=== PATIENT | female | born 1995 | race Caucasian/White ===

== ENCOUNTER 2016-07-31 23:42 | Emergency (ER) | payer OTHER ==
[2016-08-01 00:40] LABS: AUTOMATED NEUTROPHIL # 3.8 TH/MM3 (1.8-7.7); BASOPHIL % 0.4 % (0.0-2.0); EOSINOPHIL # 0.1 TH/MM3 (0-0.4); EOSINOPHIL % 1.7 % (0.0-4.0); HEMATOCRIT 39.3 % (35.0-46.0); HEMO FLAGS DIFF FINAL; LYMPH % 37.9 % (9.0-44.0); LYMPHOCYTE # 2.9 TH/MM3 (1.0-4.8); MEAN CELL VOLUME 93.8 FL (80.0-100.0); MEAN CORPUSCULAR HEMOGLOBIN 33.6 PG (27.0-34.0); MEAN CORPUSCULAR HGB CONC 35.8 % (32.0-36.0); MONO % 10.3 % (0.0-8.0); NEUT % 49.7 % (16.0-70.0); PLATELET COUNT 219 TH/MM3 (150-450); RED BLOOD COUNT 4.19 MIL/MM3 (4.00-5.30); RED CELL DISTRIBUTION WIDTH 13.4 % (11.6-17.2); WHITE BLOOD COUNT 7.7 TH/MM3 (4.0-11.0)
[2016-08-01 01:15] LABS: ALKALINE PHOSPHATASE 69 U/L (45-117); ALT (GPT) 20 U/L (10-53); ANION GAP 8 MEQ/L (5-15); AST (GOT) 25 U/L (15-37); BICARBONATE 25.8 MEQ/L (21.0-32.0); BLOOD UREA NITROGEN 22 MG/DL (7-18); CHLORIDE 106 MEQ/L (98-107); GLOMERULAR FILTRATION RATE 93 ML/MIN (>89); SODIUM (NA) 140 MEQ/L (136-145); TOTAL BILIRUBIN ADULT 0.2 MG/DL (0.2-1.0)
[2016-08-01 01:18] LABS: ACETAMINOPHEN LESS THAN 2.0 MCG/ML (10.0-30.0); POTASSIUM 4.1 MEQ/L (3.5-5.1)
--- NOTE | 2016-08-01 02:07 | PD ---
HPI Chief Complaint: Snyder act Time Seen by Provider: 02:05 Travel History International Travel<30 days: No Contact w/Intl Traveler<30days: No Traveled to known affect area: No History of Present Illness HPI 20-year-old white female presents to emergency department under Snyder act by PD for psychological evaluation. The patient has a history of bipolar mental illness. She lives in a halfway. The patient states that she had called the police because she wanted to talk to a psychiatrist. The police captain senior stated that she had to make statements that she wanted to hurt herself so he could Snyder act her so she would be brought to the hospital. If he did not write that down and she would not be a ligamentous in the psychiatrist. The patient denies any true suicidal homicidal ideation. She states that she merely wanted to speak to a psychiatrist. She denies any plan on self-harm. No toxic ingestions. No recent illness. PFSH Past Medical History Narrative Medical Bipolar, learning disability ADHD: Yes Migraines: No Ulcer: No Tetanus Vaccination: < 5 Years Past Surgical History Surgical History: No Previous Surgery Appendectomy: No Cholecystectomy: No Social History Alcohol Use: Yes Tobacco Use: Yes Substance Use: Yes Allergies-Medications (Allergen,Severity, Reaction): Coded Allergies: No Known Allergies (Verified Allergy, Unknown, 02/18/06) Reported Meds & Prescriptions Reported Meds & Active Scripts Active Review of Systems Except as stated in HPI: all other systems reviewed are Neg Psychiatric: Positive: Depression, Mood Disorder, Substance Abuse, No: Anxiety , Suicidal Ideations, Disorder of Thought, Homicidal Ideation Physical Exam Narrative GENERAL: Well-nourished, well-developed patient. SKIN: Warm and dry. HEAD: Normocephalic and atraumatic. EYES: No scleral icterus. No injection or drainage. ENT: No nasal drainage noted. Mucous membranes pink. Airway patent. NECK: Supple, trachea midline. Moves head freely without obvious discomfort. CARDIOVASCULAR: Regular rate and rhythm without murmurs, gallops, or rubs. RESPIRATORY: Breath sounds equal bilaterally. No accessory muscle use. GASTROINTESTINAL: Abdomen soft, non-tender, nondistended. EXTREMITIES: No cyanosis or edema. BACK: Nontender without obvious deformity. No CVA tenderness. NEURO: Patient is alert and oriented. no sensorimotor deficits. Nonfocal. Normal speech. PSYCH: No delusions. No auditory or visual hallucinations. Data Data Orders Complete Blood Count With Diff (08/01/16 00:02) Comprehensive Metabolic Panel (08/01/16 00:02) Ed Urine Pregnancytest Poc (08/01/16 00:02) Psych Screen (08/01/16 00:02) Drug Screen, Random Urine (08/01/16 00:02) Alcohol (Ethanol) (08/01/16 00:02) Salicylates (Aspirin) (08/01/16 00:02) Tylenol (Acetaminophen) (08/01/16 00:02) Diet Regular Basic (08/01/16 Breakfast) Labs Laboratory Tests Test 08/01/16 00:20 White Blood Count 7.7 TH/MM3 Red Blood Count 4.19 MIL/MM3 Hemoglobin 14.1 GM/DL Hematocrit 39.3 % Mean Corpuscular Volume 93.8 FL Mean Corpuscular Hemoglobin 33.6 PG Mean Corpuscular Hemoglobin 35.8 % Concent Red Cell Distribution Width 13.4 % Platelet Count 219 TH/MM3 Mean Platelet Volume 9.4 FL Neutrophils (%) (Auto) 49.7 % Lymphocytes (%) (Auto) 37.9 % Monocytes (%) (Auto) 10.3 % Eosinophils (%) (Auto) 1.7 % Basophils (%) (Auto) 0.4 % Neutrophils # (Auto) 3.8 TH/MM3 Lymphocytes # (Auto) 2.9 TH/MM3 Monocytes # (Auto) 0.8 TH/MM3 Eosinophils # (Auto) 0.1 TH/MM3 Basophils # (Auto) 0.0 TH/MM3 CBC Comment DIFF FINAL Differential Comment Sodium Level 140 MEQ/L Potassium Level 4.1 MEQ/L Chloride Level 106 MEQ/L Carbon Dioxide Level 25.8 MEQ/L Anion Gap 8 MEQ/L Blood Urea Nitrogen 22 MG/DL Creatinine 0.78 MG/DL Estimat Glomerular Filtration 93 ML/MIN Rate Random Glucose 101 MG/DL Calcium Level 8.6 MG/DL Total Bilirubin 0.2 MG/DL Aspartate Amino Transf 25 U/L (AST/SGOT) Alanine Aminotransferase 20 U/L (ALT/SGPT) Alkaline Phosphatase 69 U/L Total Protein 7.6 GM/DL Albumin 3.5 GM/DL Salicylates Level LESS THAN 1.7 MG/DL Acetaminophen Level LESS THAN 2.0 MCG/ML Ethyl Alcohol Level LESS THAN 3 MG/DL MDM Medical Decision Making Medical Screen Exam Complete: Yes Emergency Medical Condition: Yes Medical Record Reviewed: Yes Interpretation(s) CBC & BMP Diagram 08/01/16 00:20 Differential Diagnosis MDM: High Differential diagnoses: Schizophrenia, schizoaffective disorder, bipolar, anxiety, depression, adjustment reaction, mood disorder NOS, ODD, depressive disorder NOS, dementia, dementia with agitation, psychosis NOS, substance induced mood disorder, intermittent explosive disorder, Asperger syndrome, infection,electrolyte abnormality, malingering. Narrative Course Mental health screening discussed with the patient. Psychiatric screen ordered. The patient been medically cleared. Diagnosis Primary Impression: Bipolar 1 disorder Condition: Stable Rob George Aug 01, 2016 02:07
[2016-08-01 02:51] LABS: AMPHETAMINE, URINE NEG (NEG); BARBITURATES, URINE NEG (NEG); COCAINE, URINE NEG (NEG)
[2016-08-01 06:39] VITALS: BP 121/53; PULSE 89; RESP 17; O2SAT 98
[2016-08-01] MEDS ORDERED: GUAN2ER PO ×2 (08:09→10:49)
[2016-08-01] MEDS ORDERED: DIVA250ER PO (08:09)
[2016-08-01] MEDS ORDERED: ZIPRASIDONE MESYLATE 20 MG VIAL IM ONE (09:30)
[2016-08-01] MEDS ORDERED: LORazepam 2 MG/ML VIAL ONE (09:52)
[2016-08-01] MEDS ORDERED: LORazepam 2 MG/ML VIAL IM ONE (10:15)
[2016-08-01] MEDS ORDERED: QUET300XR PO (10:49)
[2016-08-01] MEDS ORDERED: LEVO50TA4 PO (10:49)
[2016-08-01] MEDS ORDERED: DEPA500T3 PO (10:49)
[2016-08-01] MEDS ORDERED: MEDR150I11 IM (10:49)
[2016-08-01] MEDS ORDERED: SERT-132 PO (10:49)
[2016-08-01 15:37] VITALS: BP 97/51; PULSE 93; RESP 18; TEMP 98.6; O2SAT 97
== END 2016-08-01 19:12 | disposition home or self-care (01) ==
LOC: NEPJ 23:42
DX: F31.9 Bipolar disorder, unspecified (principal); Z72.0 Tobacco use
CPT/HCPCS: 80053; 80164; 80307; 84703; 85025; 96372; 99284; J2060; J3486

== ENCOUNTER 2016-08-08 07:38 | Emergency (ER) | payer OTHER ==
[~2016-08-08] VITALS: Ht 167.6 cm; Wt 110.0 kg
[~2016-08-08 07:38] MED LIST: DEPA500T3 PO; DIVA250ER PO; GUAN2ER PO; LEVO50TA4 PO; MEDR150I11 IM; QUET300XR PO; SERT-132 PO
[2016-08-08] MEDS ORDERED: SODIUM CHLORIDE 0.9% FLUSH 10 ML FLUSH IV FLUSH PRN (07:45)
[2016-08-08] MEDS ORDERED: SODIUM CHLOR 0.9% 1000 ML INJ 1,000 ML IV SCH (07:45)
[2016-08-08 07:50] VITALS: BP 119/70; PULSE 107; RESP 20; RESP 21; TEMP 98.1; O2SAT 98
--- NOTE | 2016-08-08 08:00 | PD ---
HPI Chief Complaint: abdominal pain Time Seen by Provider: 07:45 Travel History International Travel<30 days: No Contact w/Intl Traveler<30days: No Traveled to known affect area: No History of Present Illness HPI This is a 20-year-old female who appears to have a developmental delay, seizure disorder, hypothyroidism, just today via EMS with complaints of right lower abdominal pain. Patient states it started throughout the night. She denies any fevers, chills. She does state that she has nausea with no vomiting. The patient states she has chronic bowel issues. The patient has had no abdominal surgeries. She denies any vaginal discharge or vaginal bleeding. She becomes vague when asked about possibility of . She states that she is just recently had a test but has not had the results back with states she is not . There are no other complaints the time of my examination. PFSH Past Medical History ADHD: Yes Psychiatric: Yes (EXPLOSIVE D/O, CONDUCT D/O) Migraines: No Thyroid Disease: Yes (HYPO) Ulcer: No Past Surgical History Appendectomy: No Cholecystectomy: No Social History Alcohol Use: No Tobacco Use: No Substance Use: No Allergies-Medications (Allergen,Severity, Reaction): Coded Allergies: No Known Allergies (Verified Allergy, Unknown, 02/18/06) Reported Meds & Prescriptions Reported Meds & Active Scripts Active Reported Intuniv (Guanfacine HCl) 2 Mg Bebe 2 Mg PO HS Do not crush, chew or divide tablet. Take with a meal. Medroxyprogesterone Inj 150 Mg/Ml Inj 150 Mg IM Q90D Levothyroxine (Levothyroxine Sodium) 50 Mcg Tab 50 Mcg PO DAILY Sertraline (Sertraline HCl) 50 Mg Tab 50 Mg PO DAILY Seroquel XR (Quetiapine Fumarate) 300 Mg Tab 600 Mg PO HS Depakote ER (Divalproex Sodium) 500 Mg Bebe 1,000 Mg PO HS Depakote ER (Divalproex Sodium) 250 Mg Bebe 500 Mg PO DAILY Review of Systems Except as stated in HPI: all other systems reviewed are Neg General / Constitutional: No: Fever, Chills HENT: No: Headaches, Lightheadedness Cardiovascular: No: Chest Pain or Discomfort, Palpitations Respiratory: No: Cough, Shortness of Breath Gastrointestinal: Positive: Nausea, Abdominal Pain (right lower), Changes in Bowel Habits (chronic), No: Vomiting, Diarrhea Genitourinary: No: Frequency, Dysuria, Pelvic Pain (denies), Discharge, Vaginal Bleeding Musculoskeletal: No: Weakness Neurologic: No: Weakness, Dizziness, Headache Physical Exam Narrative GENERAL: Well-nourished, well-developed patient. SKIN: Focused skin assessment warm/dry. HEAD: Normocephalic/atraumatic. EYES: No scleral icterus. No injection or drainage. NECK: Supple, trachea midline. CARDIOVASCULAR: Regular rate and rhythm without murmurs, gallops, or rubs. RESPIRATORY: Breath sounds equal bilaterally. No accessory muscle use. GASTROINTESTINAL: Abdomen soft, nondistended. The patient has tenderness to palpation in her right lateral abdomen at the umbilical level. There is questionable rebound but no guarding. GENITOURINARY: Declined MUSCULOSKELETAL: No cyanosis, or edema. NEUROLOGICAL: Awake and alert. Cranial nerves II through XII intact. Motor grossly within normal limits. Five out of 5 muscle strength in all muscle groups. Normal speech. Data Data Last Documented VS Vital Signs Date Time Temp Pulse Resp B/P Pulse Ox O2 Delivery O2 Flow Rate FiO2 08/08/16 07:50 98.1 107 20 119/70 98 Room Air Orders Complete Blood Count With Diff (08/08/16 07:45) Comprehensive Metabolic Panel (08/08/16 07:45) Lipase (08/08/16 07:45) Urinalysis - C+S If Indicated (08/08/16 07:45) Iv Access Insert/Monitor (08/08/16 07:45) Ecg Monitoring (08/08/16 07:45) Oximetry (08/08/16 07:45) Sodium Chlor 0.9% 1000 Ml Inj (Ns 1000 M (08/08/16 07:45) Sodium Chloride 0.9% Flush (Ns Flush) (08/08/16 07:45) Ed Urine Pregnancytest Poc (08/08/16 07:45) MDM Medical Decision Making Medical Screen Exam Complete: Yes Emergency Medical Condition: Yes Differential Diagnosis Ectopic versus appendicitis versus ruptured ovarian cyst Narrative Course I was called to the bedside by the nurse. The patient states she does not wish to stay and have her workup completed. I've informed her that she could have an acute surgical emergency. She states that she feels better and does not wish to stay. She is warned that if she did have an acute emergency, it could result in . She states she understands and still wishes to sign out AGAINST MEDICAL ADVICE. AMA: The risks of leaving against medical advice without further evaluation treatment were discussed with the patient. These risks include cardiac dysfunction, cardiac dysrhythmia, possible heart attack, possible stroke or . The patient indicated understanding of these risks and appeared to have the capacity to make this decision. Diagnosis Primary Impression: Abdominal pain Additional Impression: Left against medical advice Disposition: 07 AGAINST MEDICAL ADVICE Condition: Good Jose Brown MD Aug 08, 2016 08:00
== END 2016-08-08 08:24 | disposition left against medical advice (07) ==
LOC: NEPC 07:38
DX: R10.31 Right lower quadrant pain (principal); R11.0 Nausea
CPT/HCPCS: 99284

== ENCOUNTER 2017-03-17 15:08 | Inpatient (IN) | payer OTHER ==
[~2017-03-17] VITALS: Ht 162.6 cm; Wt 102.9 kg
[2017-03-17 15:35] VITALS: BP 146/79; PULSE 108; RESP 18; TEMP 98.3; O2SAT 97
[2017-03-17] MEDS ORDERED: VENTAER INH (15:52)
[2017-03-17] MEDS ORDERED: QUET300XR PO (15:52)
[2017-03-17] MEDS ORDERED: GUAN1ER PO (15:52)
--- NOTE | 2017-03-17 16:05 | PD ---
HPI Chief Complaint: Psychiatric Symptoms Time Seen by Provider: 15:36 Travel History International Travel<30 days: No Contact w/Intl Traveler<30days: No Traveled to known affect area: No History of Present Illness HPI 21-year-old female presents to the emergency department under Snyder act for ingestion of an unknown substance. The patient denies that this was a suicidal attempt. She denies suicidal ideation. She says she was trying to calm herself down and took 6 different pills. She thinks they were her thyroid pills and antidepressant medication. She reports drinking alcohol last night. Reports smoking marijuana, crack cocaine, K2, and cigarettes. Denies visual or auditory hallucinations. Reports history of suicidal attempt by tying a rope around her neck. Denies homicidal ideations. History of bipolar disorder and asthma. No known allergies. Has no emergent medical complaints at this time. Denies chest pain, shortness breath or abdominal pain, nausea, vomiting, change in urine or stool. Unknown LMP. Says she was due Depo-Provera shot last month. No other modifying factors or associated signs and symptoms. PFSH Past Medical History ADHD: Yes Bipolar Disorder: Yes Diminished Hearing: No Psychiatric: Yes (EXPLOSIVE D/O, CONDUCT D/O) Immunizations Current: No Migraines: No Seizures: Yes Thyroid Disease: Yes Ulcer: No ?: Not LMP: HASN'T HAD FOR MONTHS/PER [facility] NEGATIVE : 0 Para: 0 Past Surgical History Appendectomy: No Cholecystectomy: No Other Surgery: No Social History Alcohol Use: Yes Tobacco Use: Yes (1/2 PPD ) Substance Use: Yes (COCAINE, K2, MARIJUANA) Allergies-Medications (Allergen,Severity, Reaction): Coded Allergies: No Known Allergies (Verified Allergy, Unknown, 02/18/06) Reported Meds & Prescriptions Reported Meds & Active Scripts Active Reported Intuniv (Guanfacine HCl) 1 Mg Bebe 1 Mg PO DAILY Do not crush, chew or divide tablet. Take with a meal. Ventolin Hfa 18 GM Inh (Albuterol Sulfate) 90 Mcg/Act Aer 1 Puff INH Q4H PRN Seroquel XR (Quetiapine Fumarate) 300 Mg Tab 300 Mg PO HS Levothyroxine (Levothyroxine Sodium) 50 Mcg Tab 50 Mcg PO DAILY Sertraline (Sertraline HCl) 50 Mg Tab 50 Mg PO DAILY Depakote ER (Divalproex Sodium) 250 Mg Bebe 500 Mg PO DAILY Review of Systems Except as stated in HPI: all other systems reviewed are Neg Physical Exam Narrative GENERAL: Well-nourished, well-developed female patient, in no acute distress SKIN: Warm and dry. HEAD: Atraumatic. Normocephalic. EYES: Pupils equal and round. ENT: Mucosa pink and moist. NECK: Supple. Trachea midline. CARDIOVASCULAR: Regular rate and rhythm. No murmur appreciated. RESPIRATORY: No accessory muscle use. Clear to auscultation. Breath sounds equal bilaterally. GASTROINTESTINAL: Abdomen soft, non-tender, nondistended. Hepatic and splenic margins not palpable. Bowel sounds are active 4 quadrants. MUSCULOSKELETAL: No obvious deformities. No clubbing. No cyanosis. No edema. BACK: No CVA tenderness. NEUROLOGICAL: Awake and alert. Oriented 3. No obvious cranial nerve deficits. Motor grossly within normal limits. Normal speech. Moves all extremities. 5/5 strength to all extremities. PSYCHIATRIC: No delusional thought processes. No hallucinations. Data Data Last Documented VS Vital Signs Date Time Temp Pulse Resp B/P (MAP) Pulse Ox O2 Delivery O2 Flow Rate FiO2 03/17/17 15:35 98.3 108 18 146/79 (101) 97 Room Air Orders Orders Psych Screen (03/17/17 15:36) [facility] Medical Decision Making Medical Screen Exam Complete: Yes Emergency Medical Condition: Yes Medical Record Reviewed: Yes Differential Diagnosis Suicidal threat, suicidal attempt, polysubstance abuse medical clearance for psych evaluation Narrative Course Patient medically cleared and had labs drawn at [facility]. Patient transferred to [place] under [place] act. I reviewed the labs and urinalysis shows signs of infection. The patient was sent with a prescription for Keflex 500 mg by mouth 2 times daily for 3 days. Drug screen was positive for cannabinoids. CBC, CMP, coags unremarkable. Acetaminophen level less than 15. Salicylate level less than 0.3. Valproic acid level less than 2.8. Blood alcohol less than 10. Serum hCG negative. Psych screen ordered. Patient cleared for psychiatric evaluation. Diagnosis Primary Impression: Medical clearance for psychiatric admission Condition: Stable ZuleykaMelissa RUANO Mar 17, 2017 16:05
[2017-03-17 18:25] VITALS: BP 133/90; PULSE 101; RESP 20; TEMP 98; O2SAT 97
[2017-03-17 22:00] VITALS: BP 147/92; PULSE 108; RESP 17; TEMP 98.9; O2SAT 100
[2017-03-17] MEDS ORDERED: ACETAMINOPHEN 325 MG TAB PO PRN (23:45)
[2017-03-17] MEDS ORDERED: LORazepam 2 MG/ML VIAL IM PRN (23:45)
[2017-03-17] MEDS ORDERED: MAGNESIUM HYDROXIDE SUSP 30 ML CUP PO PRN (23:45)
[2017-03-17] MEDS ORDERED: ALUMINUM/MAGNESIUM/SIMETH 30 ML CUP PO PRN (23:45)
[2017-03-17] MEDS ORDERED: LORazepam 1 MG TAB PO PRN (23:45)
[2017-03-18 05:56] VITALS: BP 133/75; PULSE 85; RESP 16; TEMP 98.7; O2SAT 98
[2017-03-18] MEDS: CEPHALEXIN MONOHYDRATE 500 MG CAP PO SCH ×2 (09:00→21:31)
[2017-03-18] MEDS: NICOTINE 21 MG/24 HR PATCH T-DERMAL SCH (09:00)
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
[2017-03-18] MEDS ORDERED: FLUMAZENIL 0.5 MG/5 ML VIAL IV PUSH PRN (10:30)
[2017-03-18] MEDS ORDERED: LORazepam 2 MG TAB PO PRN (10:30)
[2017-03-18] MEDS ORDERED: LORazepam 1 MG TAB PO PRN (10:30)
[2017-03-18] MEDS ORDERED: LORazepam 2 MG/ML VIAL IV PUSH PRN ×4 (10:30)
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
[2017-03-18] MEDS ORDERED: diphenhydrAMINE HCL 50 MG/ML VIAL IM STA (17:04)
[2017-03-18] MEDS ORDERED: ZIPRASIDONE MESYLATE 20 MG VIAL IM STA (17:04)
[2017-03-18] MEDS ORDERED: ZIPRASIDONE MESYLATE 20 MG VIAL IM ONE (17:06)
[2017-03-18] MEDS ORDERED: diphenhydrAMINE HCL 50 MG/ML VIAL ONE (17:07)
[2017-03-18] MEDS: REMOVE OLD NICOTINE PATCH T-DERMAL SCH (21:00)
[2017-03-18] MEDS: QUEtiapine FUMARATE 300 MG TAB PO SCH (21:31)
[2017-03-18] MEDS: DIVALPROEX DR 500 MG TABEC PO SCH (21:32)
[2017-03-18] MEDS: ATORVASTATIN 10 MG TAB PO SCH (21:35)
[2017-03-19 05:42] VITALS: BP 107/61; PULSE 80; RESP 18; TEMP 97.4; O2SAT 98
[2017-03-19] MEDS: LEVOTHYROXINE SODIUM 50 MCG TAB PO SCH (06:05)
[2017-03-19] MEDS: QUEtiapine FUMARATE 300 MG TAB PO SCH ×2 (09:00→21:00)
[2017-03-19] MEDS: DIVALPROEX DR 500 MG TABEC PO SCH ×2 (09:00→21:00)
[2017-03-19] MEDS: NICOTINE 21 MG/24 HR PATCH T-DERMAL SCH (09:00)
[2017-03-19] MEDS: FOLIC ACID 1 MG TAB PO SCH (09:00)
[2017-03-19] MEDS: SERTRALINE HCL 50 MG TAB PO SCH (09:00)
[2017-03-19] MEDS: THIAMINE HCL 100 MG TAB PO SCH (09:00)
[2017-03-19] MEDS ORDERED: guanFACINE HCL 2 MG E.R. TAB PO SCH (09:00)
[2017-03-19] MEDS: CEPHALEXIN MONOHYDRATE 500 MG CAP PO SCH ×2 (09:00→21:00)
--- NOTE | 2017-03-19 09:03 | HHI.PYPN ---
Subjective Chief Complaint: "I took 6 pills to calm down." Remarks Patient seen and examined with nurse. Chart reviewed. Case discussed with nursing staff. Patient required ETO yesterday afternoon because she was acting out to get chocolate pudding. I spoke with pharmacy yesterday afternoon, and we do not stock Intuniv, and so I ordered this medication held. We have the immediate release guanfacine, but I did not want to cause hypotension and so opted against this agent. On my initial examination today, patient is feigning sleep. I return a little while later to speak with the patient. She purports to have no recollection of her acting out behavior yesterday. She remains quite childlike. She denies SI/HI/AVH. She denies side effects from medications and says that these "help calm me down." No physical complaints. I have an extensive discussion with patient regarding [place] Act, voluntary and involuntary admission statuses as well as the right of release. Based on this conversation, I banquet waiter/waitress that she has a satisfactory understanding to be offered to sign voluntary. Review of Systems Except as stated in HPI: all other systems reviewed are Neg Mental Status Examination Appearance: Appropriate Consciousness: Alert Orientation: x4 Motor Activity: Normal gait, Other (No abnormal motor movements noted) Speech: Unremarkable Language: Adequate Fund of Knowledge: Inadequate Attention and Concentration: Adequate Memory: Unremarkable Mood: Good Affect: Euthymic (remains childlike) Thought Process & Associations: Intact (linear, again perseverative on discharge) Thought Content: Appropriate Hallucination Type: None Delusion Type: None Suicidal Ideation: No Suicidal Plan: No Suicidal Intention: No Homicidal Ideation: No Homicidal Plan: No Homicidal Intention: No Insight: Poor (likely chronically so) Judgment: Poor (likely chronically so) Mental Status Exam Remarks No signs of any withdrawal noted Results Labs Labs reviewed. Lipid panel noted. Free T4 very mildly elevated, perhaps as a consequence of her presenting ingestion, but TSH wnl. EKG sinus rhythm with a QTC of 412 ms. Vitals/IOs Vital Signs Date Time Temp Pulse Resp B/P (MAP) Pulse Ox O2 Delivery O2 Flow Rate FiO2 03/19/17 05:42 97.4 80 18 107/61 (76) 98 03/17/17 18:25 Room Air Assessment & Plan Problem List: (1) Adjustment disorder with mixed disturbance of emotions and conduct ICD Codes: F43.25 - Adjustment disorder with mixed disturbance of emotions and conduct (2) Polysubstance abuse ICD Codes: F19.10 - Other psychoactive substance abuse, uncomplicated (3) Borderline intellectual functioning ICD Codes: R41.83 - Borderline intellectual functioning Assessment & Plan Continue Depakote, Seroquel and Zoloft as ordered for now. To consider further titration of Seroquel should behavior necessitate this. Given that patient had been nonadherent with antiepileptic and purports to have no knowledge of her behavioral outburst yesterday, check EEG to assess for possible seizure. Hospitalist input noted and appreciated. Continue to monitor on the high acuity unit. Continue other medications and care as ordered. Patient may sign voluntary. Justification for Cont. Inpt. Monitoring for impairments in safety. Discharge Planning Anticipate discharge by the end of the week. Patient's resources in the community are presently unclear, and I have instructed the counselor to explore these and come up with a discharge plan. Request HC Surrog/Guard Advoc?: No Ricky Spangler MD Mar 19, 2017 09:03
[2017-03-19 11:54] LABS: FREE T4 1.53 NG/DL (0.76-1.46); HDL CHOLESTEROL 31.3 MG/DL (40.0-60.0); LDL CHOLESTEROL 87 MG/DL (0-99)
[2017-03-19 16:48] VITALS: BP 130/83; PULSE 102; RESP 16; TEMP 98.6; O2SAT 100
[2017-03-19 17:29] LABS: HEMOGLOBIN A1a 0.7 %; HEMOGLOBIN A1b 0.9 %; HEMOGLOBIN Ao 85.8 %; HEMOGLOBIN F 1.2 %; HEMOGLOBIN LA1C 1.9 %; HEMOGLOBIN P3 3.6 %
--- NOTE | 2017-03-19 18:33 | MG ---
cc: DUYEN MCLEOD Lab No: Date: 03/19/2017 Age: Sex: F Race: TEST NUMBER [id number] INDICATION A 21-year-old, crack cocaine, bipolar, alcohol abuse. MEDICATIONS 1. Zoloft. 2. Seroquel. DESCRIPTION A 10 Hz 60 microvolt symmetric posterior rhythm is noted. The recording overall is synchronous and symmetric. Photic stimulation is performed without significant posterior driving. Hyperventilation was performed with good effort and without change in the background. No epileptiform or seizure activity is noted. There were no hemisphere asymmetries. IMPRESSION A normal awake EEG. No evidence for a focal or diffuse abnormality. MD ROC Aguilar/JACQUELYN /6:13 PM /6:24 PM
--- NOTE | 2017-03-19 18:54 | EKG ---
Date Performed: 03/18/2017 Time Performed: 21:44:03 PTAGE: 21 years EKG: Sinus rhythm NONSPECIFIC T-WAVE ABNORMALITY BORDERLINE ECG NO PREVIOUS TRACING DOCTOR: Marina Goyal Interpretating Date/Time 03/19/2017 18:53:28
[2017-03-19] MEDS: ATORVASTATIN 10 MG TAB PO SCH (21:00)
[2017-03-19] MEDS: REMOVE OLD NICOTINE PATCH T-DERMAL SCH (21:00)
[2017-03-20 05:43] VITALS: BP 110/72; PULSE 106; RESP 17; TEMP 98.3; O2SAT 98
[2017-03-20] MEDS: LEVOTHYROXINE SODIUM 50 MCG TAB PO SCH (06:00)
[2017-03-20] MEDS ORDERED: LEVO50TA4 PO (08:10)
[2017-03-20] MEDS ORDERED: LIPI10TA PO (08:10)
[2017-03-20] MEDS ORDERED: QUET1TAB10 PO (08:10)
[2017-03-20] MEDS ORDERED: SERT-132 PO (08:10)
[2017-03-20] MEDS ORDERED: DIVA500T PO ×2 (08:10)
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
[2017-03-20] MEDS: QUEtiapine FUMARATE 300 MG TAB PO SCH (08:44)
[2017-03-20] MEDS: CEPHALEXIN MONOHYDRATE 500 MG CAP PO SCH (08:44)
[2017-03-20] MEDS: SERTRALINE HCL 50 MG TAB PO SCH (08:44)
[2017-03-20] MEDS: THIAMINE HCL 100 MG TAB PO SCH (08:44)
[2017-03-20] MEDS: FOLIC ACID 1 MG TAB PO SCH (08:44)
[2017-03-20] MEDS: DIVALPROEX DR 500 MG TABEC PO SCH (08:56)
[2017-03-20] MEDS: NICOTINE 21 MG/24 HR PATCH T-DERMAL SCH (09:00)
[2017-03-20 09:38] LABS: AUTOMATED NEUTROPHIL # 1.5 TH/MM3 (1.8-7.7); BASOPHIL % 0.7 % (0.0-2.0); EOSINOPHIL # 0.1 TH/MM3 (0-0.4); EOSINOPHIL % 1.9 % (0.0-4.0); HEMATOCRIT 38.8 % (35.0-46.0); HEMO FLAGS DIFF FINAL; LYMPH % 51.2 % (9.0-44.0); LYMPHOCYTE # 2.2 TH/MM3 (1.0-4.8); MEAN CORPUSCULAR HEMOGLOBIN 32.5 PG (27.0-34.0); MEAN CORPUSCULAR HGB CONC 34.2 % (32.0-36.0); NEUT % 35.2 % (16.0-70.0); PLATELET COUNT 178 TH/MM3 (150-450); RED BLOOD COUNT 4.08 MIL/MM3 (4.00-5.30); WHITE BLOOD COUNT 4.2 TH/MM3 (4.0-11.0)
[2017-03-20 10:08] LABS: ANION GAP 8 MEQ/L (5-15); AST (GOT) 13 U/L (15-37); BICARBONATE 27.2 MEQ/L (21.0-32.0); BLOOD UREA NITROGEN 11 MG/DL (7-18); CHLORIDE 105 MEQ/L (98-107); GLOMERULAR FILTRATION RATE 94 ML/MIN (>89); POTASSIUM 3.5 MEQ/L (3.5-5.1); SODIUM (NA) 140 MEQ/L (136-145)
[2017-03-20 10:09] LABS: ALT (GPT) 22 U/L (10-53)
[2017-03-20 10:11] LABS: ALKALINE PHOSPHATASE 62 U/L (45-117); TOTAL BILIRUBIN ADULT 0.4 MG/DL (0.2-1.0)
== END 2017-03-20 13:00 | disposition home or self-care (01) | DRG 882 ==
LOC: NEPD 15:08 → NEDA 21:50 → H270 22:08
PROVIDERS: ADMIT Psychiatry & Neurology Psychiatry; ATTEND Psychiatry & Neurology Psychiatry
DX: F43.25 Adjustment disorder with mixed disturbance of emotions and conduct (principal); G40.909 Epilepsy, unspecified, not intractable, without status epilepticus; N39.0 Urinary tract infection, site not specified; T38.1X1A Poisoning by thyroid hormones and substitutes, accidental (unintentional), initial encounter; F31.9 Bipolar disorder, unspecified; F60.4 Histrionic personality disorder; F19.10 Other psychoactive substance abuse, uncomplicated; F90.9 Attention-deficit hyperactivity disorder, unspecified type; F91.3 Oppositional defiant disorder; R41.83 Borderline intellectual functioning; J45.909 Unspecified asthma, uncomplicated; E03.9 Hypothyroidism, unspecified; E78.5 Hyperlipidemia, unspecified; R45.87 Impulsiveness; Z72.0 Tobacco use; Z62.810 Personal history of physical and sexual abuse in childhood; Z81.3 Family history of other psychoactive substance abuse and dependence; Z91.5 Personal history of self-harm; Z91.410 Personal history of adult physical and sexual abuse
CPT/HCPCS: 80053; 80061; 83036; 84439; 84443; 93005; 95819; J1200; J3486

== ENCOUNTER 2017-03-28 11:02 | Inpatient (IN) | payer OTHER ==
[~2017-03-28 11:02] MED LIST changes: -DEPA500T3 PO; -DIVA250ER PO; +DIVA500T PO; -GUAN2ER PO; +LIPI10TA PO; -MEDR150I11 IM; +QUET1TAB10 PO; -QUET300XR PO; +VENTAER INH
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
[2017-03-28 12:24] LABS: AUTOMATED NEUTROPHIL # 2.9 TH/MM3 (1.8-7.7); BASOPHIL # 0.1 TH/MM3 (0-0.2); BASOPHIL % 1.1 % (0.0-2.0); EOSINOPHIL # 0.1 TH/MM3 (0-0.4); HEMO FLAGS DIFF FINAL; LYMPHOCYTE # 2.4 TH/MM3 (1.0-4.8); MEAN CELL VOLUME 95.1 FL (80.0-100.0); MEAN CORPUSCULAR HEMOGLOBIN 32.7 PG (27.0-34.0); MEAN CORPUSCULAR HGB CONC 34.3 % (32.0-36.0); MONO % 7.4 % (0.0-8.0); NEUT % 49.5 % (16.0-70.0); PLATELET COUNT 229 TH/MM3 (150-450); RED BLOOD COUNT 4.52 MIL/MM3 (4.00-5.30); RED CELL DISTRIBUTION WIDTH 14.4 % (11.6-17.2); WHITE BLOOD COUNT 5.9 TH/MM3 (4.0-11.0)
[2017-03-28] MEDS ORDERED: diphenhydrAMINE HCL 50 MG/ML VIAL IM ONE ×2 (12:45→23:00)
[2017-03-28] MEDS ORDERED: ZIPRASIDONE MESYLATE 20 MG VIAL IM ONE ×3 (12:45→23:00)
[2017-03-28 12:54] LABS: ANION GAP 8 MEQ/L (5-15); AST (GOT) 16 U/L (15-37); BICARBONATE 20.4 MEQ/L (21.0-32.0); BLOOD UREA NITROGEN 13 MG/DL (7-18); CHLORIDE 110 MEQ/L (98-107); GLOMERULAR FILTRATION RATE 123 ML/MIN (>89); POTASSIUM 4.2 MEQ/L (3.5-5.1); SODIUM (NA) 138 MEQ/L (136-145)
[2017-03-28 12:55] LABS: ALT (GPT) 20 U/L (10-53)
[2017-03-28 12:57] LABS: ALKALINE PHOSPHATASE 65 U/L (45-117); TOTAL BILIRUBIN ADULT 0.4 MG/DL (0.2-1.0)
[2017-03-28] MEDS ORDERED: LORazepam 2 MG/ML VIAL IM ONE ×2 (13:00→23:00)
[2017-03-28 13:39] VITALS: BP 119/67; PULSE 98; RESP 16; TEMP 97.3; O2SAT 97
[2017-03-28 16:00] VITALS: BP 128/76; PULSE 100; RESP 18; TEMP 97.9; O2SAT 99
[2017-03-28] MEDS ORDERED: BENZTROPINE MESYLATE 1 MG TAB PO PRN (16:15)
[2017-03-28] MEDS ORDERED: ACETAMINOPHEN 325 MG TAB PO PRN (16:15)
[2017-03-28] MEDS ORDERED: ALUMINUM/MAGNESIUM/SIMETH 30 ML CUP PO PRN (16:15)
[2017-03-28] MEDS ORDERED: diphenhydrAMINE HCL 50 MG CAP PO PRN (16:15)
[2017-03-28] MEDS ORDERED: LORazepam 1 MG TAB PO PRN (16:15)
[2017-03-28] MEDS ORDERED: BENZTROPINE MESYLATE 2 MG/2 ML VIAL IM PRN (16:15)
[2017-03-28] MEDS ORDERED: ALBUTEROL SULFATE 90 MCG/ACT HFA 8 GM INHALER INH PRN (16:15)
[2017-03-28] MEDS ORDERED: MAGNESIUM HYDROXIDE SUSP 30 ML CUP PO PRN (16:15)
[2017-03-28] MEDS ORDERED: LORazepam 2 MG/ML VIAL IM PRN (16:15)
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
[2017-03-28 17:12] LABS: BACTERIA, URINE OCC /hpf; BLOOD, URINE SMALL (NEG); COMMENT (UR) CULTURE INDICATED; CULTURE IF INDICATED CULTURE INDICATED; GLUCOSE,URINE NEG (NEG); HYALINE CAST, URINE 7 /lpf (RARE); KETONE, URINE NEG (NEG); MUCUS URINE MANY /lpf (OCC); NITRITE,URINE NEG (NEG); SQUAMOUS EPITHELIAL CELL URINE 9 /hpf (0-5); URINE COLOR YELLOW (YELLW/STRAW)
[2017-03-28] MEDS ORDERED: DIVALPROEX DR 500 MG TABEC PO SCH (21:00)
[2017-03-28] MEDS: ATORVASTATIN 10 MG TAB PO SCH (21:00)
[2017-03-28] MEDS ORDERED: LORazepam 2 MG/ML VIAL ONE (22:46)
[2017-03-28] MEDS ORDERED: diphenhydrAMINE HCL 50 MG/ML VIAL ONE (22:52)
[2017-03-29] MEDS: LEVOTHYROXINE SODIUM 50 MCG TAB PO SCH (05:15)
[2017-03-29] MEDS: NICOTINE 21 MG/24 HR PATCH T-DERMAL SCH (08:19)
[2017-03-29] MEDS ORDERED: ARIPiprazole 10 MG TAB PO SCH (09:00)
[2017-03-29] MEDS ORDERED: DIVALPROEX DR 500 MG TABEC PO SCH (09:00)
[2017-03-29] MEDS ORDERED: LORazepam 2 MG/ML VIAL IM PRN (13:45)
--- NOTE | 2017-03-29 14:52 | HHI.PYPN ---
Subjective Remarks This is a request for second opinion. Patient was seen and case discussed with nursing. Admission note was reviewed and I agree with the contents. Patient has been behaving well on the unit but she remains childlike and becomes irritable when she does not get her way. She is was perseverative on discharge today when she felt that it would not happen she almost threw a tantrum. Compliant with her medications Mental Status Examination Appearance: Disheveled Consciousness: Alert, Vigilant Orientation: Person, Place, Date/Time Motor Activity: Normal gait Speech: Unremarkable Language: Adequate Fund of Knowledge: Inadequate Attention and Concentration: Easily Distracted Memory: Unremarkable (not tested) Mood: Oppositional, Anxious Affect: Irritable, Labile Thought Process & Associations: Disorganized Thought Content: Preoccupations Hallucination Type: None Suicidal Ideation: No Suicidal Plan: No Suicidal Intention: No Homicidal Ideation: No Homicidal Plan: No Homicidal Intention: No Insight: Poor Judgment: Poor Results Labs Test 03/28/17 16:30 Urine Color YELLOW Urine Turbidity HAZY Urine pH 6.0 Urine Specific [place] 1.024 Urine Protein 30 mg/dL Urine Glucose (UA) NEG mg/dL Urine Ketones NEG mg/dL Urine Occult Blood SMALL Urine Nitrite NEG Urine Bilirubin NEG Urine Urobilinogen 2.0 MG/DL Urine Leukocyte Esterase LARGE Urine RBC 23 /hpf Urine WBC 22 /hpf Urine Squamous Epithelial Cells 9 /hpf Urine Bacteria OCC /hpf Urine Hyaline Casts 7 /lpf Urine Mucus MANY /lpf Microscopic Urinalysis Comment CULTURE INDICATED Urine Opiates Screen NEG Urine Barbiturates Screen NEG Urine Amphetamines Screen NEG Urine Benzodiazepines Screen NEG Urine Cocaine Screen NEG Urine Cannabinoids Screen NEG Date/Time Source Procedure Growth Status 03/28/17 16:30 Urine Clean Catch Urine Culture - Preliminary IMMATURE GROWTH - REINCUBATE Resulted Vitals/IOs Vital Signs Date Time Temp Pulse Resp B/P (MAP) Pulse Ox O2 Delivery O2 Flow Rate FiO2 03/28/17 20:53 03/28/17 16:00 97.9 100 18 99 Room Air Assessment & Plan Problem List: (1) Bipolar 1 disorder ICD Codes: F31.9 - Bipolar disorder, unspecified Status: Acute (2) Adjustment disorder with mixed disturbance of emotions and conduct ICD Codes: F43.25 - Adjustment disorder with mixed disturbance of emotions and conduct (3) Borderline intellectual functioning ICD Codes: R41.83 - Borderline intellectual functioning Assessment & Plan I agree with the first opinion to continue petition. Criteria include aggressive behavior before admission Justification for Cont. Inpt. Patient would decompensate in a less restrictive setting Jonathan Moody DO Mar 29, 2017 14:52
[2017-03-29] MEDS ORDERED: HALOPERIDOL LACTATE 5 MG/ML AMP ONE (16:17)
[2017-03-29] MEDS ORDERED: diphenhydrAMINE HCL 50 MG/ML VIAL ONE (16:17)
[2017-03-29] MEDS ORDERED: HALOPERIDOL LACTATE 5 MG/ML AMP IM ONE (17:15)
[2017-03-29] MEDS ORDERED: LORazepam 2 MG/ML VIAL IM ONE (17:15)
[2017-03-29] MEDS ORDERED: diphenhydrAMINE HCL 50 MG/ML VIAL IM ONE (17:15)
[2017-03-29] MEDS: ATORVASTATIN 10 MG TAB PO SCH (20:12)
[2017-03-29] MEDS: diphenhydrAMINE HCL 50 MG CAP PO PRN (20:12)
[2017-03-29] MEDS: DIVALPROEX DR 500 MG TABEC PO SCH (20:13)
[2017-03-29] MEDS: LORazepam 1 MG TAB PO PRN (21:31)
[2017-03-30] MEDS: LEVOTHYROXINE SODIUM 50 MCG TAB PO SCH (06:33)
[2017-03-30] MEDS: NICOTINE 21 MG/24 HR PATCH T-DERMAL SCH (09:00)
[2017-03-30] MEDS: DIVALPROEX DR 500 MG TABEC PO SCH ×2 (09:00→21:35)
[2017-03-30] MEDS: REMOVE OLD PATCH T-DERMAL SCH (09:00)
[2017-03-30] MEDS: ARIPiprazole 10 MG TAB PO SCH (09:00)
[2017-03-30] MEDS: LORazepam 1 MG TAB PO PRN ×2 (10:46→22:53)
--- NOTE | 2017-03-30 12:20 | HHI.PYPN ---
Subjective Remarks Patient was seen and case discussed with nursing. Patient remains childlike and oppositional. She received an ETO last night after getting worked up that she could not leave. Today she says she will sleep all day and protest to make the day go faster. Perseverative on discharge tomorrow. Insight remains poor. No labile behavior today Mental Status Examination Appearance: Disheveled Consciousness: Alert, Vigilant Orientation: Person, Place, Date/Time Motor Activity: Normal gait Speech: Unremarkable Language: Adequate Fund of Knowledge: Inadequate Attention and Concentration: Easily Distracted Memory: Unremarkable (not tested) Mood: Oppositional Affect: Irritable Thought Process & Associations: Disorganized Thought Content: Preoccupations Hallucination Type: None Suicidal Ideation: No Suicidal Plan: No Suicidal Intention: No Homicidal Ideation: No Homicidal Plan: No Homicidal Intention: No Insight: Poor Judgment: Poor Results Labs Date/Time Source Procedure Growth Status 03/28/17 16:30 Urine Clean Catch Urine Culture - Final 50-100,000 CFU/ML MIXED GRAM POSITIVE... Complete Vitals/IOs Vital Signs Date Time Temp Pulse Resp B/P (MAP) Pulse Ox O2 Delivery O2 Flow Rate FiO2 03/28/17 20:53 03/28/17 16:00 97.9 100 18 99 Room Air Assessment & Plan Problem List: (1) Bipolar 1 disorder ICD Codes: F31.9 - Bipolar disorder, unspecified Status: Acute (2) Adjustment disorder with mixed disturbance of emotions and conduct ICD Codes: F43.25 - Adjustment disorder with mixed disturbance of emotions and conduct (3) Borderline intellectual functioning ICD Codes: R41.83 - Borderline intellectual functioning Assessment & Plan Continue current treatment plan Justification for Cont. Inpt. Patient would decompensate in a less restrictive setting Jonathan Moody DO Mar 30, 2017 12:20
[2017-03-30 17:22] VITALS: BP 147/94; PULSE 55; RESP 17; TEMP 97.7; O2SAT 99
[2017-03-30] MEDS: ATORVASTATIN 10 MG TAB PO SCH (21:35)
[2017-03-30] MEDS: diphenhydrAMINE HCL 50 MG CAP PO PRN (21:35)
[2017-03-31] MEDS: LEVOTHYROXINE SODIUM 50 MCG TAB PO SCH (05:40)
[2017-03-31 06:00] VITALS: BP 110/58; PULSE 100; RESP 16; TEMP 98.2; O2SAT 97
[2017-03-31] MEDS: ARIPiprazole 10 MG TAB PO SCH (08:28)
[2017-03-31] MEDS: LORazepam 1 MG TAB PO PRN (08:29)
[2017-03-31] MEDS: DIVALPROEX DR 500 MG TABEC PO SCH ×2 (08:29→20:24)
[2017-03-31] MEDS: NICOTINE 21 MG/24 HR PATCH T-DERMAL SCH (09:00)
[2017-03-31] MEDS: REMOVE OLD PATCH T-DERMAL SCH (09:00)
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
[2017-03-31 18:26] VITALS: BP 128/82; PULSE 116; RESP 16; TEMP 98.2; O2SAT 98
[2017-03-31] MEDS: ZOLPIDEM TARTRATE 5 MG TAB PO PRN (20:25)
[2017-03-31] MEDS: ATORVASTATIN 10 MG TAB PO SCH (20:25)
[2017-04-01 05:44] VITALS: BP 130/67; PULSE 105; RESP 18; TEMP 98; O2SAT 99
[2017-04-01] MEDS: LEVOTHYROXINE SODIUM 50 MCG TAB PO SCH (05:55)
[2017-04-01] MEDS: DIVALPROEX DR 500 MG TABEC PO SCH ×2 (07:37→21:11)
[2017-04-01] MEDS: LORazepam 1 MG TAB PO PRN (07:37)
[2017-04-01] MEDS: ARIPiprazole 15 MG TAB PO SCH (07:38)
[2017-04-01] MEDS: NICOTINE 21 MG/24 HR PATCH T-DERMAL SCH (09:00)
[2017-04-01] MEDS: REMOVE OLD PATCH T-DERMAL SCH (09:00)
--- NOTE | 2017-04-01 10:31 | PD.TTN ---
Patient Problems 1. Discharge planning 2. Medication compliance 3. Knowledge deficit 4. Lack of coping skills Progress Toward Goals Provider Present: Dr. Monica Spangler Provider Input: Pt medication regiment is being adjusted including titration of Abilify and addition of Ambien. Nurse(s) Present: Ling Ramos, MANJEET Nurse(s) Input: Pt has been screaming, crying and has been a disruptive behavioral problem on unit. She appears childlike, demanding and has been requiring additional medication to help her calm her behaviors. Psychiatric Counselors Present: JONNA Franco Psych Therapist Input: Pt appears childlike, demanding, labile, disruptive, intrusive and oriented. She appears with poor insight into condition and need for care. She accepts limited responsibilty for her behavior and struggles to regulate herself. Coping and emotional regulation skills appear limited at this time. She has been compliant with medication regiment. She has poor insight into a safe and effective discharge plan at this time. Group Spec/RT/OT/JOYCE Present: Don Ornelas OT Group Spec/RT/OT/JOYCE Input: Pt attends groups but is difficult to redirect and impulsive. Discharge Plan SMA Pt will likely be referred to an [facility] due to her struggles with stability on her own with also a possible referral to the [facility] if she does not improve. She would be linked with any necessary follow up services on outpatient basis. Documentation Scribe: JONNA Franco Jonathan LMHC Apr 01, 2017 10:30
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
[2017-04-01] MEDS ORDERED: PILL SPLITTER OTHER PRN (13:45)
[2017-04-01] MEDS ORDERED: FLUCONAZOLE 100 MG TAB PO ONE (14:00)
[2017-04-01] MEDS: levOCARNitine 10% ORAL SOLN 118 ML BTL PO SCH (16:40)
[2017-04-01 18:12] VITALS: BP 124/75; PULSE 110; RESP 18; TEMP 98.8; O2SAT 99
[2017-04-01] MEDS: ATORVASTATIN 10 MG TAB PO SCH (21:07)
[2017-04-01] MEDS: ZOLPIDEM TARTRATE 5 MG TAB PO PRN (21:09)
[2017-04-02 05:49] VITALS: BP 118/57; PULSE 106; RESP 18; TEMP 98.5; O2SAT 98
[2017-04-02] MEDS: LEVOTHYROXINE SODIUM 50 MCG TAB PO SCH (06:00)
[2017-04-02] MEDS: NICOTINE 21 MG/24 HR PATCH T-DERMAL SCH (09:00)
[2017-04-02] MEDS: REMOVE OLD PATCH T-DERMAL SCH (09:00)
[2017-04-02] MEDS: DIVALPROEX DR 500 MG TABEC PO SCH (09:00)
[2017-04-02] MEDS: ARIPiprazole 15 MG TAB PO SCH (09:00)
[2017-04-02] MEDS: levOCARNitine 10% ORAL SOLN 118 ML BTL PO SCH ×3 (09:00→18:00)
--- NOTE | 2017-04-02 09:59 | HHI.PYPN ---
Subjective Remarks Patient seen and examined with nurse. Chart reviewed. Case discussed with nursing staff. No behavioral issues overnight. On my examination today, the patient remains childlike. She is euthymic and calm, although this seems a little exaggerated in service of obtaining discharge. She continues to say that she wants to go stay with her boyfriend, although she has no way of contacting him presently as his phone is not working. No SI/HI. No side effects from medications. No physical complaints. Review of Systems ROS Limitations: Poor Historian Except as stated in HPI: all other systems reviewed are Neg Mental Status Examination Appearance: Appropriate Consciousness: Alert Orientation: Person, Place, Date/Time Motor Activity: Other (no abnormal motor movements noted) Speech: Unremarkable Language: Adequate Fund of Knowledge: Inadequate Attention and Concentration: Easily Distracted Mood: Other (calm) Affect: Euthymic (childlike) Thought Process & Associations: Other (perseverative on discharge) Thought Content: Appropriate Hallucination Type: None Delusion Type: None Suicidal Ideation: No Suicidal Plan: No Suicidal Intention: No Homicidal Ideation: No Homicidal Plan: No Homicidal Intention: No Insight: Poor Judgment: Poor Results Labs Item Value Date Time Valproic Acid (Depakene) Level 168 MCG/ML *H 04/02/17 0942 Labs reviewed. Depakote level remains significantly elevated, and this was drawn pre-dose. Vitals/IOs Vital Signs Date Time Temp Pulse Resp B/P (MAP) Pulse Ox O2 Delivery O2 Flow Rate FiO2 04/02/17 05:49 98.5 106 18 118/57 (77) 98 Assessment & Plan Problem List: (1) Adjustment disorder with mixed disturbance of emotions and conduct ICD Codes: F43.25 - Adjustment disorder with mixed disturbance of emotions and conduct (2) Borderline intellectual functioning ICD Codes: R41.83 - Borderline intellectual functioning (3) Cluster B personality traits (4) Polysubstance abuse ICD Codes: F19.10 - Other psychoactive substance abuse, uncomplicated Assessment & Plan Hold Depakote this evening and then taper dose starting tomorrow morning to 1000mg BID. Check an updated Depakote and ammonia level Friday morning. Continue to monitor on the inpatient unit. Continue other medications and care as ordered. Justification for Cont. Inpt. Med changes. Risk for decompensation in less restrictive environment. Discharge Planning Pending outcome of [place] tomorrow. Request HC Surrog/Guard Advoc?: Yes Ricky Spangler MD Apr 02, 2017 09:59
[2017-04-02 17:04] VITALS: BP 122/57; PULSE 99; RESP 18; TEMP 97.6; O2SAT 100
[2017-04-02] MEDS: ATORVASTATIN 10 MG TAB PO SCH (20:30)
[2017-04-02] MEDS: ZOLPIDEM TARTRATE 5 MG TAB PO PRN (20:33)
[2017-04-03] MEDS: LEVOTHYROXINE SODIUM 50 MCG TAB PO SCH (05:21)
[2017-04-03 05:40] VITALS: BP 118/68; PULSE 101; RESP 18; TEMP 98.2; O2SAT 99
[2017-04-03] MEDS: levOCARNitine 10% ORAL SOLN 118 ML BTL PO SCH ×3 (08:41→17:20)
[2017-04-03] MEDS: DIVALPROEX DR 500 MG TABEC PO SCH ×2 (08:41→20:54)
[2017-04-03] MEDS: ARIPiprazole 15 MG TAB PO SCH (08:41)
[2017-04-03] MEDS: NICOTINE 21 MG/24 HR PATCH T-DERMAL SCH (08:45)
[2017-04-03] MEDS: REMOVE OLD PATCH T-DERMAL SCH (08:45)
[2017-04-03] MEDS: LORazepam 1 MG TAB PO PRN ×2 (10:16→17:30)
--- NOTE | 2017-04-03 12:21 | HHI.PYPN ---
Subjective Remarks Patient seen and case discussed with nursing staff. Chart reviewed. Per nursing staff, no behavioral issues overnight. On my examination today, the patient remains childlike. Discharge focused. Patient was retained on the unit by the [place] act court clinical laboratory technician and was understandably distressed by this but was apparently able to maintain behavioral control per nursing staff. No side effects from medications. No physical complaints. Review of Systems Except as stated in HPI: all other systems reviewed are Neg Mental Status Examination Appearance: Appropriate Consciousness: Alert Orientation: Person, Place, Date/Time Motor Activity: Other (no motor abnormalities appreciated) Speech: Unremarkable Language: Adequate Fund of Knowledge: Inadequate Attention and Concentration: Easily Distracted Mood: Anxious Affect: Anxious Thought Process & Associations: Other (remains perseverative on discharge) Thought Content: Appropriate Hallucination Type: None Delusion Type: None Suicidal Ideation: No Suicidal Plan: No Suicidal Intention: No Homicidal Ideation: No Homicidal Plan: No Homicidal Intention: No Insight: Poor Judgment: Poor Results Labs Date/Time Source Procedure Growth Status 03/28/17 16:30 Urine Clean Catch Urine Culture - Final 50-100,000 CFU/ML MIXED GRAM POSITIVE... Complete Labs reviewed. Vitals/IOs Vital Signs Date Time Temp Pulse Resp B/P (MAP) Pulse Ox O2 Delivery O2 Flow Rate FiO2 04/03/17 05:40 98.2 101 18 118/68 (85) 99 Assessment & Plan Problem List: (1) Adjustment disorder with mixed disturbance of emotions and conduct ICD Codes: F43.25 - Adjustment disorder with mixed disturbance of emotions and conduct (2) Borderline intellectual functioning ICD Codes: R41.83 - Borderline intellectual functioning (3) Cluster B personality traits (4) Polysubstance abuse ICD Codes: F19.10 - Other psychoactive substance abuse, uncomplicated Assessment & Plan Continue Depakote and Abilify as ordered. Plan to check a Depakote and ammonia level tomorrow morning. Continue to monitor on the high acuity unit. Continue other medications and care as ordered. Justification for Cont. Inpt. High risk for decompensation in less restrictive environment. Discharge Planning Pending safe discharge plan. Case d/w counselor. Request HC Surrog/Guard Advoc?: Yes Ricky Spangler MD Apr 03, 2017 12:21
[2017-04-03] MEDS: ATORVASTATIN 10 MG TAB PO SCH (20:53)
[2017-04-03] MEDS: ZOLPIDEM TARTRATE 5 MG TAB PO PRN (20:55)
[2017-04-04] MEDS: LEVOTHYROXINE SODIUM 50 MCG TAB PO SCH (05:06)
[2017-04-04 05:45] VITALS: BP 127/64; PULSE 108; RESP 18; TEMP 98.4; O2SAT 99
[2017-04-04] MEDS: ARIPiprazole 15 MG TAB PO SCH (08:40)
[2017-04-04] MEDS: DIVALPROEX DR 500 MG TABEC PO SCH ×2 (08:40→20:37)
[2017-04-04] MEDS: REMOVE OLD PATCH T-DERMAL SCH (08:40)
[2017-04-04] MEDS: NICOTINE 21 MG/24 HR PATCH T-DERMAL SCH (08:40)
[2017-04-04] MEDS: levOCARNitine 10% ORAL SOLN 118 ML BTL PO SCH ×3 (08:40→17:04)
--- NOTE | 2017-04-04 10:12 | HHI.PYPN ---
Subjective Remarks Patient seen and examined with counselor. Chart reviewed. Case discussed with nursing staff and in treatment team. Per nursing staff, patient was incontinent of urine overnight. On my exam, patient is childlike. She wonders if we can [facility] [place] [facility] or perhaps to the [facility]. We discuss discharge options including [facility], and patient seems receptive. No mood or psychotic symptoms. We support patient's recent good behavior. No side effects from medications. No physical complaints. Review of Systems ROS Limitations: Poor Historian Except as stated in HPI: all other systems reviewed are Neg Mental Status Examination Appearance: Appropriate Consciousness: Alert Orientation: Person, Place, Date/Time Motor Activity: Other (no abnormal motor movements noted) Speech: Unremarkable Language: Adequate Fund of Knowledge: Inadequate Attention and Concentration: Easily Distracted Mood: Appropriate Affect: Other (childlike but euthymic) Thought Process & Associations: Other (remains perseverative on discharge) Thought Content: Appropriate Hallucination Type: None Delusion Type: None Suicidal Ideation: No Suicidal Plan: No Suicidal Intention: No Homicidal Ideation: No Homicidal Plan: No Homicidal Intention: No Insight: Poor Judgment: Poor Results Labs Date/Time Source Procedure Growth Status 03/28/17 16:30 Urine Clean Catch Urine Culture - Final 50-100,000 CFU/ML MIXED GRAM POSITIVE... Complete Labs reviewed. Depakote and ammonia level ordered for this morning are pending. Vitals/IOs Vital Signs Date Time Temp Pulse Resp B/P (MAP) Pulse Ox O2 Delivery O2 Flow Rate FiO2 04/04/17 05:45 98.4 108 18 127/64 (85) 99 Intake and Output 04/04/17 04/04/17 04/05/17 08:00 16:00 00:00 Intake Total 360 ml Balance 360 ml Assessment & Plan Problem List: (1) Adjustment disorder with mixed disturbance of emotions and conduct ICD Codes: F43.25 - Adjustment disorder with mixed disturbance of emotions and conduct (2) Borderline intellectual functioning ICD Codes: R41.83 - Borderline intellectual functioning (3) Cluster B personality traits (4) Polysubstance abuse ICD Codes: F19.10 - Other psychoactive substance abuse, uncomplicated Assessment & Plan Continue Depakote and Abilify as ordered. Follow up VPA and ammonia levels. Patient somewhat resistant to Carnitor liquid, and psychoeducation provided regarding its purpose. Pharmacy does not stock Carnitor tabs, but we can order these on discharge. Check a urinalysis. Monitor for any ictal activity especially since Depakote level was decreased somewhat. Seizure precautions remain in place. Continue to monitor on the inpatient unit. Continue other medications and care as ordered. Justification for Cont. Inpt. Risk for decompensation in less restrictive environment. Discharge Planning Case discussed with counselor. Placement. Possible discharge to [facility] after the weekend. Request HC Surrog/Guard Advoc?: Yes Ricky Spangler MD Apr 04, 2017 10:12
--- NOTE | 2017-04-04 11:10 | PD.TTN ---
Patient Problems 1. Discharge planning 2. Medication compliance 3. Knowledge deficit 4. Lack of coping skills Progress Toward Goals Provider Present: Dr. Monica Spangler Provider Input: Pt medication regiment is being adjusted including titration of Abilify and addition of Ambien. 04/04- Pt Abilify is being titrated and her Depakote is being tapered. She is being evaluated for placement in an GROUP HOME. Nurse(s) Present: Ling Ramos RN Nurse(s) Input: Pt has been screaming, crying and has been a disruptive behavioral problem on unit. She appears childlike, demanding and has been requiring additional medication to help her calm her behaviors. 04/04- Tatiana Cortez RN Pt appears labile, intrusive, attention seeking, childlike and medication compliant. Psychiatric Counselors Present: JONNA Franco Psych Therapist Input: Pt appears childlike, demanding, labile, disruptive, intrusive and oriented. She appears with poor insight into condition and need for care. She accepts limited responsibilty for her behavior and struggles to regulate herself. Coping and emotional regulation skills appear limited at this time. She has been compliant with medication regiment. She has poor insight into a safe and effective discharge plan at this time. 04/04- Pt appears childlike, impulsive, labile, attention seeking, demanding, repetitive and cooperative. She remains with poor insight into condition and need for care. She has become more receptive to plan of placement in an GROUP HOME though she does not recognize that she cannot care for herself or potentially hazardous situations in the community for her. She is compliant with medication regiment. Coping and emotional regulation skills appear limited at this time. Group Spec/RT/OT/JOYCE Present: Don Ornelas OT, Adam Lampert, COTA Group Spec/RT/OT/JOYCE Input: Pt attends groups but is difficult to redirect and impulsive. 04/04- ISIAH Sorenson Pt attends most groups and appears childlike/needy. Discharge Plan SMA Pt will likely be referred to an GROUP HOME due to her struggles with stability on her own with also a possible referral to [facility] if she does not improve. She would be linked with any necessary follow up services on outpatient basis. Documentation Scribe: JONNA Franco Jonathan LMHC Apr 04, 2017 11:10
[2017-04-04] MEDS: LORazepam 1 MG TAB PO PRN (15:32)
[2017-04-04 17:41] VITALS: BP 116/75; PULSE 113; RESP 18; TEMP 98; O2SAT 98
[2017-04-04] MEDS: ATORVASTATIN 10 MG TAB PO SCH (20:24)
[2017-04-04] MEDS: ZOLPIDEM TARTRATE 5 MG TAB PO PRN (20:25)
[2017-04-05] MEDS: LEVOTHYROXINE SODIUM 50 MCG TAB PO SCH (05:50)
[2017-04-05 06:01] VITALS: BP 110/76; PULSE 108; RESP 16; TEMP 98; O2SAT 98
[2017-04-05] MEDS: REMOVE OLD PATCH T-DERMAL SCH (08:35)
[2017-04-05] MEDS: NICOTINE 21 MG/24 HR PATCH T-DERMAL SCH (08:35)
[2017-04-05] MEDS: levOCARNitine 10% ORAL SOLN 118 ML BTL PO SCH ×3 (08:36→17:42)
[2017-04-05] MEDS: DIVALPROEX DR 500 MG TABEC PO SCH (08:36)
[2017-04-05] MEDS: ARIPiprazole 15 MG TAB PO SCH (08:37)
--- NOTE | 2017-04-05 13:56 | HHI.PYPN ---
Subjective Remarks Pt seen and discussed with staff. VPA level was 148 but drawn one hour earlier than scheduled time for trough level. Depakote has been held by RN or 24 hours. No signs or symptoms of toxicity. She has been compliant with care and treatment. No aggression or agitation on unit. No SI/HI. . Mental Status Examination Appearance: Appropriate Consciousness: Alert Orientation: Person, Place, Date/Time Motor Activity: Other (no abnormal motor movements noted) Speech: Unremarkable Language: Adequate Fund of Knowledge: Inadequate Attention and Concentration: Easily Distracted Mood: Appropriate Affect: Other (childlike but euthymic) Thought Process & Associations: Other (remains perseverative on discharge) Thought Content: Appropriate Hallucination Type: None Delusion Type: None Suicidal Ideation: No Suicidal Plan: No Suicidal Intention: No Homicidal Ideation: No Homicidal Plan: No Homicidal Intention: No Insight: Poor Judgment: Poor Results Labs Test 04/04/17 19:44 Valproic Acid (Depakene) Level 148 MCG/ML Date/Time Source Procedure Growth Status 03/28/17 16:30 Urine Clean Catch Urine Culture - Final 50-100,000 CFU/ML MIXED GRAM POSITIVE... Complete Vitals/IOs Vital Signs Date Time Temp Pulse Resp B/P (MAP) Pulse Ox O2 Delivery O2 Flow Rate FiO2 04/05/17 06:01 98.0 108 16 110/76 (87) 98 Assessment & Plan Problem List: (1) Adjustment disorder with mixed disturbance of emotions and conduct ICD Codes: F43.25 - Adjustment disorder with mixed disturbance of emotions and conduct (2) Borderline intellectual functioning ICD Codes: R41.83 - Borderline intellectual functioning (3) Cluster B personality traits (4) Polysubstance abuse ICD Codes: F19.10 - Other psychoactive substance abuse, uncomplicated Assessment & Plan Depakote has been held over 24 hours. Will lower dose to 750mg BID and recheck trough level, as medication is prescribed for seizure disorder. Continue current psychiatric medications. Estimated LOS: days Justification for Cont. Inpt. medication changes requiring monitoring Request HC Surrog/Guard Advoc?: Yes Liya Tolbert MD Apr 05, 2017 13:56
[2017-04-05 17:28] VITALS: BP 117/74; PULSE 111; RESP 20; TEMP 98.5; O2SAT 100
[2017-04-05] MEDS: ATORVASTATIN 10 MG TAB PO SCH (20:12)
[2017-04-05] MEDS: ZOLPIDEM TARTRATE 5 MG TAB PO PRN (20:12)
[2017-04-05] MEDS ORDERED: DIVALPROEX SODIUM E.R. 250 MG TAB PO SCH (21:00)
[2017-04-05] MEDS: DIVALPROEX SODIUM DELAYED RELEASE 250 MG TAB PO SCH (21:09)
[2017-04-06] MEDS: LEVOTHYROXINE SODIUM 50 MCG TAB PO SCH (05:46)
[2017-04-06 06:01] VITALS: BP 137/76; PULSE 83; RESP 17; TEMP 97.1; O2SAT 100
[2017-04-06] MEDS: ARIPiprazole 15 MG TAB PO SCH (08:58)
[2017-04-06] MEDS: DIVALPROEX SODIUM DELAYED RELEASE 250 MG TAB PO SCH ×2 (08:59→20:26)
[2017-04-06] MEDS: levOCARNitine 10% ORAL SOLN 118 ML BTL PO SCH ×3 (08:59→16:56)
[2017-04-06] MEDS: REMOVE OLD PATCH T-DERMAL SCH (08:59)
[2017-04-06] MEDS: NICOTINE 21 MG/24 HR PATCH T-DERMAL SCH (09:00)
--- NOTE | 2017-04-06 13:03 | HHI.PYPN ---
Subjective Remarks Pt seen and discussed with staff. She has been tearful and crying on unit today. She was agitated last night and required ativan. She is compliant with medications. No side effects. No signs or symptoms of depakote toxicty. No SI/ HI Mental Status Examination Appearance: Appropriate Consciousness: Alert Orientation: Person, Place, Date/Time Motor Activity: Other (no abnormal motor movements noted) Speech: Unremarkable Language: Adequate Fund of Knowledge: Inadequate Attention and Concentration: Easily Distracted Mood: Appropriate Affect: Other (childlike but euthymic) Thought Process & Associations: Other (remains perseverative on discharge) Thought Content: Appropriate Hallucination Type: None Delusion Type: None Suicidal Ideation: No Suicidal Plan: No Suicidal Intention: No Homicidal Ideation: No Homicidal Plan: No Homicidal Intention: No Insight: Poor Judgment: Poor Results Labs Date/Time Source Procedure Growth Status 03/28/17 16:30 Urine Clean Catch Urine Culture - Final 50-100,000 CFU/ML MIXED GRAM POSITIVE... Complete Vitals/IOs Vital Signs Date Time Temp Pulse Resp B/P (MAP) Pulse Ox O2 Delivery O2 Flow Rate FiO2 04/06/17 06:01 Assessment & Plan Problem List: (1) Adjustment disorder with mixed disturbance of emotions and conduct ICD Codes: F43.25 - Adjustment disorder with mixed disturbance of emotions and conduct (2) Borderline intellectual functioning ICD Codes: R41.83 - Borderline intellectual functioning (3) Cluster B personality traits (4) Polysubstance abuse ICD Codes: F19.10 - Other psychoactive substance abuse, uncomplicated Assessment & Plan Continue current tx plan Estimated LOS: days Justification for Cont. Inpt. risk of decompensation Request HC Surrog/Guard Advoc?: Yes Liya Tolbert MD Apr 06, 2017 13:03
[2017-04-06] MEDS: ZOLPIDEM TARTRATE 5 MG TAB PO PRN (20:25)
[2017-04-06] MEDS: ATORVASTATIN 10 MG TAB PO SCH (20:26)
[2017-04-06] MEDS: LORazepam 1 MG TAB PO PRN (20:28)
[2017-04-07] MEDS: LEVOTHYROXINE SODIUM 50 MCG TAB PO SCH (06:31)
[2017-04-07 06:37] VITALS: BP 113/67; PULSE 100; RESP 20; TEMP 97.1; O2SAT 96
[2017-04-07] MEDS: ARIPiprazole 15 MG TAB PO SCH (07:55)
[2017-04-07] MEDS: NICOTINE 21 MG/24 HR PATCH T-DERMAL SCH (07:56)
[2017-04-07] MEDS: levOCARNitine 10% ORAL SOLN 118 ML BTL PO SCH ×3 (07:56→17:22)
[2017-04-07] MEDS: DIVALPROEX SODIUM DELAYED RELEASE 250 MG TAB PO SCH ×2 (07:56→20:56)
[2017-04-07] MEDS: REMOVE OLD PATCH T-DERMAL SCH (07:56)
[2017-04-07] MEDS: LORazepam 1 MG TAB PO PRN ×2 (08:01→13:06)
--- NOTE | 2017-04-07 11:48 | HHI.PYPN ---
Subjective Remarks Patient seen and examined with nurse. Chart reviewed. Case discussed with nursing staff who reports patient remains quite childlike but has not been acting out. She reportedly slept well overnight. Case discussed with counselor who has spoken with the patient's outpatient [facility] support who has apparently found placement for the patient that we'll be available by the middle of the week. On my examination today, the patient remains quite childlike. She denies any SI or HI. She denies any AVH. She remains discharge focused. Denies side effects from medications. No physical complaints. Review of Systems ROS Limitations: Poor Historian Except as stated in HPI: all other systems reviewed are Neg Mental Status Examination Appearance: Appropriate Consciousness: Alert Orientation: Person, Place, Date/Time Motor Activity: Other (no motoric abnormalities noted. No ictal activity noted.) Speech: Unremarkable Language: Adequate Fund of Knowledge: Inadequate Attention and Concentration: Easily Distracted Mood: Appropriate Affect: Other (remains childlike, a little anxious about discharge) Thought Process & Associations: Other (remains perseverative on discharge) Thought Content: Appropriate Hallucination Type: None Delusion Type: None Suicidal Ideation: No Suicidal Plan: No Suicidal Intention: No Homicidal Ideation: No Homicidal Plan: No Homicidal Intention: No Insight: Poor Judgment: Poor Results Labs Date/Time Source Procedure Growth Status 03/28/17 16:30 Urine Clean Catch Urine Culture - Final 50-100,000 CFU/ML MIXED GRAM POSITIVE... Complete Labs reviewed. Vitals/IOs Vital Signs Date Time Temp Pulse Resp B/P (MAP) Pulse Ox O2 Delivery O2 Flow Rate FiO2 04/07/17 06:37 97.1 100 20 113/67 (82) 96 Assessment & Plan Problem List: (1) Adjustment disorder with mixed disturbance of emotions and conduct ICD Codes: F43.25 - Adjustment disorder with mixed disturbance of emotions and conduct (2) Borderline intellectual functioning ICD Codes: R41.83 - Borderline intellectual functioning (3) Cluster B personality traits (4) Polysubstance abuse ICD Codes: F19.10 - Other psychoactive substance abuse, uncomplicated Assessment & Plan Continue Depakote and Abilify as ordered. Check an updated Depakote level tomorrow morning to ensure that this is downtrending. Continue to monitor on the inpatient unit. Continue other medications and care as ordered. Justification for Cont. Inpt. Risk for decompensation in less restrictive environment. Discharge Planning Hopeful for discharge to new placement by the middle of the week. Case discussed with counselor. Request HC Surrog/Guard Advoc?: Yes Ricky Spangler MD Apr 07, 2017 11:48
[2017-04-07 17:36] VITALS: BP 119/65; PULSE 108; RESP 20; O2SAT 97
[2017-04-07] MEDS: ZOLPIDEM TARTRATE 5 MG TAB PO PRN (20:55)
[2017-04-07] MEDS: ATORVASTATIN 10 MG TAB PO SCH (20:56)
[2017-04-08] MEDS: LEVOTHYROXINE SODIUM 50 MCG TAB PO SCH (05:32)
[2017-04-08 05:39] VITALS: BP 94/46; PULSE 72; RESP 17; TEMP 98.5; O2SAT 97
[2017-04-08] MEDS: ARIPiprazole 15 MG TAB PO SCH (08:28)
[2017-04-08] MEDS: levOCARNitine 10% ORAL SOLN 118 ML BTL PO SCH ×2 (08:28→12:39)
[2017-04-08] MEDS: DIVALPROEX SODIUM DELAYED RELEASE 250 MG TAB PO SCH (08:28)
[2017-04-08] MEDS: NICOTINE 21 MG/24 HR PATCH T-DERMAL SCH (08:28)
[2017-04-08] MEDS: REMOVE OLD PATCH T-DERMAL SCH (08:32)
[2017-04-08] MEDS ORDERED: LORA-474 PO (10:49)
[2017-04-08] MEDS ORDERED: LEVO.05 PO (11:32)
[2017-04-08] MEDS ORDERED: Albuterol Hfa Inh INH (11:32)
[2017-04-08] MEDS ORDERED: LIPI10TA PO (11:32)
[2017-04-08] MEDS ORDERED: ARIP1TAB13 PO (11:32)
[2017-04-08] MEDS ORDERED: CARN330T PO (11:32)
[2017-04-08] MEDS ORDERED: DIVA250T PO (11:32)
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
[2017-04-08] MEDS: LORazepam 1 MG TAB PO PRN (12:34)
--- NOTE | 2017-04-08 14:57 | PD.TTN ---
Patient Problems 1. Discharge planning 2. Medication compliance 3. Knowledge deficit 4. Lack of coping skills Progress Toward Goals Provider Present: Dr. Monica Spangler Provider Input: 04-07-17 - Patient will be discharged when [facility] arranges for placement. Pt medication regiment is being adjusted including titration of Abilify and addition of Ambien. 04/04- Pt Abilify is being titrated and her Depakote is being tapered. She is being evaluated for placement in an [facility]. Nurse(s) Present: Ling Ramos RN Nurse(s) Input: Pt has been screaming, crying and has been a disruptive behavioral problem on unit. She appears childlike, demanding and has been requiring additional medication to help her calm her behaviors. 04/04- Tatiana Cortez RN Pt appears labile, intrusive, attention seeking, childlike and medication compliant. Psychiatric Counselors Present: Evangelista Nguyen [facility], Jannette Mckee [facility] Psych Therapist Input: 04-07-17 -Counselor reported that I will speak to patient's [facility] manager rn case in an effort to expidite discharge. Pt appears childlike, demanding, labile, disruptive, intrusive and oriented. She appears with poor insight into condition and need for care. She accepts limited responsibilty for her behavior and struggles to regulate herself. Coping and emotional regulation skills appear limited at this time. She has been compliant with medication regiment. She has poor insight into a safe and effective discharge plan at this time. 04/04- Pt appears childlike, impulsive, labile, attention seeking, demanding, repetitive and cooperative. She remains with poor insight into condition and need for care. She has become more receptive to plan of placement in an [facility] though she does not recognize that she cannot care for herself or potentially hazardous situations in the community for her. She is compliant with medication regiment. Coping and emotional regulation skills appear limited at this time. Group Spec/RT/OT/JOYCE Present: Don Ornelas OT, ISIAH Sorenson Group Spec/RT/OT/JOYCE Input: 04-07-17 - Patient attends groups with good participation. Pt attends groups but is difficult to redirect and impulsive. 04/04- ISIAH Sorenson Pt attends most groups and appears childlike/needy. Discharge Plan SMA Pt will likely be referred to an [facility] due to her struggles with stability on her own with also a possible referral to the [facility] if she does not improve. She would be linked with any necessary follow up services on outpatient basis. Documentation Scribe: Evangelista Nguyen, JONNA, Jannette Mckee [facility] Date Resolved: Apr 08, 2017 Jannette Mckee [facility] Apr 08, 2017 14:57
== END 2017-04-08 12:45 | DRG 882 ==
LOC: NEPJ 11:02 → NEDA 16:06 → H270 20:56
PROVIDERS: ADMIT Psychiatry & Neurology Psychiatry; ATTEND Psychiatry & Neurology Psychiatry
DX: F43.25 Adjustment disorder with mixed disturbance of emotions and conduct (principal); E72.20 Disorder of urea cycle metabolism, unspecified; Z78.1 Physical restraint status; G40.909 Epilepsy, unspecified, not intractable, without status epilepticus; F17.210 Nicotine dependence, cigarettes, uncomplicated; E07.9 Disorder of thyroid, unspecified; B37.3 Candidiasis of vulva and vagina; F31.9 Bipolar disorder, unspecified; R41.83 Borderline intellectual functioning; Z91.19 Patient's noncompliance with other medical treatment and regimen; F19.10 Other psychoactive substance abuse, uncomplicated; R45.87 Impulsiveness; G47.00 Insomnia, unspecified
CPT/HCPCS: 80053; 80164; 80307; 81001; 82140; 84443; 84703; 85025; 87086; 96372; J1200; J1630; J2060; J3486; Q0163

== ENCOUNTER 2017-04-10 17:56 | Inpatient (IN) | payer OTHER ==
[~2017-04-10] VITALS: Ht 172.7 cm; Wt 104.1 kg
[~2017-04-10 17:56] MED LIST changes: +ARIP1TAB13 PO; +Albuterol Hfa Inh INH; +CARN330T PO; +DIVA250T PO; -DIVA500T PO; +LEVO.05 PO; -LEVO50TA4 PO; +LORA-474 PO; -QUET1TAB10 PO; -SERT-132 PO; -VENTAER INH
[2017-04-10 18:03] VITALS: BP 142/81; PULSE 101; RESP 16; TEMP 98.2; O2SAT 99
[2017-04-10 18:39] VITALS: BP 126/71; PULSE 94; RESP 18; TEMP 97.9; O2SAT 97
[2017-04-10 18:47] LABS: AUTOMATED NEUTROPHIL # 3.4 TH/MM3 (1.8-7.7); BASOPHIL % 0.7 % (0.0-2.0); BLOOD, URINE NEG (NEG); COMMENT (UR) CULT NOT INDICATED; CULTURE IF INDICATED CULT NOT INDICATED; EOSINOPHIL # 0.1 TH/MM3 (0-0.4); EOSINOPHIL % 1.4 % (0.0-4.0); GLUCOSE,URINE NEG (NEG); HEMATOCRIT 41.4 % (35.0-46.0); HEMO FLAGS DIFF FINAL; KETONE, URINE NEG (NEG); LYMPH % 35.7 % (9.0-44.0); LYMPHOCYTE # 2.3 TH/MM3 (1.0-4.8); MEAN CELL VOLUME 95.3 FL (80.0-100.0); MEAN CORPUSCULAR HEMOGLOBIN 33.2 PG (27.0-34.0); MEAN CORPUSCULAR HGB CONC 34.9 % (32.0-36.0); MUCUS URINE FEW /lpf (OCC); NEUT % 53.2 % (16.0-70.0); NITRITE,URINE NEG (NEG); PLATELET COUNT 206 TH/MM3 (150-450); RED BLOOD COUNT 4.34 MIL/MM3 (4.00-5.30); RED CELL DISTRIBUTION WIDTH 13.6 % (11.6-17.2); SQUAMOUS EPITHELIAL CELL URINE 3 /hpf (0-5); URINE COLOR YELLOW (YELLW/STRAW); WHITE BLOOD COUNT 6.3 TH/MM3 (4.0-11.0)
[2017-04-10 19:02] LABS: ALT (GPT) 17 U/L (10-53)
[2017-04-10 19:04] LABS: ALKALINE PHOSPHATASE 67 U/L (45-117); TOTAL BILIRUBIN ADULT 0.2 MG/DL (0.2-1.0)
[2017-04-10 19:09] LABS: ANION GAP 6 MEQ/L (5-15); AST (GOT) 21 U/L (15-37); BICARBONATE 22.8 MEQ/L (21.0-32.0); BLOOD UREA NITROGEN 8 MG/DL (7-18); CHLORIDE 110 MEQ/L (98-107); GLOMERULAR FILTRATION RATE 108 ML/MIN (>89); POTASSIUM 3.8 MEQ/L (3.5-5.1); SODIUM (NA) 139 MEQ/L (136-145)
[2017-04-10 19:10] LABS: ACETAMINOPHEN LESS THAN 2.0 MCG/ML (10.0-30.0); ALCOHOL LESS THAN 3 MG/DL (0-5)
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
[2017-04-10] MEDS: ARIPiprazole 15 MG TAB PO SCH (21:00)
[2017-04-10] MEDS: DIVALPROEX SODIUM DELAYED RELEASE 250 MG TAB PO SCH (21:00)
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
[2017-04-10 22:00] VITALS: BP 100/61; PULSE 75; RESP 15; TEMP 96.5; O2SAT 99
[2017-04-11 02:00] VITALS: BP 101/58; PULSE 78; RESP 15; TEMP 99.3; O2SAT 98
[2017-04-11 06:19] VITALS: BP 122/76; PULSE 92; RESP 18; TEMP 97.3; O2SAT 99
[2017-04-11 10:22] VITALS: BP 136/69; PULSE 106; RESP 18; O2SAT 98
[2017-04-11] MEDS ORDERED: diphenhydrAMINE HCL 50 MG/ML VIAL ONE (10:22)
[2017-04-11] MEDS ORDERED: ZIPRASIDONE MESYLATE 20 MG VIAL IM ONE ×2 (10:22→11:30)
[2017-04-11] MEDS ORDERED: ALUMINUM/MAGNESIUM/SIMETH 30 ML CUP PO PRN (10:30)
[2017-04-11] MEDS ORDERED: LORazepam 1 MG TAB PO PRN (10:30)
[2017-04-11] MEDS ORDERED: MAGNESIUM HYDROXIDE SUSP 30 ML CUP PO PRN (10:30)
[2017-04-11] MEDS ORDERED: LORazepam 2 MG/ML VIAL IM PRN (10:30)
[2017-04-11] MEDS ORDERED: ACETAMINOPHEN 325 MG TAB PO PRN (10:30)
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
[2017-04-11] MEDS ORDERED: diphenhydrAMINE HCL 50 MG/ML VIAL IM ONE (11:30)
[2017-04-11 14:52] VITALS: BP 121/77; PULSE 98; RESP 17; TEMP 98.1; O2SAT 98
[2017-04-11] MEDS: ARIPiprazole 15 MG TAB PO SCH (17:37)
[2017-04-11] MEDS: DIVALPROEX SODIUM DELAYED RELEASE 250 MG TAB PO SCH ×2 (17:38→20:25)
[2017-04-11 18:00] VITALS: BP 116/63; PULSE 95; RESP 18; TEMP 98.1; O2SAT 100
[2017-04-11] MEDS: traZODone HCL 50 MG TAB PO PRN (20:25)
[2017-04-12 05:58] VITALS: BP 104/56; PULSE 94; RESP 18; TEMP 98.8; O2SAT 97
[2017-04-12] MEDS: ARIPiprazole 15 MG TAB PO SCH (07:36)
[2017-04-12] MEDS: DIVALPROEX SODIUM DELAYED RELEASE 250 MG TAB PO SCH ×2 (07:36→20:07)
[2017-04-12 10:02] LABS: AUTOMATED NEUTROPHIL # 4.3 TH/MM3 (1.8-7.7); BASOPHIL % 0.6 % (0.0-2.0); EOSINOPHIL # 0.1 TH/MM3 (0-0.4); EOSINOPHIL % 0.8 % (0.0-4.0); HEMO FLAGS DIFF FINAL; LYMPH % 27.3 % (9.0-44.0); LYMPHOCYTE # 1.8 TH/MM3 (1.0-4.8); MEAN CORPUSCULAR HEMOGLOBIN 33.1 PG (27.0-34.0); MEAN CORPUSCULAR HGB CONC 34.8 % (32.0-36.0); MONO % 6.3 % (0.0-8.0); PLATELET COUNT 214 TH/MM3 (150-450); RED BLOOD COUNT 4.32 MIL/MM3 (4.00-5.30); RED CELL DISTRIBUTION WIDTH 13.6 % (11.6-17.2); WHITE BLOOD COUNT 6.6 TH/MM3 (4.0-11.0)
[2017-04-12] MEDS: hydrOXYzine HCL 50 MG TAB PO PRN ×2 (10:27→20:13)
[2017-04-12 10:35] LABS: ANION GAP 9 MEQ/L (5-15); AST (GOT) 11 U/L (15-37); BICARBONATE 23.6 MEQ/L (21.0-32.0); BLOOD UREA NITROGEN 16 MG/DL (7-18); CHLORIDE 104 MEQ/L (98-107); GLOMERULAR FILTRATION RATE 78 ML/MIN (>89); POTASSIUM 3.7 MEQ/L (3.5-5.1); SODIUM (NA) 137 MEQ/L (136-145)
[2017-04-12 10:37] LABS: ALT (GPT) 15 U/L (10-53)
[2017-04-12] MEDS ORDERED: HALOPERIDOL LACTATE 5 MG/ML AMP ONE (10:37)
[2017-04-12 11:02] LABS: ALKALINE PHOSPHATASE 64 U/L (45-117); HDL CHOLESTEROL 37.6 MG/DL (40.0-60.0); LDL CHOLESTEROL 100 MG/DL (0-99); TOTAL BILIRUBIN ADULT 0.4 MG/DL (0.2-1.0)
[2017-04-12 12:44] LABS: HEMOGLOBIN A1a 1.4 %; HEMOGLOBIN A1b 0.7 %; HEMOGLOBIN Ao 86.6 %; HEMOGLOBIN F 1.1 %; HEMOGLOBIN LA1C 1.9 %; HEMOGLOBIN P3 3.3 %
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
[2017-04-12 18:00] VITALS: BP 109/62; PULSE 54; RESP 18; TEMP 97.9; O2SAT 100
[2017-04-12 18:11] VITALS: BP 113/63; PULSE 88; RESP 20; O2SAT 99
[2017-04-12] MEDS: traZODone HCL 50 MG TAB PO PRN (20:08)
[2017-04-13 06:12] VITALS: BP 109/55; PULSE 95; RESP 17; TEMP 98.7; O2SAT 100
[2017-04-13] MEDS: DIVALPROEX SODIUM DELAYED RELEASE 250 MG TAB PO SCH ×2 (09:09→19:59)
[2017-04-13] MEDS: ARIPiprazole 10 MG TAB PO SCH (09:10)
[2017-04-13] MEDS: hydrOXYzine HCL 50 MG TAB PO PRN ×2 (09:10→19:58)
--- NOTE | 2017-04-13 13:07 | EKG ---
Date Performed: 04/12/2017 Time Performed: 15:08:28 PTAGE: 21 years EKG: SINUS TACHYCARDIA WITHIN NORMAL LIMITS Since previous tracing, no significant change noted ABNORMAL RHYTHM ECG PREVIOUS TRACING : 03/18/2017 21.44 DOCTOR: Graeme Callejas Interpretating Date/Time 04/13/2017 13:06:05
--- NOTE | 2017-04-13 16:33 | HHI.PYPN ---
Subjective Remarks Patient was seen and case discussed with nursing. Patient's behavior is markedly improved. She has not needed any ETO's today. No destructive behavior. No aggressive outbursts. Pleasant and cooperative with exam. She remains perseverative on discharge to her home home. Tolerating medications well Mental Status Examination Appearance: Appropriate (dressed in [facility]) Consciousness: Alert Orientation: x4 Motor Activity: Normal gait, Other (frequently shakes her hands in stereotypical wrist medical movement) Speech: Rapid Language: Adequate (childlike) Fund of Knowledge: Poor Attention and Concentration: Inadequate Memory: Impaired Mood: Appropriate, Good Affect: Labile Thought Process & Associations: Tangential Thought Content: Bizarre thinking Hallucination Type: None Delusion Type: None Suicidal Ideation: No Suicidal Plan: No Suicidal Intention: No Homicidal Ideation: No Homicidal Plan: No Homicidal Intention: No Insight: Poor Judgment: Impulsive Results Vitals/IOs Vital Signs Date Time Temp Pulse Resp B/P (MAP) Pulse Ox O2 Delivery O2 Flow Rate FiO2 04/13/17 06:12 98.7 95 17 109/55 (73) 100 04/11/17 06:19 Room Air Assessment & Plan Problem List: (1) Intermittent explosive disorder ICD Codes: F63.81 - Intermittent explosive disorder Assessment & Plan Continue current treatment plan Justification for Cont. Inpt. Patient would decompensate in a less restrictive setting Jonathan Moody DO Apr 13, 2017 16:33
[2017-04-13 17:14] VITALS: BP 115/67; PULSE 99; RESP 18; TEMP 98.4; O2SAT 98
[2017-04-13] MEDS: traZODone HCL 50 MG TAB PO PRN (19:58)
[2017-04-14 05:37] VITALS: BP 115/57; PULSE 91; RESP 17; TEMP 98.1; O2SAT 97
[2017-04-14] MEDS ORDERED: PATIENT OWN MEDICATION IM ONE ×2 (08:30→11:00)
[2017-04-14] MEDS ORDERED: ARIP10IN IM (08:35)
[2017-04-14] MEDS ORDERED: ARIP1TAB13 PO (08:35)
[2017-04-14] MEDS ORDERED: CARN330T PO (08:35)
[2017-04-14] MEDS ORDERED: DIVA250T PO (08:35)
--- NOTE | 2017-04-14 08:35 | HHI.DS ---
Psychiatry Discharge Summary Inpatient Psychiatric care?: Yes Advance Directive: No Reason Not Provided: combative Mental Health AdvanceDirective: No Health Care Proxy: No Admission Admission Date Apr 11, 2017 at 10:27 Admission Diagnosis: (1) Intermittent explosive disorder ICD Code: F63.81 - Intermittent explosive disorder Brief History 21-year-old female with borderline intellectual functioning and history of multiple psychiatric diagnoses including bipolar disorder, being admitted under a Snyder act initiated by this physician for grossly agitated and threatening behavior. This physician reviewed the Snyder act lift form and note written by Linda Mims, nurse practitioner. Patient was initially Snyder acted for putting holes in fink, attempting to start a fire, threatening other patients with a coat stock hanger, etc. Patient at this point is no longer being calm and cooperative. She is threatening others, threatening to harm herself, unable to follow direction, requiring injectable medication, and banging herself against the fink and doors. Patient is noncompliant with providing a history at this time. However, this physician has reviewed the previous histories from her last 2 admissions. She is noted to be prescribed Depakote but her Depakote level today is subtherapeutic. There is a question of noncompliance with medicine although the patient denies this. The patient has been kicked out of previous residential facilities for aggressive behavior and she appears to be unable or unwilling to control herself in her current "new" facility. She intermittently denies suicidality or homicidality but then engages in behavior which is obviously intended to be harmful to herself or others. Tobacco Use In Past 30 Days: 5 or More Cigarettes/Day Alcohol Use: Never Hospital Course Patient was admitted to a locked, inpatient psychiatric unit. Appropriate precautions were in place throughout patient's hospital stay. Patient was seen and examined on the unit by psychiatry and also visited by counselor. Psychotropic medications were resumed, and patient was started on long-acting injectable Abilify Maintena prior to discharge. Patient's behavior seemed to improve with resumption of psychotropic medications, and she was no real behavioral problem in the 24 hours prior to discharge, although she remained childlike and somewhat labile throughout. There was no evidence of any suicidality or homicidality on the inpatient unit. On the day of discharge: Patient seen and examined with nurse. Chart reviewed. Snyder Act was not addressed by admitting clinician or weekend rounder and will this morning. Case discussed with nursing staff. No behavioral issues noted overnight. Case discussed with counselor, who continues to try to reach facility to discuss patient's return there. On my examination this morning, patient is calm and cooperative. She is requesting discharge from the hospital today. She denies any suicidal or homicidal ideation, intent or plan on direct questioning and contracts for safety. She says that she acted out at her facility because she didn't like it there. She is fairly vague as to where she would go on discharge today. I can elicit no depressive or hypomanic/manic symptoms in this patient at this time. She denies any audiovisual hallucinations, and I can elicit no delusional material. There is no impairment in reality construction. Cluster B personality traits remain prominent. She denies side effects from medications. She is agreeable to starting Abilify Maintena today, and I have discussed the R/B/A for this medication and provided education regarding the need for temporary supplementation with oral Abilify as well as regarding the dosing interval for long-acting injectable Abilify. No physical complaints. Suicide and violence risk assessment on day of discharge both suggests lower imminent risk, although impulsivity from cluster B personality style confers chronic but not acute or imminent risk that would not be ameliorated by a longer inpatient psychiatric hospital stay. There is no evidence of any self-care deficit presently. The patient does not meet criteria for involuntary psychiatric hospitalization at this time. I have strongly recommended that she remain on the unit to allow us to firm up her discharge plan and for further observation, but she has declined. Given that I have no basis to retain this patient involuntarily at this time and given that her Snyder act will this morning, I will discharge her AGAINST MEDICAL ADVICE. I have explained to the patient that she is leaving AGAINST MEDICAL ADVICE. Patient to follow-up psychiatrically as arranged by counselor. Patient is also to follow-up with primary care. Patient to return to psychiatric emergency room for any concerning psychiatric symptoms. Results Blood Pressure 115 / 57 Vital Signs Date Time Temp Pulse Resp B/P (MAP) Pulse Ox O2 Delivery O2 Flow Rate FiO2 04/14/17 05:37 98.1 91 17 115/57 (76) 97 04/11/17 06:19 Room Air Laboratory Tests Test 04/12/17 09:35 Total Protein 8.8 GM/DL (6.4-8.2) Aspartate Amino Transf (AST/SGOT) 11 U/L (15-37) Estimat Glomerular Filtration Rate 78 ML/MIN (>89) Triglycerides Level 184 MG/DL (42-150) LDL Cholesterol 100 MG/DL (0-99) HDL Cholesterol 37.6 MG/DL (40.0-60.0) 25-Hydroxy Vitamin D Total 24.6 ng/ML (30-100) Laboratory Results Test 04/10/17 18:27 04/12/17 09:35 Valproic Acid (Depakene) Level 28 MCG/ML (50-100) Cholesterol Level 174 MG/DL (120-200) HDL Cholesterol 37.6 MG/DL (40.0-60.0) Hemoglobin A1c 4.6 % (4.3-6.0) LDL Cholesterol 100 MG/DL (0-99) Triglycerides Level 184 MG/DL (42-150) Summary of Major Lab Results Admission labs and EKG reviewed. Summary of Procedures None done Imaging None done Pending results at discharge: No Medications # of Antipsychotic meds at D/C: 1 Approp Antipsych med options 1 - Minimum of three failed multiple trials of monotherapy. 2 - Documented plan to taper to monotherapy due to previous use of multiple meds OR cross-taper in progress at D/C. 3 - Documentation of augmentation of Clozapine. 4 - Justification other than those listed in allowable values 1-3, document here : Discharge Discharge Date: Apr 14, 2017 Discharge Diagnosis: (1) Cluster B personality disorder Diagnosis: Principal ICD Code: F60.9 - Personality disorder, unspecified Status: Chronic (2) Borderline intellectual functioning Diagnosis: Secondary ICD Code: R41.83 - Borderline intellectual functioning Status: Chronic (3) Polysubstance abuse Diagnosis: Secondary ICD Code: F19.10 - Other psychoactive substance abuse, uncomplicated Status: Chronic Pt Condition on Discharge: Guarded (because AMA discharge) Discharge Disposition: Discharge Home Discharge Instructions Diet Instructions: As Tolerated, No Restrictions Activities you can perform: Weight Bearing as Velvet Scheduled Appointment: as per counselor's notes New Orders: AMMONIA - 2-3 Days BASIC METABOLIC PROF - 1 Week DEPAKENE - 2-3 Days New Medications: Aripiprazole Maintena Dual Chamber Inj (Abilify Maintena Dual Chamber Inj) 400 Mg Inj 400 MG IM Q28D for Mental Health, #1 SYRINGE 0 Refills This dose of Abilify Maintena is due on 04/11/2017. Changed Medications: Aripiprazole (Aripiprazole) 15 Mg Tab 15 MG PO DAILY for Mental Health for 14 Days, #14 TAB 0 Refills (Changed from: 15; 15; Refills: 1) Take oral Abilify for 14 days then stop. Be sure to get your next Abilify Maintena injection as ordered. Continued Medications: Atorvastatin (Lipitor) 10 Mg Tab 10 MG PO HS for Cholesterol Management for 15 Days, TAB [address] (Divalproex DR) 250 Mg Tabdr 750 MG PO BID for Seizure Control for 15 Days, #90 TAB 1 Refill (This prescription has been renewed) Levocarnitine (Metabolic Modif) (Carnitor) 330 Mg Tab 330 MG PO TID for Hyperammonemia for 15 Days, TAB 1 Refill (This prescription has been renewed) Levothyroxine (Synthroid) 50 Mcg Tab 50 MCG PO DAILY@0600 for Thyroid for 15 Days, TAB 1 Refill Lorazepam (Ativan) 1 Mg Tab 1 MG PO Q6H PRN for MODERATE TO SEVERE ANXIETY, #30 TAB 1 Refill [Albuterol Hfa Inh] () 60 PUFF/8 GM AERO 1 PUFF INH Q4H PRN for SHORTNESS OF BREATH, #1 INHALER 1 Refill Discharge Time <= 30 minutes Mental Status Examination Appearance: Appropriate, Well dressed/well groomed Consciousness: Alert Orientation: x4 Motor Activity: Normal gait, Other (no abnormal motor movements noted) Speech: Unremarkable Language: Adequate Attention and Concentration: Other (fair) Memory: Unremarkable Mood: Appropriate, Good Affect: Euthymic (childlike) Thought Process & Associations: Intact, Logical, Linear Thought Content: Appropriate Hallucination Type: None Delusion Type: None Suicidal Ideation: No Suicidal Plan: No Suicidal Intention: No Homicidal Ideation: No Homicidal Plan: No Homicidal Intention: No Insight: Poor (chronic condition) Judgment: Poor (chronic condition) Discharge/Advance Care Plan Health Problems: (1) Intermittent explosive disorder Goals to promote your health * To prevent worsening of your condition and complications * To maintain your health at the optimal level Directions to meet your goals Take your medications as prescribed Follow your dietary instruction Follow activity as directed Keep your appointments as scheduled Take your immunizations and boosters as scheduled If your symptoms worsen call your PCP, if no PCP go to Urgent Care Center or Emergency Room For 25/11 questions related to your inpatient stay or results of tests pending at discharge, please contact Dr. Ricky Spangler at Smoking is Dangerous to Your Health. Avoid second hand smoking Ricky Spangler MD Apr 14, 2017 08:35
[2017-04-14] MEDS: DIVALPROEX SODIUM DELAYED RELEASE 250 MG TAB PO SCH (08:43)
[2017-04-14] MEDS: ARIPiprazole 10 MG TAB PO SCH (08:43)
== END 2017-04-14 13:55 | disposition left against medical advice (07) | DRG 883 ==
LOC: NEDAMB 17:56 → NEDA 04-11 10:27 → H270 04-11 12:05
PROVIDERS: ADMIT Psychiatry & Neurology Psychiatry; ATTEND Psychiatry & Neurology Psychiatry
DX: F63.81 Intermittent explosive disorder (principal); Z91.14 Patient's other noncompliance with medication regimen; E07.9 Disorder of thyroid, unspecified; F60.89 Other specific personality disorders; F43.25 Adjustment disorder with mixed disturbance of emotions and conduct; F31.9 Bipolar disorder, unspecified; F90.9 Attention-deficit hyperactivity disorder, unspecified type; R41.83 Borderline intellectual functioning; Z91.19 Patient's noncompliance with other medical treatment and regimen; Z91.5 Personal history of self-harm; Z62.810 Personal history of physical and sexual abuse in childhood; Z72.0 Tobacco use; E78.00 Pure hypercholesterolemia, unspecified; F19.10 Other psychoactive substance abuse, uncomplicated; E66.3 Overweight; Z68.34 Body mass index [BMI] 34.0-34.9, adult
CPT/HCPCS: 80053; 80061; 80164; 80307; 81001; 82306; 82607; 83036; 84443; 84703; 85025; 93005; 99285; J1200; J1630; J2060; J3486

== ENCOUNTER 2017-05-10 15:50 | Observation (INO) | payer OTHER ==
[~2017-05-10] VITALS: Ht 162.6 cm; Wt 90.0 kg
[~2017-05-10 15:50] MED LIST changes: +ARIP10IN IM
--- NOTE | 2017-05-10 15:58 | PD ---
HPI Chief Complaint: seizure Time Seen by Provider: 15:57 Travel History International Travel<30 days: No Contact w/Intl Traveler<30days: No Traveled to known affect area: No History of Present Illness HPI 21-year-old female came to the emergency room brought by EMS after having a seizure. Patient does have history of seizures and is on Depakote. She has a power wood sawyer who administers the medications as per the patient. She was awake and answering questions little slowly but appropriately. Vital signs are stable. No history of head injury, tongue bite or incontinence. Patient says she has been compliant with her medication since his being administered to her. [facility] Past Medical History Narrative Medical List of her past medical, surgical, social and family history is reviewed from the nursing note. ADHD: Yes Arthritis: No Asthma: No Autoimmune Disease: No Bipolar Disorder: Yes Anxiety: Yes Depression: Yes Heart Rhythm Problems: No Cancer: No Cardiovascular Problems: No High Cholesterol: Yes Chemotherapy: No Chest Pain: No Congestive Heart Failure: No COPD: No Cerebrovascular Accident: No Diabetes: No Diminished Hearing: No Endocrine: No GERD: No Genitourinary: No Headaches: No Hiatal Hernia: No Immune Disorder: No Kidney Stones: No Musculoskeletal: No Neurologic: No Psychiatric: Yes Reproductive: No Respiratory: No Immunizations Current: No Migraines: No Radiation Therapy: No Renal Failure: No Seizures: No Sickle Cell Disease: No Sleep Apnea: No Thyroid Disease: No Ulcer: No : 0 Para: 0 Past Surgical History Abdominal Surgery: No AICD: No Appendectomy: No Arteriovenous Shunt: No Cardiac Surgery: No Cholecystectomy: No Ear Surgery: No Endocrine Surgery: No Eye Surgery: No Genitourinary Surgery: No Gynecologic Surgery: Yes Insulin Pump: No Joint Replacement: No Oral Surgery: No Pacemaker: No Thoracic Surgery: No Other Surgery: No Social History Alcohol Use: No Tobacco Use: Yes (1/2 PPD ) Substance Use: Yes (marijuana, k2 and cocaine) Allergies-Medications (Allergen,Severity, Reaction): Coded Allergies: No Known Allergies (Verified Allergy, Unknown, 02/18/06) Comments No known drug allergies. Reported Meds & Prescriptions Reported Meds & Active Scripts Active Abilify Maintena Dual Chamber Inj (Aripiprazole) 400 Mg Inj 400 Mg IM Q28D This dose of Abilify Maintena is due on 04/11/2017. Carnitor (Levocarnitine (Metabolic Modif)) 330 Mg Tab 330 Mg PO TID 15 Days Aripiprazole 15 Mg Tab 15 Mg PO DAILY 14 Days Take oral Abilify for 14 days then stop. Be sure to get your next Abilify Maintena injection as ordered. Synthroid (Levothyroxine Sodium) 50 Mcg Tab 50 Mcg PO DAILY@0600 15 Days Lipitor (Atorvastatin Calcium) 10 Mg Tab 10 Mg PO HS 15 Days [Albuterol Hfa Inh] 60 PUFF/8 GM Aero 1 Puff INH Q4H PRN Ativan (Lorazepam) 1 Mg Tab 1 Mg PO Q6H PRN Narrative Medication List of her home medications reviewed from the nursing note. Review of Systems Except as stated in HPI: all other systems reviewed are Neg Neurologic: Positive: Seizures Physical Exam Narrative GENERAL: Awake, alert, no obvious distress SKIN: Focused skin assessment warm/dry. HEAD: Atraumatic. Normocephalic. EYES: Pupils equal and round. No scleral icterus. No injection or drainage. ENT: No nasal bleeding or discharge. Mucous membranes pink and moist. NECK: Trachea midline. No JVD. CARDIOVASCULAR: Regular rate and rhythm. No murmur appreciated. RESPIRATORY: No accessory muscle use. Clear to auscultation. Breath sounds equal bilaterally. GASTROINTESTINAL: Abdomen soft, non-tender, nondistended. Hepatic and splenic margins not palpable. MUSCULOSKELETAL: No obvious deformities. No clubbing. No cyanosis. No edema. NEUROLOGICAL: Awake and alert. No obvious cranial nerve deficits. Motor grossly within normal limits. Normal speech. PSYCHIATRIC: Appropriate mood and affect; insight and judgment normal. Data Data Last Documented VS Vital Signs Date Time Temp Pulse Resp B/P (MAP) Pulse Ox O2 Delivery O2 Flow Rate FiO2 05/10/17 16:02 100.0 99 18 109/76 (87) 97 Orders Orders Complete Blood Count With Diff (05/10/17 15:58) Basic Metabolic Panel (Bmp) (05/10/17 15:58) Drug Screen, Random Urine (05/10/17 15:58) Blood Glucose (05/10/17 15:58) Ecg Monitoring (05/10/17 15:58) Iv Access Insert/Monitor (05/10/17 15:58) Oximetry (05/10/17 15:58) Sodium Chloride 0.9% Flush (Ns Flush) (05/10/17 16:00) Urinalysis - C+S If Indicated (05/10/17 15:58) Valproic Acid (Depakene) (05/10/17 16:02) Chest, Single Ap (05/10/17 ) Diet Regular Basic (05/10/17 Dinner) Sodium Chlor 0.9% 1000 Ml Inj (Ns 1000 M (05/10/17 18:15) Admit Order (Ed Use Only) (05/10/17 18:26) Labs Laboratory Tests Test 05/10/17 16:35 05/10/17 17:35 White Blood Count 6.9 TH/MM3 Red Blood Count 4.64 MIL/MM3 Hemoglobin 15.1 GM/DL Hematocrit 44.6 % Mean Corpuscular Volume 96.2 FL Mean Corpuscular Hemoglobin 32.5 PG Mean Corpuscular Hemoglobin Concent 33.8 % Red Cell Distribution Width 13.7 % Platelet Count 129 TH/MM3 Mean Platelet Volume 9.6 FL Neutrophils (%) (Auto) 63.5 % Lymphocytes (%) (Auto) 27.0 % Monocytes (%) (Auto) 8.5 % Eosinophils (%) (Auto) 0.6 % Basophils (%) (Auto) 0.4 % Neutrophils # (Auto) 4.4 TH/MM3 Lymphocytes # (Auto) 1.9 TH/MM3 Monocytes # (Auto) 0.6 TH/MM3 Eosinophils # (Auto) 0.0 TH/MM3 Basophils # (Auto) 0.0 TH/MM3 CBC Comment DIFF FINAL Differential Comment Blood Urea Nitrogen 15 MG/DL Creatinine 0.62 MG/DL Random Glucose 77 MG/DL Calcium Level 8.7 MG/DL Sodium Level 139 MEQ/L Potassium Level 4.2 MEQ/L Chloride Level 108 MEQ/L Carbon Dioxide Level 24.3 MEQ/L Anion Gap 7 MEQ/L Estimat Glomerular Filtration Rate 120 ML/MIN Valproic Acid (Depakene) Level 136 MCG/ML Urine Color LIGHT-YELLOW Urine Turbidity CLEAR Urine pH 6.0 Urine Specific [place] 1.011 Urine Protein NEG mg/dL Urine Glucose (UA) NEG mg/dL Urine Ketones NEG mg/dL Urine Occult Blood NEG Urine Nitrite NEG Urine Bilirubin NEG Urine Urobilinogen LESS THAN 2.0 MG/DL Urine Leukocyte Esterase MOD Urine RBC 3 /hpf Urine WBC 4 /hpf Urine Squamous Epithelial Cells 2 /hpf Urine Hyaline Casts 1 /lpf Urine Mucus FEW /lpf Microscopic Urinalysis Comment CULT NOT INDICATED Urine Opiates Screen NEG Urine Barbiturates Screen NEG Urine Amphetamines Screen NEG Urine Benzodiazepines Screen NEG Urine Cocaine Screen NEG Urine Cannabinoids Screen NEG MDM Medical Decision Making Medical Screen Exam Complete: Yes Emergency Medical Condition: Yes Medical Record Reviewed: Yes Differential Diagnosis Break through seizures, seizure disorder Narrative Course 6:18 PM blood test results of back and her Depakote level was high. Based on this I would like to admit her for observation. Patient was given 2 L of IV fluid bolus. Procedures EKG Prior to Arrival: No Diagnosis Primary Impression: Seizure Additional Impression: Depakote toxicity Admitting Information Admitting Physician Requests: Observation Scripts Divalproex DR (Depakote DR) 500 Mg Tabdr 500 MG PO BID for Control Seizures, #60 TAB 0 Refills Prov: Brittney Diaz 05/11/17 Paris Menon MD May 10, 2017 15:58
[2017-05-10] MEDS ORDERED: SODIUM CHLORIDE 0.9% FLUSH 10 ML FLUSH IVF PRN (16:00)
[2017-05-10 16:02] VITALS: BP 109/76; PULSE 99; RESP 18; TEMP 100; O2SAT 97
--- NOTE | 2017-05-10 17:10 | RADRPT ---
EXAM DATE/TIME: 05/10/2017 16:10 [place] COMPARISON: No previous studies available for comparison. INDICATIONS : Shortness of breath. MEDICAL HISTORY : Asthma. Seizures. SURGICAL HISTORY : None. ENCOUNTER: Initial ACUITY: 1 day PAIN SCORE: 10/10 LOCATION: Bilateral chest FINDINGS: A single view of the chest demonstrates the lungs to be symmetrically aerated without evidence of mas s, infiltrate or effusion. The cardiomediastinal contours are unremarkable. Osseous structures are intact. CONCLUSION: 1. No acute cardiopulmonary disease. Ricky Diaz MD on May 10, 2017 at 17:08 Board Certified Radiologist. This report was verified electronically.
[2017-05-10 17:18] LABS: AUTOMATED NEUTROPHIL # 4.4 TH/MM3 (1.8-7.7); BASOPHIL % 0.4 % (0.0-2.0); EOSINOPHIL % 0.6 % (0.0-4.0); HEMATOCRIT 44.6 % (35.0-46.0); HEMOGLOBIN 15.1 GM/DL (11.6-15.3); LYMPHOCYTE # 1.9 TH/MM3 (1.0-4.8); MEAN CELL VOLUME 96.2 FL (80.0-100.0); MEAN CORPUSCULAR HEMOGLOBIN 32.5 PG (27.0-34.0); MEAN CORPUSCULAR HGB CONC 33.8 % (32.0-36.0); MEAN PLATELET VOLUME 9.6 FL (7.0-11.0); MONO % 8.5 % (0.0-8.0); MONOCYTE # 0.6 TH/MM3 (0-0.9); NEUT % 63.5 % (16.0-70.0); PLATELET COUNT 129 TH/MM3 (150-450); RED BLOOD COUNT 4.64 MIL/MM3 (4.00-5.30); RED CELL DISTRIBUTION WIDTH 13.7 % (11.6-17.2); WHITE BLOOD COUNT 6.9 TH/MM3 (4.0-11.0)
[2017-05-10 17:40] LABS: BICARBONATE 24.3 MEQ/L (21.0-32.0); CALCIUM 8.7 MG/DL (8.5-10.1); CREATININE 0.62 MG/DL (0.50-1.00)
[2017-05-10] MEDS ORDERED: SODIUM CHLOR 0.9% 1000 ML INJ 1,000 ML IV ONE (18:15)
[2017-05-10 18:16] LABS: BILIRUBIN, URINE NEG (NEG); BLOOD, URINE NEG (NEG); GLUCOSE,URINE NEG (NEG); HYALINE CAST, URINE 1 /lpf (RARE); KETONE, URINE NEG (NEG); MUCUS URINE FEW /lpf (OCC); NITRITE,URINE NEG (NEG); SQUAMOUS EPITHELIAL CELL URINE 2 /hpf (0-5); URINE COLOR LIGHT-YELLOW (YELLW/STRAW); URINE LEUKOCYTE ESTERASE MOD (NEG)
[2017-05-10] MEDS ORDERED: BISACODYL 10 MG SUPP RECTAL PRN (19:00)
[2017-05-10] MEDS ORDERED: SODIUM CHLOR 0.9% 1000 ML INJ 1,000 ML IV SCH (19:00)
[2017-05-10] MEDS ORDERED: ACETAMINOPHEN 325 MG TAB PO PRN (19:00)
[2017-05-10] MEDS ORDERED: LACTULOSE SYRUP 20 GM/30 ML CUP PO PRN (19:00)
[2017-05-10] MEDS ORDERED: SENNOSIDES 8.6 MG TAB PO PRN (19:00)
[2017-05-10] MEDS ORDERED: MAGNESIUM HYDROXIDE SUSP 30 ML CUP PO PRN (19:00)
[2017-05-10] MEDS ORDERED: ONDANSETRON HCL 4 MG/2 ML VIAL IVP PRN (19:00)
[2017-05-10] MEDS ORDERED: SODIUM CHLORIDE 0.9% FLUSH 10 ML FLUSH IV FLUSH PRN (19:00)
--- NOTE | 2017-05-10 19:02 | HHI.HP ---
HPI [facility] Primary Care Physician Unknown Admission Diagnosis seizure, Depakote toxicity Diagnoses: (1) Seizure Diagnosis: Principal (2) Valproic acid toxicity Diagnosis: Principal (3) Polysubstance abuse Diagnosis: Principal Travel History International Travel<30 Days: No Contact w/Intl Traveler <30 Da: No Traveled to Known Affected Are: No History of Present Illness This is a 21-year-old female with a PMH of Anxiety, Depression, Bipolar Disorder , ADHD, Seizure Disorder, Tobacco Abuse and Substance Abuse w/ Cocaine/Marijuana /K2 who was brought to the ER by EMS secondary to seizure. Upon EMS arrival, pt noted to be post-ictal, back to baseline mental status upon arrival to ER. States she "smoked something" a friend gave her, but doesn't know what it was. H/o Seizure on Depakote, reports compliance w/ meds. BP 109/76, HR 99, O2 sat 97% on RA, Temp 100.0. CBC essentially unremarkable except for platelets 129, previously 214 on 04/22/17. Chemistry unremarkable. UA negative. Urine Drug Screen negative. Valproic Acid 136. CXR with no acute findings. Review of Systems Except as stated in HPI: all other systems reviewed are Neg ROS: 14 point review of systems otherwise negative. Past Family Social History Past Medical History PMH: Anxiety, Depression, Bipolar Disorder, ADHD, Seizure Disorder, Tobacco Abuse and Substance Abuse w/ Cocaine/Marijuana/K2 Past Surgical History PAST SURGICAL HISTORY: None Allergies: Coded Allergies: No Known Allergies (Verified Allergy, Unknown, 02/18/06) Family History PAST FAMILY HISTORY: Reviewed. No h/o DM or CAD Social History PAST SOCIAL HISTORY: Negative for alcohol. Smokes 1/2-1ppd. +Marijuana/K2/ Cocaine Physical Exam Vital Signs Vital Signs Date Time Temp Pulse Resp B/P (MAP) Pulse Ox O2 Delivery O2 Flow Rate FiO2 05/10/17 16:02 100.0 99 18 109/76 (87) 97 Physical Exam PE: GENERAL: Young white female in no acute distress. Up and ambulating without difficulty. HEENT: PERRLA, EOMI. No scleral icterus or conjunctival pallor. No lid lag or facial droop. CARDIOVASCULAR: Regular rate and rhythm. No obvious murmurs to auscultation. No chest tenderness to palpation. RESPIRATORY: No obvious rhonchi or wheezing. Clear to auscultation. Breath sounds equal bilaterally. GASTROINTESTINAL: Abdomen soft, non-tender, nondistended. BS normal. MUSCULOSKELETAL: Extremities without clubbing, cyanosis, or edema. No obvious deformities. NEUROLOGICAL: Awake, alert and oriented x4. No focal neurologic deficits. Moving both upper and lower extremities spontaneously. Laboratory Laboratory Tests Test 05/10/17 16:35 05/10/17 17:35 White Blood Count 6.9 Red Blood Count 4.64 Hemoglobin 15.1 Hematocrit 44.6 Mean Corpuscular Volume 96.2 Mean Corpuscular Hemoglobin 32.5 Mean Corpuscular Hemoglobin Concent 33.8 Red Cell Distribution Width 13.7 Platelet Count 129 Mean Platelet Volume 9.6 Neutrophils (%) (Auto) 63.5 Lymphocytes (%) (Auto) 27.0 Monocytes (%) (Auto) 8.5 Eosinophils (%) (Auto) 0.6 Basophils (%) (Auto) 0.4 Neutrophils # (Auto) 4.4 Lymphocytes # (Auto) 1.9 Monocytes # (Auto) 0.6 Eosinophils # (Auto) 0.0 Basophils # (Auto) 0.0 CBC Comment DIFF FINAL Differential Comment Blood Urea Nitrogen 15 Creatinine 0.62 Random Glucose 77 Calcium Level 8.7 Sodium Level 139 Potassium Level 4.2 Chloride Level 108 Carbon Dioxide Level 24.3 Anion Gap 7 Estimat Glomerular Filtration Rate 120 Valproic Acid (Depakene) Level 136 Urine Color LIGHT-YELLOW Urine Turbidity CLEAR Urine pH 6.0 Urine Specific [place] 1.011 Urine Protein NEG Urine Glucose (UA) NEG Urine Ketones NEG Urine Occult Blood NEG Urine Nitrite NEG Urine Bilirubin NEG Urine Urobilinogen LESS THAN 2.0 Urine Leukocyte Esterase MOD Urine RBC 3 Urine WBC 4 Urine Squamous Epithelial Cells 2 Urine Hyaline Casts 1 Urine Mucus FEW Microscopic Urinalysis Comment CULT NOT INDICATED Urine Opiates Screen NEG Urine Barbiturates Screen NEG Urine Amphetamines Screen NEG Urine Benzodiazepines Screen NEG Urine Cocaine Screen NEG Urine Cannabinoids Screen NEG Result Diagram: 05/10/17 1635 05/10/17 163 Caprini VTE Risk Assessment Caprini VTE Risk Assessment: No/Low Risk (score <= 1) Caprini Risk Assessment Model Point Value = 1 Point Value = 2 Point Value = 3 Point Value = 5 Age 41-60 Minor surgery BMI > 25 kg/m2 Swollen legs Varicose veins or History of unexplained or recurrent spontaneous Oral contraceptives or hormone replacement Sepsis (< 1 month) Serious lung disease, including pneumonia (< 1 month) Abnormal pulmonary function Acute myocardial infarction Congestive heart failure (< 1 month) History of inflammatory bowel disease Medical patient at bed rest Age 61-74 Arthroscopic surgery Major open surgery (> 45 min) Laparoscopic surgery (> 45 min) Malignancy Confined to bed (> 72 hours) Immobilizing plaster cast Central venous access Age >= 75 History of VTE Family history of VTE Factor V Leiden Prothrombin [id number] Lupus anticoagulant Anticardiolipin antibodies Elevated serum homocysteine Heparin-induced thrombocytopenia Other congenital or acquired thrombophilia Stroke (< 1 month) Elective arthroplasty Hip, pelvis, or leg fracture Acute spinal cord injury (< 1 month) Prophylaxis Regimen Total Risk Factor Score Risk Level Prophylaxis Regimen 0-1 Low Early ambulation 2 Moderate Order ONE of the following: *Sequential Compression Device (SCD) *Heparin 5000 units SQ BID 3-4 Higher Order ONE of the following medications: *Heparin 5000 units SQ TID *Enoxaparin/Lovenox 40 mg SQ daily (WT < 150 kg, CrCl > 30 mL/min) *Enoxaparin/Lovenox 30 mg SQ daily (WT < 150 kg, CrCl > 10-29 mL/min) *Enoxaparin/Lovenox 30 mg SQ BID (WT < 150 kg, CrCl > 30 mL/min) AND/OR *Sequential Compression Device (SCD) 5 or more Highest Order ONE of the following medications: *Heparin 5000 units SQ TID (Preferred with Epidurals) *Enoxaparin/Lovenox 40 mg SQ daily (WT < 150 kg, CrCl > 30 mL/min) *Enoxaparin/Lovenox 30 mg SQ daily (WT < 150 kg, CrCl > 10-29 mL/min) *Enoxaparin/Lovenox 30 mg SQ BID (WT < 150 kg, CrCl > 30 mL/min) AND *Sequential Compression Device (SCD) Assessment and Plan Problem List: (1) Seizure ICD Code: R56.9 - Unspecified convulsions (2) Valproic acid toxicity ICD Code: T42.6X1A - Poisoning by other antiepileptic and sedative-hypnotic drugs, accidental (unintentional), initial encounter (3) Polysubstance abuse ICD Code: F19.10 - Other psychoactive substance abuse, uncomplicated Status: Chronic Assessment and Plan A/P: 1. Seizure: h/o Seizure Disorder, reports compliance w/ Depakote, witnessed seizure x1 today, admits to smoking something friend gave her but unsure what it was, ? drug related. Urine Drug Screen negative. Admit for Observation, Seizure Precautions, Ativan prn. IVF for hydration. 2. Valproic Acid Toxicity: Valproic level 136, on Depakote 750mg bid, will hold Depakote for now, repeat Valproic Acid level in am. Telemetry for possible arrhythmia, seizure precautions as above. 3. Polysubstance Abuse: +Tobacco, Cocaine, Marijuana, K2. Urine Drug Screen negative however admits to smoking unknown substance today. Will monitor. Ativan/NicoDerm as needed. 4. DVT Prophylaxis: SCD/Teds. 5. Social work for d/c planning as needed. 6. Records/imaging/labs reviewed by me, case discussed at length w/ day physician. Dahlia Allen MD May 10, 2017 19:02
[2017-05-10] MEDS ORDERED: LORazepam 2 MG/ML VIAL IV PUSH PRN (19:15)
[2017-05-10 20:11] VITALS: BP 100/49; PULSE 97; RESP 18; O2SAT 100
[2017-05-10] MEDS: DOCUSATE SODIUM 50 MG/SENNA 8.6 MG TAB PO SCH (21:00)
[2017-05-10] MEDS: SODIUM CHLORIDE 0.9% FLUSH 10 ML FLUSH IV FLUSH SCH (21:00)
[2017-05-10 21:42] VITALS: BP 109/55; PULSE 70; RESP 16; TEMP 98.5; O2SAT 97
[2017-05-10 23:40] VITALS: BP 102/55; PULSE 86; RESP 15; TEMP 98.4; O2SAT 97
[2017-05-11 03:45] VITALS: BP 95/54; PULSE 79; RESP 15; TEMP 98.2; O2SAT 95
[2017-05-11 05:16] LABS: AUTOMATED NEUTROPHIL # 2.3 TH/MM3 (1.8-7.7); BASOPHIL % 0.2 % (0.0-2.0); EOSINOPHIL # 0.1 TH/MM3 (0-0.4); EOSINOPHIL % 0.9 % (0.0-4.0); HEMATOCRIT 37.8 % (35.0-46.0); HEMOGLOBIN 12.7 GM/DL (11.6-15.3); LYMPH % 51.2 % (9.0-44.0); MEAN CELL VOLUME 95.7 FL (80.0-100.0); MEAN CORPUSCULAR HEMOGLOBIN 32.2 PG (27.0-34.0); MEAN CORPUSCULAR HGB CONC 33.6 % (32.0-36.0); MEAN PLATELET VOLUME 9.3 FL (7.0-11.0); MONO % 8.9 % (0.0-8.0); MONOCYTE # 0.5 TH/MM3 (0-0.9); NEUT % 38.8 % (16.0-70.0); PLATELET COUNT 105 TH/MM3 (150-450); RED BLOOD COUNT 3.95 MIL/MM3 (4.00-5.30); RED CELL DISTRIBUTION WIDTH 13.9 % (11.6-17.2); WHITE BLOOD COUNT 5.9 TH/MM3 (4.0-11.0)
[2017-05-11 05:44] LABS: ALBUMIN 2.5 GM/DL (3.4-5.0); ALKALINE PHOSPHATASE 45 U/L (45-117); ALT (GPT) 9 U/L (10-53); AST (GOT) 9 U/L (15-37); BICARBONATE 24.5 MEQ/L (21.0-32.0); BLOOD UREA NITROGEN 17 MG/DL (7-18); CALCIUM 7.5 MG/DL (8.5-10.1); CHLORIDE 111 MEQ/L (98-107); CREATININE 0.62 MG/DL (0.50-1.00); GLOMERULAR FILTRATION RATE 120 ML/MIN (>89); GLUCOSE,RANDOM 93 MG/DL (74-106); SODIUM (NA) 142 MEQ/L (136-145); TOTAL BILIRUBIN ADULT 0.2 MG/DL (0.2-1.0); TOTAL PROTEIN 5.7 GM/DL (6.4-8.2)
--- NOTE | 2017-05-11 07:44 | HHI.PR ---
Subjective Remarks in no acute distress. no seizures over night. no other complaints and wants to go home. Objective Vitals Vital Signs Date Time Temp Pulse Resp B/P (MAP) Pulse Ox O2 Delivery O2 Flow Rate FiO2 05/11/17 03:45 98.2 79 15 95/54 (68) 95 05/11/17 00:37 18 05/10/17 23:40 98.4 86 15 102/55 (71) 97 05/10/17 21:42 98.5 70 16 109/55 (73) 97 05/10/17 20:11 97 18 100/49 (66) 100 Room Air 05/10/17 20:11 05/10/17 16:02 100.0 99 18 109/76 (87) 97 I/O 05/10/17 05/10/17 05/10/17 05/11/17 05/11/17 05/11/17 07:00 15:00 23:00 07:00 15:00 23:00 Intake Total 1300 ml 200 ml Balance 1300 ml 200 ml Intake Oral 300 ml 200 ml IV Total 1000 ml Result Diagram: 05/11/17 0451 05/11/17 0451 Imaging Last Impressions Chest X-Ray 05/10/17 0000 Signed Impressions: Service Date/Time: Wednesday, May 10, 2017 16:10 - CONCLUSION: 1. No acute cardiopulmonary disease. Ricky Diaz MD Objective Remarks GENERAL: This is a well-nourished, well-developed patient, in no apparent distress. CARDIOVASCULAR: Regular rate and regular rhythm without murmurs, gallops, or rubs. RESPIRATORY: Clear to auscultation. Breath sounds equal bilaterally. No wheezes , rales, or rhonchi. GASTROINTESTINAL: Abdomen soft, non-tender, nondistended. Normal, active bowel sounds MUSCULOSKELETAL: Extremities without clubbing, cyanosis, or edema. NEURO: Alert & Oriented x4 to person, place, time, situation. Moves all ext x4 Medications and IVs Inpatient Medications Acetaminophen (Tylenol) 650 mg Q6H PRN PO FEVER/PAIN SCALE 1 TO 2; Start at 19:00 Bisacodyl (Dulcolax Supp) 10 mg DAILY PRN RECTAL SEVERE CONSITIPATION; Start at 19:00 Influenza Virus Vaccine (Flu (Quadrivalent) Vaccine Inj) 0.5 ml ONCE ONCE IM ; Start 05/11/17 at 09:00; Stop 05/11/17 at 09:01 Lactulose (Lactulose Liq) 30 ml DAILY PRN PO SEVERE CONSITIPATION; Start at 19:00 Lorazepam (Ativan Inj) 1 mg Q5M PRN IV PUSH SEIZURE; Start 05/10/17 at 19:15 Magnesium Hydroxide (Milk Of Magnesia Liq) 30 ml Q12H PRN PO Mild constipation ; Start 05/10/17 at 19:00 Ondansetron HCl (Zofran Inj) 4 mg Q6H PRN IVP NAUSEA OR VOMITING; Start at 19:00 Oxycodone HCl (Roxicodone) 5 mg Q4H PRN PO PAIN SCALE 3 TO 5 Last administered on 05/10/17at 23:08; Start 05/10/17 at 19:00 Pneumococcal Polyvalent Vaccine (Pneumovax-23 Inj) 25 mcg ONCE ONCE IM ; Start 05/11/17 at 09:00; Stop 05/11/17 at 09:01 Senna/Docusate Sodium (Maile-Colace) 1 tab BID PO ; Start 05/10/17 at 21:00 Sennosides (Senokot) 17.2 mg Q12H PRN PO Moderate constipation; Start 05/10/17 at 19:00 Sodium Chloride (NS Flush) 2 ml BID IV FLUSH Last administered on 05/10/17at 21: 00; Start 05/10/17 at 21:00 A/P Problem List: (1) Seizure ICD Code: R56.9 - Unspecified convulsions (2) Valproic acid toxicity ICD Code: T42.6X1A - Poisoning by other antiepileptic and sedative-hypnotic drugs, accidental (unintentional), initial encounter (3) Polysubstance abuse ICD Code: F19.10 - Other psychoactive substance abuse, uncomplicated Status: Chronic Assessment and Plan A/P 1. Seizure: h/o Seizure Disorder, reports compliance w/ Depakote, witnessed seizure x1 today, admits to smoking something friend gave her but unsure what it was, ? drug related. Urine Drug Screen negative. Seizure Precautions, Ativan prn. IVF for hydration. 2. Valproic Acid Toxicity: Valproic level 136, on Depakote 750mg bid, will hold Depakote for now, repeat Valproic Acid today within therapeutic range. will resume at 500 mg po bid upon discharge and f/u as outpatient with her neurologist. 3. Polysubstance Abuse: +Tobacco, Cocaine, Marijuana, K2. Urine Drug Screen negative however admits to smoking unknown substance today. Will monitor. Ativan/NicoDerm as needed. 4. DVT Prophylaxis: SCD/Teds. Discharge Planning dc home later this afternoon if stable. Roger Mansfield MD May 11, 2017 07:44
[2017-05-11] MEDS ORDERED: DEPA500T PO (08:15)
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
[2017-05-11 08:24] VITALS: BP 109/50; PULSE 77; RESP 20; TEMP 97.6; O2SAT 96
[2017-05-11] MEDS: DOCUSATE SODIUM 50 MG/SENNA 8.6 MG TAB PO SCH (09:00)
[2017-05-11] MEDS ORDERED: INFLUENZA VIRUS VACCINE (QUADRIVALENT) 0.5 ML SYR IM ONE (09:00)
[2017-05-11] MEDS: SODIUM CHLORIDE 0.9% FLUSH 10 ML FLUSH IV FLUSH SCH (09:00)
[2017-05-11] MEDS ORDERED: PNEUMOCOCCAL POLYVALENT INJ 25 MCG/0.5 ML SYR IM ONE (09:00)
== END 2017-05-11 13:09 | disposition home or self-care (01) ==
LOC: NEPC 15:50 → NEDA 18:27 → NEPFCDU 20:23
PROVIDERS: ADMIT Internal Medicine; ATTEND Internal Medicine
DX: G40.909 Epilepsy, unspecified, not intractable, without status epilepticus (principal); T42.6X5A Adverse effect of other antiepileptic and sedative-hypnotic drugs, initial encounter; F14.10 Cocaine abuse, uncomplicated; F31.9 Bipolar disorder, unspecified; F90.9 Attention-deficit hyperactivity disorder, unspecified type; F17.200 Nicotine dependence, unspecified, uncomplicated
CPT/HCPCS: 71045; 80048; 80053; 80164; 80307; 81001; 85025; 96360; 96361; 99285; G0378; J7030

== ENCOUNTER 2017-05-19 00:07 | Observation (INO) | payer OTHER ==
[~2017-05-19] VITALS: Ht 162.6 cm; Wt 97.5 kg
[~2017-05-19 00:07] MED LIST changes: +DEPA500T PO; -DIVA250T PO
[2017-05-19 00:16] VITALS: BP 115/81; PULSE 104; RESP 18; TEMP 98; O2SAT 96
[2017-05-19] MEDS ORDERED: SODIUM CHLOR 0.9% 1000 ML INJ 1,000 ML IV ONE (01:04)
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
[2017-05-19] MEDS ORDERED: SODIUM CHLORIDE 0.9% FLUSH 10 ML FLUSH IVF PRN (01:15)
[2017-05-19 01:39] LABS: AUTOMATED NEUTROPHIL # 4.2 TH/MM3 (1.8-7.7); BASOPHIL # 0.1 TH/MM3 (0-0.2); BASOPHIL % 1.1 % (0.0-2.0); EOSINOPHIL # 0.1 TH/MM3 (0-0.4); HEMATOCRIT 39.8 % (35.0-46.0); HEMOGLOBIN 12.9 GM/DL (11.6-15.3); LYMPH % 32.1 % (9.0-44.0); LYMPHOCYTE # 2.5 TH/MM3 (1.0-4.8); MEAN CELL VOLUME 94.7 FL (80.0-100.0); MEAN CORPUSCULAR HEMOGLOBIN 30.6 PG (27.0-34.0); MEAN CORPUSCULAR HGB CONC 32.3 % (32.0-36.0); MEAN PLATELET VOLUME 9.6 FL (7.0-11.0); MONO % 10.3 % (0.0-8.0); MONOCYTE # 0.8 TH/MM3 (0-0.9); NEUT % 55.5 % (16.0-70.0); PLATELET COUNT 162 TH/MM3 (150-450); WHITE BLOOD COUNT 7.7 TH/MM3 (4.0-11.0)
[2017-05-19 01:49] LABS: CHLORIDE 107 MEQ/L (98-107); SODIUM (NA) 141 MEQ/L (136-145)
[2017-05-19 01:52] LABS: ALBUMIN 3.3 GM/DL (3.4-5.0); BICARBONATE 21.9 MEQ/L (21.0-32.0); CALCIUM 8.4 MG/DL (8.5-10.1); GLUCOSE,RANDOM 118 MG/DL (74-106)
[2017-05-19 01:53] LABS: BLOOD UREA NITROGEN 21 MG/DL (7-18)
[2017-05-19 01:55] LABS: ALT (GPT) 19 U/L (10-53)
[2017-05-19 01:56] LABS: AST (GOT) 16 U/L (15-37); CREATININE 0.74 MG/DL (0.50-1.00); GLOMERULAR FILTRATION RATE 98 ML/MIN (>89)
[2017-05-19 01:57] LABS: TOTAL BILIRUBIN ADULT 0.2 MG/DL (0.2-1.0); TOTAL PROTEIN 7.4 GM/DL (6.4-8.2)
[2017-05-19 01:58] LABS: ALKALINE PHOSPHATASE 63 U/L (45-117)
[2017-05-19 03:15] VITALS: BP 93/53; PULSE 97; RESP 16; O2SAT 97
[2017-05-19] MEDS ORDERED: SODIUM CHLOR 0.9% 1000 ML INJ 1,000 ML IV SCH (05:44)
[2017-05-19] MEDS ORDERED: ONDANSETRON HCL 4 MG/2 ML VIAL IVP PRN (05:45)
[2017-05-19] MEDS ORDERED: LACTULOSE SYRUP 20 GM/30 ML CUP PO PRN (05:45)
[2017-05-19] MEDS ORDERED: MAGNESIUM HYDROXIDE SUSP 30 ML CUP PO PRN (05:45)
[2017-05-19] MEDS ORDERED: LORazepam 2 MG/ML VIAL IV PUSH PRN (05:45)
[2017-05-19] MEDS ORDERED: NALOXONE HCL 0.4 MG/ML AMP IV PUSH PRN (05:45)
[2017-05-19] MEDS ORDERED: SODIUM CHLORIDE 0.9% FLUSH 10 ML FLUSH IV FLUSH PRN (05:45)
[2017-05-19] MEDS ORDERED: BISACODYL 10 MG SUPP RECTAL PRN (05:45)
[2017-05-19] MEDS ORDERED: DIVALPROEX DR 500 MG TABEC PO ONE (05:45)
[2017-05-19] MEDS ORDERED: SENNOSIDES 8.6 MG TAB PO PRN (05:45)
[2017-05-19] MEDS ORDERED: DIVALPROEX SODIUM DELAYED RELEASE 250 MG TAB PO ONE (06:30)
[2017-05-19] MEDS ORDERED: DIVALPROEX DR 500 MG TABEC PO SCH ×2 (09:00→21:00)
[2017-05-19] MEDS ORDERED: ARIPiprazole 15 MG TAB PO SCH (09:00)
[2017-05-19] MEDS ORDERED: SODIUM CHLORIDE 0.9% FLUSH 10 ML FLUSH IV FLUSH SCH (09:00)
[2017-05-19] MEDS ORDERED: DOCUSATE SODIUM 50 MG/SENNA 8.6 MG TAB PO SCH (09:00)
--- NOTE | 2017-05-19 09:29 | HHI.HP ---
[facility] Admission Diagnosis seizure disorder with noncompliance to medications Diagnoses: Chief Complaint: Seizure disorder secondary to noncompliance Travel History International Travel<30 Days: No Contact w/Intl Traveler <30 Da: No Traveled to Known Affected Are: No History of Present Illness This is a 21-year-old female past medical history of anxiety, Depression, Bipolar Disorder, ADHD, Seizure Disorder, Tobacco Abuse, Substance Abuse w/ Cocaine/Marijuana/K2, multiple admissions secondary to seizure disorder, and noncompliance who p/w seizure disorder due to noncompliance. During patient's hospitalization she had no witness seizure. During interview with the patient should complaints. She stated that she does not handle any other medication and that she has a wildlife biostation research ecologist who manages everything. She did not want to answer further questions and handed me a card to call Kizzy Martin who handles everything for her. She stated she has no parents. She was recently admitted to the same problem 1 week ago. She stated she ran out of medication 2 -3 days ago. Patient was given a script during that admission. I spoke to Kizzy Martin as requested by patient and she stated patient fakes her seizures a lot and goes to hospital a lot. She stated that she manages her medication and that from the last script to has 2-3 days left. I told Kizzy I will give her a new script today and gave her the dose from the last admission. discussed case with nurse and she stated no seizure activity, Patient asking about having a ride to go home. She had no other concerns. All other review of systems reviewed and negative. Past Family Social History Past Medical History Anxiety, Depression, Bipolar Disorder, ADHD, Seizure Disorder, Tobacco Abuse and Substance Abuse w/ Cocaine/Marijuana/K2 Past Surgical History None Reported Medications Reported Meds & Active Scripts Active Depakote DR (Divalproex Sodium) 500 Mg Tabdr 500 Mg PO BID Abilify Maintena Dual Chamber Inj (Aripiprazole) 400 Mg Inj 400 Mg IM Q28D This dose of Abilify Maintena is due on 04/11/2017. Carnitor (Levocarnitine (Metabolic Modif)) 330 Mg Tab 330 Mg PO TID 15 Days Aripiprazole 15 Mg Tab 15 Mg PO DAILY 14 Days Take oral Abilify for 14 days then stop. Be sure to get your next Abilify Maintena injection as ordered. Synthroid (Levothyroxine Sodium) 50 Mcg Tab 50 Mcg PO DAILY@0600 15 Days Lipitor (Atorvastatin Calcium) 10 Mg Tab 10 Mg PO HS 15 Days [Albuterol Hfa Inh] 60 PUFF/8 GM Aero 1 Puff INH Q4H PRN Ativan (Lorazepam) 1 Mg Tab 1 Mg PO Q6H PRN Allergies: Coded Allergies: No Known Allergies (Verified Allergy, Unknown, 02/18/06) Active Ordered Medications Current Medications Sodium Chloride 1,000 ml @ 1,000 mls/hr Q1H ONCE IV Last administered on at 01:41; Start 05/19/17 at 01:04; Stop 05/19/17 at 02:03; Status DC Sodium Chloride (NS Flush) 2 ml UNSCH PRN IVF FLUSH AFTER USING IV ACCESS; Start 05/19/17 at 01:15; Stop 05/19/17 at 06:03; Status DC Divalproex Sodium (Depakote Dr) 500 mg ONCE ONCE PO ; Start 05/19/17 at 05:45; Stop 05/19/17 at 05:46; Status DC Lorazepam (Ativan Inj) 1 mg Q5M PRN IV PUSH SEIZURE; Start 05/19/17 at 05:45 Sodium Chloride 1,000 ml @ 100 mls/hr Q10H IV Last administered on 05/19/17at 06:21; Start 05/19/17 at 05:44 Sodium Chloride (NS Flush) 2 ml UNSCH PRN IV FLUSH FLUSH AFTER USING IV ACCESS ; Start 05/19/17 at 05:45 Sodium Chloride (NS Flush) 2 ml BID IV FLUSH ; Start 05/19/17 at 09:00 Ondansetron HCl (Zofran Inj) 4 mg Q6H PRN IVP NAUSEA OR VOMITING; Start at 05:45 Naloxone HCl (Narcan Inj) 0.4 mg UNSCH PRN IV PUSH SEE LABEL COMMENTS; Start at 05:45 Senna/Docusate Sodium (Maile-Colace) 1 tab BID PO ; Start 05/19/17 at 09:00 Magnesium Hydroxide (Milk Of Magnesia Liq) 30 ml Q12H PRN PO Mild constipation ; Start 05/19/17 at 05:45 Sennosides (Senokot) 17.2 mg Q12H PRN PO Moderate constipation; Start 05/19/17 at 05:45 Bisacodyl (Dulcolax Supp) 10 mg DAILY PRN RECTAL SEVERE CONSITIPATION; Start at 05:45 Lactulose (Lactulose Liq) 30 ml DAILY PRN PO SEVERE CONSITIPATION; Start at 05:45 Aripiprazole (Abilify) 15 mg DAILY PO ; Start 05/19/17 at 09:00 Divalproex Sodium (Depakote Dr) 500 mg BID PO ; Start 05/19/17 at 09:00; Stop at 09:00; Status DC Divalproex Sodium (Depakote Dr) 500 mg ONCE ONCE PO Last administered on at 06:38; Start 05/19/17 at 06:30; Stop 05/19/17 at 06:31; Status DC Divalproex Sodium (Depakote Dr) 500 mg BID PO ; Start 05/19/17 at 21:00 Family History Reviewed. No h/o DM or CAD Social History Negative for alcohol. Smokes 1/2-1ppd. +Marijuana/K2/Cocaine Physical Exam Vital Signs Vital Signs Date Time Temp Pulse Resp B/P (MAP) Pulse Ox O2 Delivery O2 Flow Rate FiO2 05/19/17 07:00 65 16 97 Room Air 05/19/17 03:15 97 16 93/53 (66) 97 Room Air 05/19/17 00:28 Room Air 05/19/17 00:16 98.0 104 18 115/81 (92) 96 Physical Exam GENERAL: This is a well-nourished, well-developed patient, in no apparent distress. SKIN: No rashes, ecchymoses or lesions. Cool and dry. HEAD: Atraumatic. Normocephalic. No temporal or scalp tenderness. EYES: Pupils equal round and reactive. Extraocular motions intact. No scleral icterus. No injection or drainage. ENT: Nose without bleeding, purulent drainage or septal hematoma. Throat without erythema, tonsillar hypertrophy or exudate. Uvula midline. Airway patent. NECK: Trachea midline. No JVD or lymphadenopathy. Supple, nontender, no meningeal signs. CARDIOVASCULAR: Regular rate and rhythm without murmurs, gallops, or rubs. RESPIRATORY: Clear to auscultation. Breath sounds equal bilaterally. No wheezes , rales, or rhonchi. GASTROINTESTINAL: Abdomen soft, non-tender, nondistended. No hepato-splenomegaly , or palpable masses. No guarding. MUSCULOSKELETAL: Extremities without clubbing, cyanosis, or edema. No joint tenderness, effusion, or edema noted. No calf tenderness. Negative Homans sign bilaterally. NEUROLOGICAL: Awake and alert. Cranial nerves II through XII intact. Motor and sensory grossly within normal limits. Five out of 5 muscle strength in all muscle groups. Normal speech. Laboratory Laboratory Tests Test 05/19/17 01:28 White Blood Count 7.7 Red Blood Count 4.20 Hemoglobin 12.9 Hematocrit 39.8 Mean Corpuscular Volume 94.7 Mean Corpuscular Hemoglobin 30.6 Mean Corpuscular Hemoglobin Concent 32.3 Red Cell Distribution Width 14.0 Platelet Count 162 Mean Platelet Volume 9.6 Neutrophils (%) (Auto) 55.5 Lymphocytes (%) (Auto) 32.1 Monocytes (%) (Auto) 10.3 Eosinophils (%) (Auto) 1.0 Basophils (%) (Auto) 1.1 Neutrophils # (Auto) 4.2 Lymphocytes # (Auto) 2.5 Monocytes # (Auto) 0.8 Eosinophils # (Auto) 0.1 Basophils # (Auto) 0.1 CBC Comment DIFF FINAL Differential Comment Blood Urea Nitrogen 21 Creatinine 0.74 Random Glucose 118 Total Protein 7.4 Albumin 3.3 Calcium Level 8.4 Alkaline Phosphatase 63 Aspartate Amino Transf (AST/SGOT) 16 Alanine Aminotransferase (ALT/SGPT) 19 Total Bilirubin 0.2 Sodium Level 141 Potassium Level 3.3 Chloride Level 107 Carbon Dioxide Level 21.9 Anion Gap 12 Estimat Glomerular Filtration Rate 98 Human Chorionic Gonadotropin, Quant LESS THAN 1 Valproic Acid (Depakene) Level 4 Result Diagram: 05/19/1712705/19/17127 Caprini VTE Risk Assessment Caprini VTE Risk Assessment: No/Low Risk (score <= 1) Caprini Risk Assessment Model Point Value = 1 Point Value = 2 Point Value = 3 Point Value = 5 Age 41-60 Minor surgery BMI > 25 kg/m2 Swollen legs Varicose veins or History of unexplained or recurrent spontaneous Oral contraceptives or hormone replacement Sepsis (< 1 month) Serious lung disease, including pneumonia (< 1 month) Abnormal pulmonary function Acute myocardial infarction Congestive heart failure (< 1 month) History of inflammatory bowel disease Medical patient at bed rest Age 61-74 Arthroscopic surgery Major open surgery (> 45 min) Laparoscopic surgery (> 45 min) Malignancy Confined to bed (> 72 hours) Immobilizing plaster cast Central venous access Age >= 75 History of VTE Family history of VTE Factor V Leiden Prothrombin [id number] Lupus anticoagulant Anticardiolipin antibodies Elevated serum homocysteine Heparin-induced thrombocytopenia Other congenital or acquired thrombophilia Stroke (< 1 month) Elective arthroplasty Hip, pelvis, or leg fracture Acute spinal cord injury (< 1 month) Prophylaxis Regimen Total Risk Factor Score Risk Level Prophylaxis Regimen 0-1 Low Early ambulation 2 Moderate Order ONE of the following: *Sequential Compression Device (SCD) *Heparin 5000 units SQ BID 3-4 Higher Order ONE of the following medications: *Heparin 5000 units SQ TID *Enoxaparin/Lovenox 40 mg SQ daily (WT < 150 kg, CrCl > 30 mL/min) *Enoxaparin/Lovenox 30 mg SQ daily (WT < 150 kg, CrCl > 10-29 mL/min) *Enoxaparin/Lovenox 30 mg SQ BID (WT < 150 kg, CrCl > 30 mL/min) AND/OR *Sequential Compression Device (SCD) 5 or more Highest Order ONE of the following medications: *Heparin 5000 units SQ TID (Preferred with Epidurals) *Enoxaparin/Lovenox 40 mg SQ daily (WT < 150 kg, CrCl > 30 mL/min) *Enoxaparin/Lovenox 30 mg SQ daily (WT < 150 kg, CrCl > 10-29 mL/min) *Enoxaparin/Lovenox 30 mg SQ BID (WT < 150 kg, CrCl > 30 mL/min) AND *Sequential Compression Device (SCD) Assessment and Plan Assessment and Plan This is a 21 y/o with multiple admissions due to seizures and psychiatric issues who presented with seizures due to noncompliance. Seizure disorder -due to noncompliance. Education given I also spoke to her wildlife biostation research ecologist Kizzy Martin in regards to plan. depoket level 4. -no driving, operating heavy machinery, or swimming alone for at least 6 months AND until cleared by her PCP or neurologist. Anxiety, Depression, Bipolar Disorder, ADHD, Seizure Disorder, Tobacco Abuse and hx Substance Abuse w/ Cocaine/Marijuana/K2 -resume home medication. DVT prophylaxis -encourage ambulation. Code Status full Discussed Condition With patient medically stable for discharge. She just has to take her medication to prevent seizures. She had no seizures witnessed since her hospitalization. Extensive education given about noncompliance. I also spoke to her wildlife biostation research ecologist Kizzy Martin as patient requested from me. ? Secondary gain. Will give another script for Divalprox and I spoke to her wildlife biostation research ecologist in regards to this. Activity: NO driving, operating heavy machinery, or swimming alone for at least 6 months and until cleared by her PCP or neurologist. f/u with PCP within 1 week. Aruna Cee MD May 19, 2017 09:29
[2017-05-19] MEDS ORDERED: DEPA500T PO (09:33)
--- NOTE | 2017-05-19 09:36 | HHI.DCPOC ---
Discharge Care Plan Diagnosis: (1) Seizure disorder (2) Noncompliance with medications Additional Problems DO NOT drive, operate heavy machinery, or swim alone for at least 6 months AND until cleared by your primary care provider or neurologist. Goals to Promote Your Health * To prevent worsening of your condition and complications * To maintain your health at the optimal level Directions to Meet Your Goals Take your medications as prescribed Follow your dietary instruction Follow activity as directed Keep your appointments as scheduled Take your immunizations and boosters as scheduled If your symptoms worsen call your PCP, if no PCP go to Urgent Care Center or Emergency Room Smoking is Dangerous to Your Health. Avoid second hand smoke Call the 24-hour hour crisis hotline for domestic abuse at Aruna Cee MD May 19, 2017 09:36
--- NOTE | 2017-05-19 09:37 | HHI.HP ---
[facility] Admission Diagnosis seizure disorder with noncompliance to medications Diagnoses: Travel History International Travel<30 Days: No Contact w/Intl Traveler <30 Da: No Traveled to Known Affected Are: No Past Family Social History Allergies: Coded Allergies: No Known Allergies (Verified Allergy, Unknown, 02/18/06) Physical Exam Vital Signs Vital Signs Date Time Temp Pulse Resp B/P (MAP) Pulse Ox O2 Delivery O2 Flow Rate FiO2 05/19/17 07:00 65 16 97 Room Air 05/19/17 03:15 97 16 93/53 (66) 97 Room Air 05/19/17 00:28 Room Air 05/19/17 00:16 98.0 104 18 115/81 (92) 96 Physical Exam GENERAL: This is a well-nourished, well-developed patient, in no apparent distress. SKIN: No rashes, ecchymoses or lesions. Cool and dry. HEAD: Atraumatic. Normocephalic. No temporal or scalp tenderness. EYES: Pupils equal round and reactive. Extraocular motions intact. No scleral icterus. No injection or drainage. ENT: Nose without bleeding, purulent drainage or septal hematoma. Throat without erythema, tonsillar hypertrophy or exudate. Uvula midline. Airway patent. NECK: Trachea midline. No JVD or lymphadenopathy. Supple, nontender, no meningeal signs. CARDIOVASCULAR: Regular rate and rhythm without murmurs, gallops, or rubs. RESPIRATORY: Clear to auscultation. Breath sounds equal bilaterally. No wheezes , rales, or rhonchi. GASTROINTESTINAL: Abdomen soft, non-tender, nondistended. No hepato-splenomegaly , or palpable masses. No guarding. MUSCULOSKELETAL: Extremities without clubbing, cyanosis, or edema. No joint tenderness, effusion, or edema noted. No calf tenderness. Negative Homans sign bilaterally. NEUROLOGICAL: Awake and alert. Cranial nerves II through XII intact. Motor and sensory grossly within normal limits. Five out of 5 muscle strength in all muscle groups. Normal speech. Laboratory Laboratory Tests Test 05/19/17 01:28 White Blood Count 7.7 Red Blood Count 4.20 Hemoglobin 12.9 Hematocrit 39.8 Mean Corpuscular Volume 94.7 Mean Corpuscular Hemoglobin 30.6 Mean Corpuscular Hemoglobin Concent 32.3 Red Cell Distribution Width 14.0 Platelet Count 162 Mean Platelet Volume 9.6 Neutrophils (%) (Auto) 55.5 Lymphocytes (%) (Auto) 32.1 Monocytes (%) (Auto) 10.3 Eosinophils (%) (Auto) 1.0 Basophils (%) (Auto) 1.1 Neutrophils # (Auto) 4.2 Lymphocytes # (Auto) 2.5 Monocytes # (Auto) 0.8 Eosinophils # (Auto) 0.1 Basophils # (Auto) 0.1 CBC Comment DIFF FINAL Differential Comment Blood Urea Nitrogen 21 Creatinine 0.74 Random Glucose 118 Total Protein 7.4 Albumin 3.3 Calcium Level 8.4 Alkaline Phosphatase 63 Aspartate Amino Transf (AST/SGOT) 16 Alanine Aminotransferase (ALT/SGPT) 19 Total Bilirubin 0.2 Sodium Level 141 Potassium Level 3.3 Chloride Level 107 Carbon Dioxide Level 21.9 Anion Gap 12 Estimat Glomerular Filtration Rate 98 Human Chorionic Gonadotropin, Quant LESS THAN 1 Valproic Acid (Depakene) Level 4 Result Diagram: 05/19/1712705/19/17127 Caprini VTE Risk Assessment Caprini Risk Assessment Model Point Value = 1 Point Value = 2 Point Value = 3 Point Value = 5 Age 41-60 Minor surgery BMI > 25 kg/m2 Swollen legs Varicose veins or History of unexplained or recurrent spontaneous Oral contraceptives or hormone replacement Sepsis (< 1 month) Serious lung disease, including pneumonia (< 1 month) Abnormal pulmonary function Acute myocardial infarction Congestive heart failure (< 1 month) History of inflammatory bowel disease Medical patient at bed rest Age 61-74 Arthroscopic surgery Major open surgery (> 45 min) Laparoscopic surgery (> 45 min) Malignancy Confined to bed (> 72 hours) Immobilizing plaster cast Central venous access Age >= 75 History of VTE Family history of VTE Factor V Leiden Prothrombin [id number] Lupus anticoagulant Anticardiolipin antibodies Elevated serum homocysteine Heparin-induced thrombocytopenia Other congenital or acquired thrombophilia Stroke (< 1 month) Elective arthroplasty Hip, pelvis, or leg fracture Acute spinal cord injury (< 1 month) Prophylaxis Regimen Total Risk Factor Score Risk Level Prophylaxis Regimen 0-1 Low Early ambulation 2 Moderate Order ONE of the following: *Sequential Compression Device (SCD) *Heparin 5000 units SQ BID 3-4 Higher Order ONE of the following medications: *Heparin 5000 units SQ TID *Enoxaparin/Lovenox 40 mg SQ daily (WT < 150 kg, CrCl > 30 mL/min) *Enoxaparin/Lovenox 30 mg SQ daily (WT < 150 kg, CrCl > 10-29 mL/min) *Enoxaparin/Lovenox 30 mg SQ BID (WT < 150 kg, CrCl > 30 mL/min) AND/OR *Sequential Compression Device (SCD) 5 or more Highest Order ONE of the following medications: *Heparin 5000 units SQ TID (Preferred with Epidurals) *Enoxaparin/Lovenox 40 mg SQ daily (WT < 150 kg, CrCl > 30 mL/min) *Enoxaparin/Lovenox 30 mg SQ daily (WT < 150 kg, CrCl > 10-29 mL/min) *Enoxaparin/Lovenox 30 mg SQ BID (WT < 150 kg, CrCl > 30 mL/min) AND *Sequential Compression Device (SCD) Aruna Cee MD May 19, 2017 09:37
[2017-05-19 11:03] VITALS: BP 98/75
== END 2017-05-19 11:27 | disposition home or self-care (01) ==
LOC: PHED 00:07 → PHEDA 05:57
PROVIDERS: ADMIT Family Medicine; ATTEND Family Medicine
DX: G40.909 Epilepsy, unspecified, not intractable, without status epilepticus (principal); F31.9 Bipolar disorder, unspecified; F41.9 Anxiety disorder, unspecified; F17.200 Nicotine dependence, unspecified, uncomplicated; Z91.14 Patient's other noncompliance with medication regimen; Z79.899 Other long term (current) drug therapy
CPT/HCPCS: 80053; 80164; 84702; 85025; 96360; 96361; 99285; G0378; J7030

== ENCOUNTER 2017-09-15 20:44 | Emergency (ER) | payer MEDICAID, OTHER ==
[~2017-09-15] VITALS: Ht 160 cm; Wt 75.0 kg
[2017-09-15 20:55] VITALS: BP 128/77; PULSE 86; RESP 12; TEMP 98.6; O2SAT 99
--- NOTE | 2017-09-15 21:12 | PD ---
HPI Chief Complaint: Suicide Ideation/Attempt Time Seen by Provider: 21:09 Travel History International Travel<30 days: No Contact w/Intl Traveler<30days: No Traveled to known affect area: No History of Present Illness HPI 21-year-old female presents under [place] act initiated by the [employer]. According to her paperwork, "Diamond made statements about wanting to kill herself if she could not live where she currently does after being advised the current living situation is changing. During this time and initially also burned her leg with a cell pourer." The patient reports that she was upset because she was told that she would be having to move out of her current assisted- living facility, [facility]. She denies any desire to hurt herself or anyone else. She denies any drug use. She admits to drinking pink [place] prior to arrival. She reports that she did use a cell pourer and lightly burned her left thigh with a cell pourer prior to arrival. Per chart review it appears that the patient has not been admitted in the past for evaluation of seizure, intermittent explosive disorder, oppositional defiant disorder, ODD. PFSH Past Medical History Hx Anticoagulant Therapy: No ADHD: Yes Arthritis: No Asthma: No Autoimmune Disease: No Blood Disorders: No Bipolar Disorder: Yes Anxiety: Yes Depression: Yes Heart Rhythm Problems: No Cancer: No Cardiovascular Problems: No High Cholesterol: No Chemotherapy: No Chest Pain: No Congestive Heart Failure: No COPD: No Cerebrovascular Accident: No Diabetes: No Diminished Hearing: No Endocrine: No GERD: No Genitourinary: No Headaches: No Hiatal Hernia: No Immune Disorder: No Kidney Stones: No Musculoskeletal: No Neurologic: Yes (seizure disorder, had a few seizures today) Psychiatric: No (bipolar, depression , adhd) Reproductive: No Respiratory: Yes (ASTHMA) Immunizations Current: No Migraines: No Radiation Therapy: No Renal Failure: No Seizures: Yes (states prior to arrival with ambulance) Sickle Cell Disease: No Sleep Apnea: No Thyroid Disease: No Ulcer: No LMP: "NOT IN A LONG TIME" : 0 Para: 0 Past Surgical History Abdominal Surgery: No AICD: No Appendectomy: No Arteriovenous Shunt: No Cardiac Surgery: No Cholecystectomy: No Ear Surgery: No Endocrine Surgery: No Eye Surgery: No Genitourinary Surgery: No Gynecologic Surgery: Yes Insulin Pump: No Joint Replacement: No Oral Surgery: No Pacemaker: No Thoracic Surgery: No Other Surgery: No Social History Alcohol Use: Yes (OCC) Tobacco Use: Yes (1/2 PPD ) Substance Use: No Allergies-Medications (Allergen,Severity, Reaction): Coded Allergies: No Known Allergies (Verified Allergy, Unknown, 02/18/06) Reported Meds & Prescriptions Reported Meds & Active Scripts Active Depakote DR (Divalproex Sodium) 500 Mg Tabdr 500 Mg PO BID Abilify Maintena Dual Chamber Inj (Aripiprazole) 400 Mg Inj 400 Mg IM Q28D This dose of Abilify Maintena is due on 04/11/2017. Carnitor (Levocarnitine (Metabolic Modif)) 330 Mg Tab 330 Mg PO TID 15 Days Aripiprazole 15 Mg Tab 15 Mg PO DAILY 14 Days Take oral Abilify for 14 days then stop. Be sure to get your next Abilify Maintena injection as ordered. Synthroid (Levothyroxine Sodium) 50 Mcg Tab 50 Mcg PO DAILY@0600 15 Days Lipitor (Atorvastatin Calcium) 10 Mg Tab 10 Mg PO HS 15 Days [Albuterol Hfa Inh] 60 PUFF/8 GM Aero 1 Puff INH Q4H PRN Ativan (Lorazepam) 1 Mg Tab 1 Mg PO Q6H PRN Review of Systems Except as stated in HPI: all other systems reviewed are Neg Physical Exam Narrative GENERAL: Well-developed well-nourished female in no acute distress SKIN: Warm and dry. HEAD: Atraumatic. Normocephalic. EYES: Pupils equal and round. No scleral icterus. No injection or drainage. ENT: No nasal bleeding or discharge. Mucous membranes pink and moist. NECK: Trachea midline. No JVD. CARDIOVASCULAR: Regular rate and rhythm. No murmur appreciated. RESPIRATORY: No accessory muscle use. Clear to auscultation. Breath sounds equal bilaterally. GASTROINTESTINAL: Abdomen soft, non-tender, nondistended. Hepatic and splenic margins not palpable. MUSCULOSKELETAL: No obvious deformities. No clubbing. No cyanosis. No edema. NEUROLOGICAL: Awake and alert. No obvious cranial nerve deficits. Motor grossly within normal limits. Normal speech. PSYCHIATRIC: Appropriate mood and affect; insight and judgment normal. Data Data Last Documented VS Vital Signs Date Time Temp Pulse Resp B/P (MAP) Pulse Ox O2 Delivery O2 Flow Rate FiO2 09/16/17 05:25 80 17 122/58 (79) 100 Room Air 09/15/17 20:55 98.6 Orders Orders Psych Screen (09/15/17 21:01) Complete Blood Count With Diff (09/15/17 21:10) Comprehensive Metabolic Panel (09/15/17 21:10) Thyroid Stimulating Hormone (09/15/17 21:10) Ed Urine Pregnancytest Poc (09/15/17 21:10) Drug Screen, Random Urine (09/15/17 21:10) Alcohol (Ethanol) (09/15/17 21:10) Valproic Acid (Depakene) (09/15/17 21:10) Diet Regular Basic (09/16/17 Breakfast) Restraints Violent (09/16/17 07:55) Lorazepam Inj (Ativan Inj) (09/16/17 08:00) Haloperidol Inj (Haldol Inj) (09/16/17 08:00) Labs Laboratory Tests Test 09/15/17 21:20 09/15/17 21:25 Blood Urea Nitrogen 11 MG/DL Creatinine 0.69 MG/DL Random Glucose 76 MG/DL Total Protein 8.7 GM/DL Albumin 4.0 GM/DL Calcium Level 9.2 MG/DL Alkaline Phosphatase 64 U/L Aspartate Amino Transf (AST/SGOT) 12 U/L Alanine Aminotransferase (ALT/SGPT) 16 U/L Total Bilirubin 0.3 MG/DL Sodium Level 140 MEQ/L Potassium Level 3.5 MEQ/L Chloride Level 104 MEQ/L Carbon Dioxide Level 24.0 MEQ/L Anion Gap 12 MEQ/L Estimat Glomerular Filtration Rate 106 ML/MIN Thyroid Stimulating Hormone 3rd Gen 1.200 uIU/ML Valproic Acid (Depakene) Level 96 MCG/ML Ethyl Alcohol Level LESS THAN 3 MG/DL White Blood Count 7.3 TH/MM3 Red Blood Count 4.82 MIL/MM3 Hemoglobin 15.6 GM/DL Hematocrit 45.2 % Mean Corpuscular Volume 93.7 FL Mean Corpuscular Hemoglobin 32.4 PG Mean Corpuscular Hemoglobin Concent 34.6 % Red Cell Distribution Width 13.8 % Platelet Count 310 TH/MM3 Mean Platelet Volume 9.1 FL Neutrophils (%) (Auto) 56.0 % Lymphocytes (%) (Auto) 38.0 % Monocytes (%) (Auto) 5.0 % Eosinophils (%) (Auto) 0.4 % Basophils (%) (Auto) 0.6 % Neutrophils # (Auto) 4.1 TH/MM3 Lymphocytes # (Auto) 2.8 TH/MM3 Monocytes # (Auto) 0.4 TH/MM3 Eosinophils # (Auto) 0.0 TH/MM3 Basophils # (Auto) 0.0 TH/MM3 CBC Comment DIFF FINAL Differential Comment Urine Opiates Screen NEG Urine Barbiturates Screen NEG Urine Amphetamines Screen NEG Urine Benzodiazepines Screen NEG Urine Cocaine Screen NEG Urine Cannabinoids Screen NEG MDM Medical Decision Making Medical Screen Exam Complete: Yes Emergency Medical Condition: Yes Medical Record Reviewed: Yes Differential Diagnosis Adjustment reaction, acute psychosis, major depressive disorder, depressive disorder not otherwise specified, medication noncompliance Narrative Course 21-year-old female presents under Snyder act for psychiatric evaluation. Mental health screening discussed with the patient. Psychiatric screen ordered. Medically cleared for psychiatric disposition. Diagnosis Primary Impression: Medical clearance for psychiatric admission José Manuel Owen September 15, 2017 21:12
[2017-09-15 21:56] LABS: AUTOMATED NEUTROPHIL # 4.1 TH/MM3 (1.8-7.7); BASOPHIL % 0.6 % (0.0-2.0); EOSINOPHIL % 0.4 % (0.0-4.0); HEMATOCRIT 45.2 % (35.0-46.0); HEMOGLOBIN 15.6 GM/DL (11.6-15.3); LYMPHOCYTE # 2.8 TH/MM3 (1.0-4.8); MEAN CELL VOLUME 93.7 FL (80.0-100.0); MEAN CORPUSCULAR HEMOGLOBIN 32.4 PG (27.0-34.0); MEAN CORPUSCULAR HGB CONC 34.6 % (32.0-36.0); MEAN PLATELET VOLUME 9.1 FL (7.0-11.0); MONOCYTE # 0.4 TH/MM3 (0-0.9); PLATELET COUNT 310 TH/MM3 (150-450); RED BLOOD COUNT 4.82 MIL/MM3 (4.00-5.30); RED CELL DISTRIBUTION WIDTH 13.8 % (11.6-17.2); WHITE BLOOD COUNT 7.3 TH/MM3 (4.0-11.0)
[2017-09-15 23:01] LABS: AST (GOT) 12 U/L (15-37); BLOOD UREA NITROGEN 11 MG/DL (7-18); CALCIUM 9.2 MG/DL (8.5-10.1); CHLORIDE 104 MEQ/L (98-107); CREATININE 0.69 MG/DL (0.50-1.00); GLOMERULAR FILTRATION RATE 106 ML/MIN (>89); GLUCOSE,RANDOM 76 MG/DL (74-106); SODIUM (NA) 140 MEQ/L (136-145)
[2017-09-15 23:13] LABS: ALKALINE PHOSPHATASE 64 U/L (45-117); ALT (GPT) 16 U/L (10-53); TOTAL BILIRUBIN ADULT 0.3 MG/DL (0.2-1.0); TOTAL PROTEIN 8.7 GM/DL (6.4-8.2)
[2017-09-16 05:25] VITALS: BP 122/58; PULSE 80; RESP 17; O2SAT 100
[2017-09-16] MEDS ORDERED: HALOPERIDOL LACTATE 5 MG/ML AMP IM ONE (08:00)
[2017-09-16] MEDS ORDERED: LORazepam 2 MG/ML VIAL IM ONE (08:00)
--- NOTE | 2017-09-16 17:04 | PD ---
Physical Exam Time Seen by Provider: 17:[address] Rosenberg has evaluated the patient, lifted Snyder act and cleared the patient for discharge. Data Data Last Documented VS Vital Signs Date Time Temp Pulse Resp B/P (MAP) Pulse Ox O2 Delivery O2 Flow Rate FiO2 09/16/17 05:25 80 17 122/58 (79) 100 Room Air 09/15/17 20:55 98.6 Orders Orders Psych Screen (09/15/17 21:01) Complete Blood Count With Diff (09/15/17 21:10) Comprehensive Metabolic Panel (09/15/17 21:10) Thyroid Stimulating Hormone (09/15/17 21:10) Ed Urine Pregnancytest Poc (09/15/17 21:10) Drug Screen, Random Urine (09/15/17 21:10) Alcohol (Ethanol) (09/15/17 21:10) Valproic Acid (Depakene) (09/15/17 21:10) Diet Regular Basic (09/16/17 Breakfast) Restraints Violent (09/16/17 07:55) Lorazepam Inj (Ativan Inj) (09/16/17 08:00) Haloperidol Inj (Haldol Inj) (09/16/17 08:00) Diet Regular Basic (09/16/17 Lunch) Diet Regular Basic (09/16/17 Dinner) Labs Laboratory Tests Test 09/15/17 21:20 09/15/17 21:25 Blood Urea Nitrogen 11 MG/DL Creatinine 0.69 MG/DL Random Glucose 76 MG/DL Total Protein 8.7 GM/DL Albumin 4.0 GM/DL Calcium Level 9.2 MG/DL Alkaline Phosphatase 64 U/L Aspartate Amino Transf (AST/SGOT) 12 U/L Alanine Aminotransferase (ALT/SGPT) 16 U/L Total Bilirubin 0.3 MG/DL Sodium Level 140 MEQ/L Potassium Level 3.5 MEQ/L Chloride Level 104 MEQ/L Carbon Dioxide Level 24.0 MEQ/L Anion Gap 12 MEQ/L Estimat Glomerular Filtration Rate 106 ML/MIN Thyroid Stimulating Hormone 3rd Gen 1.200 uIU/ML Valproic Acid (Depakene) Level 96 MCG/ML Ethyl Alcohol Level LESS THAN 3 MG/DL White Blood Count 7.3 TH/MM3 Red Blood Count 4.82 MIL/MM3 Hemoglobin 15.6 GM/DL Hematocrit 45.2 % Mean Corpuscular Volume 93.7 FL Mean Corpuscular Hemoglobin 32.4 PG Mean Corpuscular Hemoglobin Concent 34.6 % Red Cell Distribution Width 13.8 % Platelet Count 310 TH/MM3 Mean Platelet Volume 9.1 FL Neutrophils (%) (Auto) 56.0 % Lymphocytes (%) (Auto) 38.0 % Monocytes (%) (Auto) 5.0 % Eosinophils (%) (Auto) 0.4 % Basophils (%) (Auto) 0.6 % Neutrophils # (Auto) 4.1 TH/MM3 Lymphocytes # (Auto) 2.8 TH/MM3 Monocytes # (Auto) 0.4 TH/MM3 Eosinophils # (Auto) 0.0 TH/MM3 Basophils # (Auto) 0.0 TH/MM3 CBC Comment DIFF FINAL Differential Comment Urine Opiates Screen NEG Urine Barbiturates Screen NEG Urine Amphetamines Screen NEG Urine Benzodiazepines Screen NEG Urine Cocaine Screen NEG Urine Cannabinoids Screen NEG MDM Supervised Visit with HEATH: No Narrative Course Dr. Rosenberg has evaluated the patient, lifted [place] monica and cleared the patient for discharge. Patient contracts safety. Denies suicidal or homicidal ideations. Patient will be provided community resource packet to [facility] for follow-up. Has friends and family for support. Patient was medically cleared by alternate provider prior to psych screening. Patient has been evaluated by psychiatry and and is now cleared for discharge. Diagnosis Primary Impression: Adjustment disorder with disturbance of conduct Referrals: [facility] (Out patient) [facility] Primary Care Physician Psychiatrist [facility] Patient Instructions: Conduct Disorder (ED), General Instructions Additional Instruction: Contract safety to your self and others Follow-up with psychiatry Follow-up with primary care provider Follow-up with David Krueger Return to the emergency department immediately with worsening of symptoms Med/Other Pt SpecificInfo: No Change to Meds, No Meds Exist/No RX given Disposition: 01 DISCHARGE HOME Condition: Stable Melissa Gardiner September 16, 2017 17:04
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
[2017-09-16 18:00] VITALS: BP 124/74; PULSE 105; RESP 20; O2SAT 96
== END 2017-09-16 18:14 | disposition home or self-care (01) ==
LOC: NEPJ 20:44
DX: F43.25 Adjustment disorder with mixed disturbance of emotions and conduct (principal); F17.200 Nicotine dependence, unspecified, uncomplicated; Z79.899 Other long term (current) drug therapy
CPT/HCPCS: 80053; 80164; 80307; 84443; 84703; 85025; 96372; 99284; J1630; J2060

== ENCOUNTER 2017-11-19 23:24 | Inpatient (IN) ==
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
[2017-11-20] MEDS ORDERED: Haloperidol Inj 5 MG/ML Ampul IM ONE (00:11)
[2017-11-20 00:17] LABS: Baso # (Auto) 0.1 th/mm3 (0.0-0.2); Baso % (Auto) 1.2 % (0.0-2.0); Eos # (Auto) 0.2 th/mm3 (0.0-0.4); Eos % (Auto) 2.2 % (0.0-4.0); Hemoglobin 13.7 gm/dL (11.6-15.3); Lymph # (Auto) 3.4 th/mm3 (1.0-4.8); Lymph % (Auto) 41.5 % (9.0-44.0); Mean Corpuscular HGB Conc 34.3 % (32.0-36.0); Mean Corpuscular Hemoglobin 31.4 pg (27.0-34.0); Mean Corpuscular Volume 91.4 fL (80.0-100.0); Mean Platelet Volume 8.6 fL (7.0-11.0); Mono # (Auto) 0.7 th/mm3 (0.0-0.9); Mono % (Auto) 8.3 % (0.0-8.0); Neut # (Auto) 3.8 th/mm3 (1.8-7.7); Neut % (Auto) 46.8 % (16.0-70.0); Platelet Count 238 th/mm3 (150-450); Red Blood Count 4.37 mil/mm3 (4.00-5.30); Red Cell Distribution Width 15.8 % (11.6-17.2); White Blood Count 8.2 th/mm3 (4.0-11.0)
[2017-11-20 01:26] LABS: Amphetamine Screen,Urine Neg (Neg); Barbiturate Screen,Urine Neg (Neg); Cannabinoid Screen,Urine Neg (Neg); Cocaine Screen,Urine Neg (Neg)
[2017-11-20 01:30] LABS: Opiate Screen,Urine Neg (Neg)
[2017-11-20 01:51] LABS: Anion Gap 7 meq/L (5-15); Carbon Dioxide 27.5 meq/L (21.0-32.0); Chloride 107 meq/L (98-107); Potassium 4.3 meq/L (3.5-5.1); Sodium 141 meq/L (136-145)
[2017-11-20 01:52] LABS: Alanine Aminotransferase 12 U/L (10-53); Albumin 2.9 g/dL (3.4-5.0); Alkaline Phosphatase 58 U/L (45-117); Aspartate Aminotransferase 15 U/L (15-37); Blood Urea Nitrogen 22 mg/dL (7-18); Calcium 8.1 mg/dL (8.5-10.1); Glomerular Filtration Rate 77 mL/min (>89); Glucose,Random 85 mg/dL (74-106)
[2017-11-20] MEDS ORDERED: Aluminum/Magnesium/Simethacone Susp 30 ML UDC PO PRN (22:21)
[2017-11-20] MEDS ORDERED: Acetaminophen 325 MG Tablet PO PRN (22:21)
[2017-11-21] MEDS: Divalproex 250 MG DR Tablet PO SCH ×3 (01:40→21:33)
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
--- NOTE | 2017-11-21 14:51 | P.HPPSY ---
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 Express and informed consent means consent voluntarily given in writing, by a competent person, after sufficient explanation and disclosure of the subject matter involved to enable the person to make a knowing and willful decision without any element of force, fraud, deceit, duress, or other form of constraint or coercion. This person is 18 years of age or older, is not now known to be incompetent to consent to treatment with a guardian advocate, and does not have a health care surrogate or proxy currently making medical treatment decisions. I have found this person to be one of the following: [] Competent to provide express and informed consent, as defined above, for voluntary admission to this facility and is competent to provide express and informed consent for treatment. He/she has the consistent capacity to make well reasoned, willful, and knowing decisions concerning his or her medical or mental health treatment. The person fully and consistently understands the purpose of the admission for examination/placement and is fully capable of personally exercising all rights assured [place] [] Incompetent to provide express and informed consent to voluntary admission, and this is incompetent to provide express and informed consent to treatment. The person must be transferred to involuntary status and a petition for a guardian advocate filed with the Circuit Court. [xxx] Refusing to provide express and informed consent to voluntary admission but is competent to provide express and informed consent for treatment. The person must be discharged or transferred to involuntary status. Form shall be completed within 24 hours of a person's arrival at the receiving facility and filed in the clinical record of each person: 1. Admitted on a voluntary basis 2. Permitted to provide express and informed consent to his/her own treatment 3. Allowed to transfer from involuntary to voluntary status 4. Prior to permitting a person to consent to his or her own treatment after having been previously found incompetent to consent to treatment. History of Present Illness Capacity: Has capacity History of Present Illness: Patient is a 21-year-old woman, single, domiciled, with a past psychiatric history of bipolar disorder, ODD, borderline intellectual dysfunctio , with multiple psychiatric admissions (last at [facility] in April 2017), previous suicide attempts, with no history of substance use, with a past medical history significant for seizure disorder, who was brought in to the ED under [place] act after patient had threatened to kill herself and had put knife to her throat which patient was admitted to the inpatient psychiatry for further evaluation and management. As per chart in the ED: She apparently lives in a fdc, a caregiver saw her with a knife to her phone throat stating that she was going to kill herself. She is brought in by 3 officers, she apparently slipped the handcuffs on the way in and had to be restrained non- violently. Patient was noted to have received ETO in the ER prior to transfer to the inpatient unit. Patient was seen with counselor and nurse today noted B , cooperative and somewhat tearful during interview. Patient states that she lives in an apartment and that her roommate had called police because she got into a disagreement and had left the home to smoke cigarettes and when she returned police had arrived to bring her to the hospital. Patient states having slept out of her handcuffs put that she did comply with directions from the police. Patient mentions having had picked up a knife but that she had put it back down but did not describe interactions with it as stated in the [place] act. Patient states it was all a misunderstanding and that she did not not have any intention to hurt herself. Patient this time states that she is feeling "fine" denies any SI, HI, AVH or delusions. Past psychiatric history: Previous psychiatric diagnosis of bipolar disorder, ODD, multiple psychiatric admissions, previous suicide attempts, has outpatient mental health follow-up at [facility], recently received Abilify maintain 2 days ago (dose unspecified), Depakote, quetiapine and Cogentin. Substance use history: Tobacco use, denies any alcohol or drug use. Past medical history: Seizure disorder Allergies: NKDA Social history: Single, domiciled in fdc, unemployed. - Inpatient Certification I certify that the inpatient services were ordered in accordance with Medicare regulations governing the order. This includes certification that hospital inpatient services are reasonable and necessary and in the case of services not specified as inpatient-only under 42 CFR 419.22(n), that they are appropriately provided as inpatient services in accordance to with the 2-midnight benchmark under 43 CFR 412.3(e) I certify that inpatient psychiatric hospital services are medically necessary. Evaluation and treatment and/or diagnostic testing are expected to improve the patient's condition. The patient needs on a daily basis, active treatment furnished directly by or requiring the supervision of inpatient psychiatric facility personnel. Review of Systems All other systems reviewed negative except as stated in HPI PMFSH - History History Provided By: Patient - Medical History Medical History: Medical History (Last Updated 11/19/17 @ 23:58 by Paz Sheffield) Anxiety Asthma Bipolar 1 disorder - Surgical History Surgical History: Surgical History (Last Updated 11/19/17 @ 23:58 by Paz Sheffield) No history of previous surgery - Tobacco History Second Hand Smoke Exposure: Yes Tobacco Use In Past 30 Days: Yes Smoking Status: Current every day smoker Tobacco Type: Cigarettes - Alcohol History How Often Do You Have a Drink Containing Alcohol: Monthly or less - Substance Use History Substance History: No History of Abuse - Travel History Recent Travel in the [place] Within the Last 8 Weeks: No Recent Travel Out of the Country Within the Last 8 Weeks: No - Immunization History Tetanus Immunization: Unsure Hx Influenza Vaccine This Season: Unable to Assess Quality Measures - Psychiatric History Violence risk to others in the last 6 months: Low Violence risk to self in the last 6 months: Elevated due to recent suicidal statements - Patient Strengths Patient's strengths (minimum of 2): Verbal and communicative Medications and Allergies Active Medications: Active Medications Acetaminophen (Tylenol) 650 mg PO Q4H PRN PRN Reason: Pain 1-5 or Temp >101F Al Hydrox/Mg Hydrox/Simethicone (Mag-Al Plus Susp Liq) 30 ml PO Q6H PRN PRN Reason: DYSPEPSIA Al Hydroxide/Mg Hydroxide (Milk Of Magnesia Liq) 30 ml PO Q12H PRN PRN Reason: Mild Constipation Benztropine Mesylate (Cogentin) 1 mg PO BID RAIN Last Admin: 11/21/17 09:46 Dose: 1 mg Diphenhydramine HCl (Benadryl) 50 mg PO Q6H PRN PRN Reason: For mild anxiety and/or EPS Diphenhydramine HCl (Benadryl) 50 mg PO HS PRN PRN Reason: INSOMNIA Diphenhydramine HCl (Benadryl Inj) 50 mg IM Q6H PRN PRN Reason: For mild anxiety and/or EPS Diphenhydramine HCl (Benadryl Inj) 50 mg IM HS PRN PRN Reason: INSOMNIA Divalproex Sodium (Depakote Dr) 250 mg PO BID [facility] Last Admin: 11/21/17 09:42 Dose: 250 mg Lorazepam (Ativan) 1 mg PO Q6H PRN PRN Reason: MODERATE TO SEVERE ANXIETY Lorazepam (Ativan Inj) 1 mg IM Q6H PRN PRN Reason: MODERATE TO SEVERE ANXIETY Quetiapine Fumarate (Seroquel) 50 mg PO HS [facility] Allergies Allergy/AdvReac Type Severity Reaction Status Date / Time No Known Allergies Allergy Unverified 11/19/17 23:45 Home Medications Medication Instructions Recorded Confirmed Type aripiprazole [Abilify Maintena] 400 IM PER PKG DIR 11/20/17 History benztropine 1 mg PO BID 11/20/17 11/20/17 History divalproex [Depakote] 250 mg PO BID 11/20/17 11/20/17 History quetiapine [Seroquel] 50 PO BID 11/20/17 History Results - Labs CBC & Chem 7: 11/19/17 23:55 11/20/17 01:00 Exam Vital signs: Vital Signs 11/20/17 23:01 11/21/17 06:45 Temperature 97.2 F L 98.2 F Pulse Rate 96 H 91 H Respiratory Rate 20 18 Blood Pressure 133/73 101/52 L Pulse Oximetry 98 96 Intake & Output 11/20/17 11/21/17 11/21/17 18:59 06:59 18:59 Weight 110.6 kg Other: Weight On Admission 110.6 kg Narrative: Patient not noted to be in acute distress, no gross motor abnormalities, no tremors or EPS, no noted psychomotor retardation or agitation. Mental Status Examination Appearance: Appropriate Consciousness: Alert Orientation: Person, Place, Date/Time Motor Activity: Normal gait Speech: Unremarkable Language: Adequate Fund of Knowledge: Inadequate Attention and Concentration: Adequate Memory: Unremarkable Mood: Anxious Affect: Anxious, Other (Tearful) Thought Process & Associations: Intact, Other ([place]) Thought Content: Appropriate Hallucination Type: None Delusion Type: None Suicidal Ideation: No Suicidal Plan: No Suicidal Intention: No Homicidal Ideation: No Homicidal Plan: No Homicidal Intention: No Insight: Poor Judgment: Poor Assessment and Plan - Assessment (1) Adjustment disorder with mixed disturbance of emotions and conduct Code(s): F43.25 - Adjustment disorder with mixed disturbance of emotions and conduct Status: Acute - Plan Plan: Patient is a 31-year-old woman bipolar disorder, ODD, borderline intellectual functioning previous psychiatric admissions previous suicide attempts, was brought to the ED after argument with caregiver and having to kill herself after putting a knife to her throat which patient was admitted to the inpatient psychiatry for further evaluation and management. Patient denying any suicidality and minimizing recent events described in [place] act. Patient refuses for voluntary admission had petition for involuntary hospitalization started, second opinion requested. Patient has capacity to consent for treatment. Patient will be admitted for observation and for safety , patient will be continued on current psychotropic medication regimen. We will continue to monitor mood and behavior. Social work intervention for psychosocial assessment. Discharge planning a progress. Justification for Continued Inpatient Stay: At risk of further decompensation a lower level of care.
[2017-11-21] MEDS: QUEtiapine 25 MG Tablet PO SCH ×2 (21:20→21:33)
[2017-11-21] MEDS: LORazepam 1 MG Tablet PO PRN (21:35)
[2017-11-22] MEDS: Divalproex 250 MG DR Tablet PO SCH ×2 (08:18→20:23)
--- NOTE | 2017-11-22 12:05 | P.PNPSY ---
Subjective Chief Complaint: Adjustment Disorder with mixed disturbance of mood and conduct Remarks: Chart reviewed and discussed with nursing staff. Rounded on patient with SATHYA Chatman. Patient is very agitated and demanding food. She is standing the refrigerator and banging on the door. She was easily redirected. Patient states that at home she eats all the snacks with a month in 1 day. She endorses that her appetite has increased tremendously and is out of control. She is medication compliant. She is sleeping well and participating in activities. Overall her behavior is cooperative except for her desire to eat continuously. Review of Systems All other systems reviewed negative except as stated in HPI Mental Status Examination Appearance: Appropriate Consciousness: Alert Orientation: Person, Place (At least) Motor Activity: Normal gait Speech: Unremarkable Language: Adequate Fund of Knowledge: Inadequate Attention and Concentration: Adequate Memory: Unremarkable (Grossly intact on clinical exam) Mood: Other (Denies issues with mood) Affect: Anxious Thought Process & Associations: Intact Thought Content: Appropriate Hallucination Type: None Delusion Type: None Suicidal Ideation: No (Unclear whether patient is reliable to contract for safety) Suicidal Plan: No Suicidal Intention: No Homicidal Ideation: No Homicidal Plan: No Homicidal Intention: No Insight: Poor Judgment: Poor Assessment and Plan - Assessment (1) Adjustment disorder with mixed disturbance of emotions and conduct Code(s): F43.25 - Adjustment disorder with mixed disturbance of emotions and conduct Status: Acute - Plan Plan: Continue to monitor for any genuine impairments in safety and /or any behavioral outbursts. Once stable can be followed on an outpatient basis by David Sharma. Discharge planning in progress. Patient has a stable residence at time of discharge. Justification for Continued Inpatient Stay: Placing patient in a lower level care may result in decompensation. Discharge Planning: Discharge planning in progress.
[2017-11-22] MEDS: Ibuprofen 600 MG Tablet PO SCH (15:47)
[2017-11-22] MEDS: QUEtiapine 25 MG Tablet PO SCH (20:22)
[2017-11-23] MEDS: Divalproex 250 MG DR Tablet PO SCH ×2 (09:25→21:03)
--- NOTE | 2017-11-23 13:32 | P.PNPSY ---
Subjective Chief Complaint: Adjustment Disorder with mixed disturbance of mood and conduct Remarks: Reviewed electronic medical records and discussed case with staff. Follow-up was conducted in the hallway with nurse present. Her nurse advises that patient has been attention seeking and intrusive however, she is also redirectable. Patient reports that she slept well and has a good appetite. She states, "I am going home tomorrow". Patient continues to be intrusive with other patients. Have received multiple complaints from the other patients about her behavior. She does become upset when I explained I have to move on stating, "nobody wants to talk to me". This is in the context of patient wanting to tell me about her new apartment. She no indication of internal stimulation or thought blocking. Her mood is good and her affect is euthymic. She remains childlike. Mental Status Examination Appearance: Appropriate Consciousness: Alert Orientation: Person, Place (At least) Motor Activity: Normal gait Speech: Unremarkable Language: Adequate Fund of Knowledge: Inadequate Attention and Concentration: Adequate Memory: Unremarkable (Grossly intact on clinical exam) Mood: Other (Denies issues with mood) Affect: Anxious Thought Process & Associations: Intact Thought Content: Appropriate Hallucination Type: None Delusion Type: None Suicidal Ideation: No (Unclear whether patient is reliable to contract for safety) Suicidal Plan: No Suicidal Intention: No Homicidal Ideation: No Homicidal Plan: No Homicidal Intention: No Insight: Poor Judgment: Poor Assessment and Plan - Assessment (1) Adjustment disorder with mixed disturbance of emotions and conduct Code(s): F43.25 - Adjustment disorder with mixed disturbance of emotions and conduct Status: Acute - Plan Plan: Patient will be reevaluated tomorrow by the attending psychiatrist. Continue with current treatment plan. Justification for Continued Inpatient Stay: Moving this patient to a less restrictive environment would likely result in decompensation.
[2017-11-23] MEDS: QUEtiapine 25 MG Tablet PO SCH (21:03)
[2017-11-23] MEDS: Ibuprofen 600 MG Tablet PO SCH (23:13)
[2017-11-24] MEDS: Divalproex 250 MG DR Tablet PO SCH ×2 (09:03→20:34)
[2017-11-24] MEDS: Ibuprofen 600 MG Tablet PO SCH (15:17)
[2017-11-24] MEDS: LORazepam 1 MG Tablet PO PRN (15:18)
--- NOTE | 2017-11-24 17:43 | P.PNPSY ---
Subjective Chief Complaint: Adjustment Disorder with mixed disturbance of mood and conduct Remarks: Patient seen for follow-up, chart reviewed. Discussion with nursing staff reported that the patient with no behavioral disturbances, compliant with treatment and cooperative with staff. Patient was found in the room noted B, cooperative. Patient noted to be somewhat upset that she was not being discharged today as facility where she was living had endorsed the possibility of patient not to be allowed to return back to reside there which patient had difficulty understanding. Patient believes that because she had paid rent she has a right to return there but had to be redirected and explained that patient needed a confirmation from the facility to be over return to her residence. Treatment team later was able to confirm with the facility of patient being allowed to return there and will be plan for discharge tomorrow back to his residential facility. Review of Systems All other systems reviewed negative except as stated in HPI Mental Status Examination Appearance: Appropriate Consciousness: Alert Orientation: Person, Place (At least) Motor Activity: Normal gait Speech: Unremarkable Language: Adequate Fund of Knowledge: Inadequate Attention and Concentration: Adequate Memory: Unremarkable (Grossly intact on clinical exam) Mood: Other (Denies issues with mood) Affect: Anxious Thought Process & Associations: Intact Thought Content: Appropriate Hallucination Type: None Delusion Type: None Suicidal Ideation: No (Unclear whether patient is reliable to contract for safety) Suicidal Plan: No Suicidal Intention: No Homicidal Ideation: No Homicidal Plan: No Homicidal Intention: No Insight: Poor Judgment: Poor Assessment and Plan - Assessment (1) Adjustment disorder with mixed disturbance of emotions and conduct Code(s): F43.25 - Adjustment disorder with mixed disturbance of emotions and conduct Status: Acute - Plan Plan: Patient this time with no behavioral disturbances, has been compliant with treatment, initially upset that she was unable to be discharged to facility who had reported patient not to be able to return there but later in the day had agreed to have patient return there tomorrow upon discharge. We will continue to monitor mood and behavior. Discharge planning in progress. Justification for Continued Inpatient Stay: At risk for further decompensation if at lower level of care.
[2017-11-24] MEDS: QUEtiapine 25 MG Tablet PO SCH (20:34)
[2017-11-25] MEDS: Ibuprofen 600 MG Tablet PO SCH (00:16)
[2017-11-25] MEDS: Divalproex 250 MG DR Tablet PO SCH (08:46)
--- NOTE | 2017-11-25 20:47 | P.DSPSY ---
Psychiatry Discharge Summary Inpatient Psychiatric care?: Yes Advance Directives: No Mental Health Advance Directive: No Health Care Proxy: No - Admission Admission Date: November 20, 2017 20:22 - Admission Diagnosis (1) Adjustment disorder with mixed disturbance of emotions and conduct Code(s): F43.25 - Adjustment disorder with mixed disturbance of emotions and conduct Brief History: Patient is a 21-year-old woman, single, domiciled, with a past psychiatric history of bipolar disorder, ODD, borderline intellectual dysfunctio , with multiple psychiatric admissions (last at [facility] in April 2017), previous suicide attempts, with no history of substance use, with a past medical history significant for seizure disorder, who was brought in to the ED under Snyder act after patient had threatened to kill herself and had put knife to her throat which patient was admitted to the inpatient psychiatry for further evaluation and management. As per chart in the ED: She apparently lives in a halfway, a caregiver saw her with a knife to her phone throat stating that she was going to kill herself. She is brought in by 3 officers, she apparently slipped the handcuffs on the way in and had to be restrained non- violently. Patient was noted to have received ETO in the ER prior to transfer to the inpatient unit. Patient was seen with counselor and nurse today noted B , cooperative and somewhat tearful during interview. Patient states that she lives in an apartment and that her roommate had called police because she got into a disagreement and had left the home to smoke cigarettes and when she returned police had arrived to bring her to the hospital. Patient states having slept out of her handcuffs put that she did comply with directions from the police. Patient mentions having had picked up a knife but that she had put it back down but did not describe interactions with it as stated in the Snyder act. Patient states it was all a misunderstanding and that she did not not have any intention to hurt herself. Patient this time states that she is feeling "fine" denies any SI, HI, AVH or delusions. Past psychiatric history: Previous psychiatric diagnosis of bipolar disorder, ODD, multiple psychiatric admissions, previous suicide attempts, has outpatient mental health follow-up at [facility], recently received Abilify maintain 2 days ago (dose unspecified), Depakote, quetiapine and Cogentin. Substance use history: Tobacco use, denies any alcohol or drug use. Past medical history: Seizure disorder Allergies: NKDA Social history: Single, domiciled in halfway, unemployed. Tobacco Use In Past 30 Days: Yes How Often Do You Have a Drink Containing Alcohol: Monthly or less Hospital Course: Patient is a 21-year-old woman, single, domiciled, with a past psychiatric history of bipolar disorder, ODD, borderline intellectual dysfunctio , with multiple psychiatric admissions (last at [facility] in April 2017), previous suicide attempts, with no history of substance use, with a past medical history significant for seizure disorder, who was brought in to the ED under Snyder act after patient had threatened to kill herself and had put knife to her throat which patient was admitted to the inpatient psychiatry for further evaluation and management. Patient was continued on Depakote 250mg BID , benztropine 1mg BID, quetiapine 50mg HS, which she tolerated well with no notable adverse drug reactions. Patient was noted with improvement in mood, noted to have denied having any suicidal ideations since admission. She was observed by staff to not have had any behavioral disturbances, not having made any suicidal or homicidal statements and maintained stable mood through admission and was noted to participate with staff adequately. Patient was noted to participate in self care, engaging with staff and maintaining adequate hygiene. Patient agreed to meet with child care attendant and residence staff to comply with rules and guidelines of the residence and continue with outpatient follow up. Treatment team was able to set up outpatient follow up appointments which the patient can continue current medication regimen. Upon discharge patient stated that she was feeling good, reported feeling well with the treatment, as well as motivation to continue recommendations and denied any SI, HI, perceptual disturbances or delusions. Weighing the acute, chronic, and protective factors and based on the available evidence, I supervisor cab to a reasonable degree of medical certainty that the patient is at low imminent risk of harm to self or others from a mental illness as defined under the Snyder act and level of function is adequate as observed on the unit for planned level of outpatient care. Patient was counseled regarding warning signs for need to return to the psychiatric emergency room as part of a general safety plan. Patient advised to call 911 or go nearest ED in case of emergency. Patient agreed with plan. - Discharge Discharge Date: 11/25/17 - Discharge Diagnosis (1) Adjustment disorder with mixed disturbance of emotions and conduct Code(s): F43.25 - Adjustment disorder with mixed disturbance of emotions and conduct Status: Acute Discharge Disposition: Residential Prison - Discharge Instructions Discharge Diet: Regular Diet Activities You Can Perform: Regular- No Restrictions - Discharge Time > 30 minutes Mental Status Examination Appearance: Appropriate Consciousness: Alert Orientation: Person, Place, Date/Time Motor Activity: Normal gait Speech: Unremarkable Language: Adequate Fund of Knowledge: Inadequate Attention and Concentration: Adequate Memory: Unremarkable Mood: Other ("fine") Affect: Appropriate Thought Process & Associations: Intact Thought Content: Appropriate Hallucination Type: None Delusion Type: None Suicidal Ideation: No Suicidal Plan: No Suicidal Intention: No Homicidal Ideation: No Homicidal Plan: No Homicidal Intention: No Insight: Fair Judgment: Impulsive Discharge/Advance Care Plan - Results Vital Signs: Last Vital Signs Temp 98.1 F 11/25/17 05:53 Pulse 99 H 11/25/17 05:53 Resp 21 11/25/17 05:53 BP 118/72 11/25/17 05:53 Pulse Ox 95 11/25/17 05:53 Lab Results: Laboratory Results TSH 7.630 uIU/mL (0.358-3.740) H 11/20/17 01:00 Free T4 1.06 ng/dL (0.76-1.46) 11/20/17 01:00 Valproic Acid 66 mcg/mL (50-100) 11/19/17 23:55 Summary of Procedures: none Pending Results: None - Medications Number of antipsychotic medications at discharge: 1 - Discharge Care Plan Goals to Promote Your Health: * To prevent worsening of your condition and complications * To maintain your health at the optimal level Directions to Meet Your Goals: Take your medications as prescribed Follow your dietary instruction Follow activity as directed Keep your appointments as scheduled Take your immunizations and boosters as scheduled If your symptoms worsen call your PCP, if no PCP go to Urgent Care Center or Emergency Room For 25/11 questions related to your inpatient stay or results of tests pending at discharge, please contact Dr. Travis Valentino MD at Smoking is Dangerous to Your Health. Avoid second hand smoking
== END 2017-11-25 14:40 | disposition home or self-care (01) ==
LOC: NEPD 23:24 → NEDA 11-20 20:22 → H270 11-20 20:41 → H260 11-21 10:11
PROVIDERS: ADMIT Student in an Organized Health Care Education/Training Program; ATTEND Student in an Organized Health Care Education/Training Program

== ENCOUNTER 2018-02-17 15:07 | Inpatient (IN) ==
[2018-02-17] MEDS ORDERED: Haloperidol Inj 5 MG/ML Ampul IM ONE (15:43)
--- NOTE | 2018-02-17 16:10 | ED ---
HPI General Chief complaint: Psychiatric Symptoms Stated complaint: Psych Eval/DBPD Time Seen by Provider: 02/17/18 15:43 History of Present Illness HPI Narrative: Patient 22-year-old female multiple presentations to this emergency department for psychiatric evaluation. She is here on a Snyder act today. Apparently she was confused wandering in and out of some places of business. Patient is alert and awake and follows commands but she is either reluctant or unable to speak to me currently. She does with repetitive questioning complain of some right antecubital pain. She states "the vein was there". She was actually just here and discharged yesterday for similar, history limited by the patient's psychiatric condition and the fact that she is reluctant to talk to me. Nursing also noticed that she was screaming at the top of her lungs when she first arrived. Home Medications Medication Instructions Recorded Confirmed benztropine 1 mg PO BID 12/27/17 02/16/18 buspirone 10 mg PO TID 12/27/17 02/16/18 divalproex [Depakote] 750 mg PO BID 12/27/17 02/16/18 hydroxyzine HCl 25 mg PO TID 12/27/17 02/16/18 quetiapine 50 mg PO HS 12/27/17 02/16/18 simvastatin 20 mg PO QPM 12/27/17 02/16/18 valacyclovir 500 mg PO DAILY 12/27/17 02/16/18 Allergies Allergy/AdvReac Type Severity Reaction Status Date / Time No Known Allergies Allergy Verified 02/17/18 15:15 Review of Systems ROS Unobtainable ROS Unobtainable: unobtainable due to mental condition PMFSH Social History Social History Substance History: Unable to Obtain Second Hand Smoke Exposure: Yes Smoking Status: Unknown if ever smoked Tobacco Type: Cigarettes How Often Do You Have a Drink Containing Alcohol: Unable to Obtain Exam Narrative Exam Narrative: Exam performed with female electrical sign servicer present all times GENERAL: Well-developed well-nourished no obvious distress SKIN: Focused skin assessment warm/dry. Some mild skin irritation at the site of prior IV start probably consistent with a mild reaction to tape. HEAD: Atraumatic. Normocephalic. EYES: Pupils equal and round. No scleral icterus. No injection or drainage. ENT: No nasal bleeding or discharge. Mucous membranes pink and moist. NECK: Trachea midline. No JVD. CARDIOVASCULAR: Regular rate and rhythm. No murmur appreciated. RESPIRATORY: No accessory muscle use. Clear to auscultation. Breath sounds equal bilaterally. GASTROINTESTINAL: Abdomen soft, non-tender, nondistended. Hepatic and splenic margins not palpable. MUSCULOSKELETAL: No obvious deformities. No clubbing. No cyanosis. No edema. NEUROLOGICAL: Awake and alert. No obvious cranial nerve deficits. Motor grossly within normal limits. Normal speech. PSYCHIATRIC: Withdrawn and flat affect, will not describe mood. Medical Decision Making MDM Narrative Medical decision making narrative: Patient room to the emergency department, initially nursing was concerned because patient now screaming at the top of her lungs, Ativan and Haldol ordered and then I will patient. She not yet received his medications now calm and cooperative but is withdrawn and does not speak. Previous records reviewed, she had multiple admissions to [facility] in the psychiatric padron for this. At this time she just had blood work yesterday do not see utility of repeating it. She is medically cleared for psychiatric evaluation. Medical Screen Exam Complete: Yes Emergency Medical Condition: Yes Discharge Plan Discharge Disposition Patient Disposition: 30 Still Patient Discharge Condition Condition: Stable Physicians Team ED Provider: Markus Bangura Primary Care Provider: UNKNOWN, Rxs /Orders / Referrals /Forms Prescriptions: No Action divalproex [Depakote] 125 mg Tablet,Delayed Release (Dr/Ec) 750 mg PO BID RF: 0 valacyclovir 500 mg Tablet 500 mg PO DAILY RF: 0 simvastatin 20 mg Tablet 20 mg PO QPM RF: 0 buspirone 10 mg Tablet 10 mg PO TID RF: 0 benztropine 1 mg Tablet 1 mg PO BID RF: 0 hydroxyzine HCl 25 mg Tablet 25 mg PO TID RF: 0 quetiapine 50 mg Tablet 50 mg PO HS RF: 0 Status ED Status: Medically Cleared
--- NOTE | 2018-02-17 16:18 | P.HPPSY ---
Provisional Diagnosis Admission Date: February 17, 2018 15:07 [place] I.: Unspecified admission, Bipolar disorder, intellectual disability [place] II.: BPD, ID Competence Certification of Person's Competence To Provide Express and Informed Consent I have personally examined Diamond Conrad, a [facility], February 17, 2018 1606. Express and informed consent means consent voluntarily given in writing, by a competent person, after sufficient explanation and disclosure of the subject matter involved to enable the person to make a knowing and willful decision without any element of force, fraud, deceit, duress, or other form of constraint or coercion. This person is 18 years of age or older, is not now known to be incompetent to consent to treatment with a guardian advocate, and does not have a health care surrogate or proxy currently making medical treatment decisions. I have found this person to be one of the following: [] Competent to provide express and informed consent, as defined above, for voluntary admission to this facility and is competent to provide express and informed consent for treatment. He/she has the consistent capacity to make well reasoned, willful, and knowing decisions concerning his or her medical or mental health treatment. The person fully and consistently understands the purpose of the admission for examination/placement and is fully capable of personally exercising all rights assured [place] Incompetent to provide express and informed consent to voluntary admission, and this is incompetent to provide express and informed consent to treatment. The person must be transferred to involuntary status and a petition for a guardian advocate filed with the Circuit Court. [x] Refusing to provide express and informed consent to voluntary admission but is competent to provide express and informed consent for treatment. The person must be discharged or transferred to involuntary status. Form shall be completed within 24 hours of a person's arrival at the receiving facility and filed in the clinical record of each person: 1. Admitted on a voluntary basis 2. Permitted to provide express and informed consent to his/her own treatment 3. Allowed to transfer from involuntary to voluntary status 4. Prior to permitting a person to consent to his or her own treatment after having been previously found incompetent to consent to treatment. History of Present Illness Capacity: Has capacity History of Present Illness: The patient is a 22-year-old woman, well known by department, she was DC this morning form ER, domiciled with friends, unemployed, supported by [facility], with a psychiatric history of intellectual disability, bipolar disorder, borderline personality disorder, multiple psychiatric hospitalizations, multiple suicidal attempts, self-cutting behavior, outpatient care in [facility], well known by the service, with a medical history of seizures, she is on Seroquel, BuSpar, benztropine(unknown doses), who presents now again today under BA by [employer]TY due to paranoia and erratic behavior in the streets. Apparently she was reporting to the police that people were following her. She was seen by me in the main ED, now uncooperative, stating she does not trust me and she wont Answer my questions. She seems to be internally stimulated and paranoid. As per nurses in the ER she has been talking to self and accusing staff of hiding information form her. PPHx: psychiatric history of intellectual disability, bipolar disorder, borderline personality disorder, multiple psychiatric hospitalizations, multiple suicidal attempts, self-cutting behavior, outpatient care in [facility], well known by the service, with a medical history of seizures, who presents under Snyder act. she is on Seroquel, BuSpar, benztropine PMHx: Seizures, and Depakote 500 mg twice daily Substance Hx : Occasional use of marijuana Social Hx: Patient was born and raised in [place], she lives in [facility] with friends, unemployed, supported by [facility], highest level of education is high risk Review of Systems All other systems reviewed negative except as stated in HPI Psychiatric: Reports irritability, Reports mood swings, Reports paranoia PMFSH - History History Provided By: Medical Record - Medical History Medical History: Medical History (Last Reviewed 02/16/18 @ 21:35 by Corrina Holder RN) Bipolar disorder (Acute) ADHD Anxiety Asthma Bipolar 1 disorder Depression Seizure - Surgical History Surgical History: Surgical History (Last Reviewed 02/16/18 @ 21:35 by Corrina Holder RN) No history of previous surgery (Acute) No history of previous surgery - Tobacco History Second Hand Smoke Exposure: Yes Smoking Status: Unknown if ever smoked Tobacco Type: Cigarettes - Alcohol History How Often Do You Have a Drink Containing Alcohol: Unable to Obtain - Substance Use History Substance History: Unable to Obtain Medications and Allergies Allergies Allergy/AdvReac Type Severity Reaction Status Date / Time No Known Allergies Allergy Verified 02/17/18 15:15 Home Medications Medication Instructions Recorded Confirmed Type benztropine 1 mg PO BID 12/27/17 02/16/18 History buspirone 10 mg PO TID 12/27/17 02/16/18 History divalproex [Depakote] 750 mg PO BID 12/27/17 02/16/18 History hydroxyzine HCl 25 mg PO TID 12/27/17 02/16/18 History quetiapine 50 mg PO HS 12/27/17 02/16/18 History simvastatin 20 mg PO QPM 12/27/17 02/16/18 History valacyclovir 500 mg PO DAILY 12/27/17 02/16/18 History Results - Labs CBC & Chem 7: 02/18/18 06:59 Mental Status Examination Appearance: Appropriate Consciousness: Alert Orientation: x4 Motor Activity: Normal gait Speech: Unremarkable Language: Adequate Fund of Knowledge: Adequate Attention and Concentration: Adequate Memory: Unremarkable Mood: Angry Affect: Irritable Thought Process & Associations: Loose associations Thought Content: Bizarre thinking, Thought blocking Hallucination Type: None Delusion Type: Bizarre, Paranoid Suicidal Ideation: No Suicidal Plan: No Suicidal Intention: No Homicidal Ideation: No Homicidal Plan: No Homicidal Intention: No Insight: Poor Judgment: Poor Assessment and Plan - Assessment (1) Unspecified psychosis Code(s): F29 - Unspecified psychosis not due to a substance or known physiological condition Status: Acute - Plan Plan: Estimated LOS: [] days On psychiatric evaluation today the patient presents paranoid, internally preoccupied, oppositional, irritable, Refusing to talk to me. To be admitted in 2700 due to acute psychosis Will start Seroquel 50 mg bid for psychosis and Depakote 500 mg bid for Bipolar/ seizures Collateral form [facility] to get med [facility] intervention for psychosocial assessment, collateral, individual and group therapy Order Depakote level, EKG, Utox Justification for Continued Inpatient Stay: To be admitted
[2018-02-17] MEDS ORDERED: Aluminum/Magnesium/Simethacone Susp 30 ML UDC PO PRN (16:19)
[2018-02-17] MEDS ORDERED: Bisacodyl 10 MG Supp RECTAL PRN (16:19)
[2018-02-17] MEDS: QUEtiapine 25 MG Tablet PO SCH (21:09)
[2018-02-17] MEDS: Senna/Docusate Sodium 8.6/50 MG Tablet PO SCH (21:09)
[2018-02-17] MEDS: Divalproex 500 MG DR Tablet PO SCH (21:09)
[2018-02-18 08:09] LABS: Anion Gap 11 meq/L (5-15); Blood Urea Nitrogen 15 mg/dL (7-18); Calcium 9.2 mg/dL (8.5-10.1); Carbon Dioxide 23.7 meq/L (21.0-32.0); Chloride 106 meq/L (98-107); Glomerular Filtration Rate Greater Than 89 mL/min (>89); Glucose,Random 75 mg/dL (74-106); Potassium 3.5 meq/L (3.5-5.1); Sodium 141 meq/L (136-145)
[2018-02-18 08:10] LABS: Cholesterol 152 mg/dL (120-200); Triglycerides 126 mg/dL (42-150)
[2018-02-18 08:12] LABS: Chol/HDL Ratio 5.15 Ratio; HDL Cholesterol 29.5 mg/dL (40.0-60.0); LDL Cholesterol,Calculated 97 mg/dL (0-99)
--- NOTE | 2018-02-18 10:34 | P.CONPSY ---
Provisional Diagnosis Admission Date: February 17, 2018 16:22 [place] I.: 1. Unspecified psychosis 2. Cannabis abuse [place] II.: 1. Borderline personality disorder 2. Intellectual disability History of Present Illness Service: Psychiatry Consult date: 02/18/18 Requesting Physician: Rainer Lea Reason for Consult: Second opinion for involuntary psychiatric hospitalization Primary Care Provider: UNKNOWN History of Present Illness: From Dr. Lea's H&P: The patient is a 22-year-old woman, well known by department, she was DC this morning form ER, domiciled with friends, unemployed, supported by [facility], with a psychiatric history of intellectual disability, bipolar disorder, borderline personality disorder, multiple psychiatric hospitalizations, multiple suicidal attempts, self-cutting behavior, outpatient care in [facility], well known by the service, with a medical history of seizures, she is on Seroquel, BuSpar, benztropine(unknown doses), who presents now again today under BA by DOTTY due to paranoia and erratic behavior in the streets. Apparently she was reporting to the police that people were following her. She was seen by me in the main ED, now uncooperative, stating she does not trust me and she wont Answer my questions. She seems to be internally stimulated and paranoid. per nurses in the ER she has been talking to self and accusing staff of hiding information form her. PPHx: psychiatric history of intellectual disability, bipolar disorder, borderline personality disorder, multiple psychiatric hospitalizations, multiple suicidal attempts, self-cutting behavior, outpatient care in [facility], well known by the service, with a medical history of seizures, who presents under Snyder act. she is on Seroquel, BuSpar, benztropine PMHx: Seizures, and Depakote 500 mg twice daily Substance Hx : Occasional use of marijuana Social Hx: Patient was born and raised in [place], she lives in [facility] with friends, unemployed, supported by [facility], highest level of education is high risk On my examination today, 02/18: Patient seen and examined with nurse. Chart reviewed. Case discussed with nursing staff. On my examination today, the patient presents as childlike and dramatic. Intellectual disability is suspected. Patient also has a history of borderline personality disorder. Patient tells me "I can hear a demon's voice. It's getting louder and louder." She reports that she has been hearing this voice "since yesterday when she cast that spell out. I know its name [i.e. the demon]: Dianne." Patient then says "she's getting madder. It's building up. There's no way you can help. It'll kill everybody." Unclear in context whether this represents hector kathy psychosis, micro-psychosis in setting of BPD or adjustment disorder in setting of intellectual disability. Psychiatric interview is limited because of the patient's degree of psychiatric impairment. No acute physical complaints. Given patient's degree of psychiatric impairment and need for HCS, I have reached out to friend Elicia William at [phone]. Ms. William reports that she has known the patient for about 6 months and that patient has been residing with her. Ms. William has been controlling and dispensing medications for the patient. She is willing to act as HCS. She provides a med list as follows: Depakote 750mg BID (level was reportedly recently checked and was too high and so dose was reduced to 250mg BID) BuSpar 10mg TID p.r.n. anxiety Cogentin 1mg BID Valacyclovir 500mg daily Simvastatin 20mg qHS Abilify Maintena 400mg IM, last administration date unclear. Review of Systems unobtainable due to mental condition PMFSH - History History Provided By: Patient - Medical History Medical History: Medical History (Last Reviewed 02/16/18 @ 21:35 by Corrina Holder RN) Bipolar disorder (Acute) ADHD Anxiety Asthma Bipolar 1 disorder Depression Seizure - Surgical History Surgical History: Surgical History (Last Reviewed 02/16/18 @ 21:35 by Corrina Holder RN) No history of previous surgery (Acute) No history of previous surgery - Tobacco History Second Hand Smoke Exposure: Yes Tobacco Use In Past 30 Days: Yes Smoking Status: Current every day smoker Tobacco Type: Cigarettes - Alcohol History How Often Do You Have a Drink Containing Alcohol: Never - Substance Use History Substance History: Past History - Immunization History Tetanus Immunization: <5 Years Hx Influenza Vaccine This Season: Yes Medications and Allergies Active Medications: Active Medications Al Hydrox/Mg Hydrox/Simethicone (Mag-Al Plus Susp Liq) 30 ml PO Q6H PRN PRN Reason: DYSPEPSIA Al Hydroxide/Mg Hydroxide (Milk Of Magnesia Liq) 30 ml PO Q12H PRN PRN Reason: Mild Constipation Bisacodyl (Dulcolax Supp) 10 mg RECTAL DAILY PRN PRN Reason: SEVERE CONSITIPATION Divalproex Sodium (Depakote Dr) 500 mg PO BID [facility] Last Admin: 02/17/18 21:09 Dose: Not Given Lactulose (Lactulose Liq) 30 ml PO DAILY PRN PRN Reason: SEVERE CONSITIPATION Quetiapine Fumarate (Seroquel) 50 mg PO BID [facility] Last Admin: 02/17/18 21:09 Dose: Not Given Senna/Docusate Sodium (Maile-Colace) 1 tab PO BID [facility] Last Admin: 02/17/18 21:09 Dose: Not Given Sennosides (Senokot) 17.2 mg PO Q12H PRN PRN Reason: Moderate Constipation Allergies Allergy/AdvReac Type Severity Reaction Status Date / Time No Known Allergies Allergy Verified 02/17/18 15:15 Home Medications Medication Instructions Recorded Confirmed Type benztropine 1 mg PO BID 12/27/17 02/16/18 History buspirone 10 mg PO TID 12/27/17 02/16/18 History divalproex [Depakote] 750 mg PO BID 12/27/17 02/16/18 History hydroxyzine HCl 25 mg PO TID 12/27/17 02/16/18 History quetiapine 50 mg PO HS 12/27/17 02/16/18 History simvastatin 20 mg PO QPM 12/27/17 02/16/18 History valacyclovir 500 mg PO DAILY 12/27/17 02/16/18 History Exam Vital signs: Vital Signs 02/17/18 18:00 02/18/18 05:37 Temperature 98.4 F 98.2 F Pulse Rate 107 H 103 H Respiratory Rate 18 18 Blood Pressure 120/58 L 121/70 Pulse Oximetry 97 99 Intake & Output 02/17/18 02/18/18 02/18/18 18:59 06:59 18:59 Weight 101.7 kg Other: Weight On Admission 101.7 kg Narrative: Physical exam completed by ED provider. On my examination today, the patient appears to be in no acute physical distress. No motor abnormalities noted. Labs and vital signs reviewed: Laboratory Tests 02/16/18 02/16/18 02/16/18 06:32 06:32 06:32 WBC 6.2 Hgb 15.4 H Plt Count 183 Sodium Potassium Chloride Carbon Dioxide Anion Gap BUN Creatinine Estimated GFR AST 14 L ALT 20 Alkaline Phosphatase 63 TSH 2.330 Beta HCG, Quant Valproic Acid 49 L U Cannabinoids Screen 02/16/18 02/18/18 02/18/18 14:20 06:59 06:59 WBC Hgb Plt Count Sodium 141 Potassium 3.5 Chloride 106 Carbon Dioxide 23.7 Anion Gap 11 BUN 15 Creatinine 0.68 Estimated GFR Greater than 89 AST ALT Alkaline Phosphatase TSH Beta HCG, Quant Less than 1 Valproic Acid U Cannabinoids Screen Pos H Mental Status Examination Appearance: Appropriate Consciousness: Alert Orientation: Person, Place (At least) Motor Activity: Normal gait Speech: Unremarkable Language: Adequate Fund of Knowledge: Adequate Attention and Concentration: Adequate Memory: Unremarkable Mood: Oppositional, Irritable Affect: Irritable Thought Process & Associations: Loose associations Thought Content: Bizarre thinking, Hallucinations, Thought blocking Hallucination Type: Auditory Delusion Type: Bizarre, Paranoid Suicidal Ideation: No Suicidal Plan: No Suicidal Intention: No Homicidal Ideation: Yes Homicidal Plan: No Homicidal Intention: No Insight: Poor Judgment: Poor Assessment and Plan - Assessment (1) Unspecified psychosis Code(s): F29 - Unspecified psychosis not due to a substance or known physiological condition Status: Acute (2) Cannabis abuse Code(s): F12.10 - Cannabis abuse, uncomplicated Status: Chronic (3) Borderline personality disorder Code(s): F60.3 - Borderline personality disorder Status: Chronic (4) Intellectual disability Code(s): F79 - Unspecified intellectual disabilities Status: Suspected - Plan Plan: Given the circumstances of the patient's presentation here and her presentation on my examination today, I concur with Dr. Lea that the patient meets criteria for involuntary psychiatric hospitalization under the Snyder act. I have completed the second opinion paperwork. Given the patient's degree of psychiatric impairment, I further municipal court judge that she is not capacitated to consent for psychotropic medications. I have therefore requested a healthcare surrogate /guardian advocate and completed the appropriate paperwork. I have obtained consent from healthcare surrogate for psychotropic medications including Depakote and Seroquel. I will add Ativan as needed for anxiety, Cogentin as needed for EPS, melatonin as needed for sleep. E-FORCSE reviewed for the Ativan. Continue to monitor on the high acuity unit. Continue other medications and care as ordered. Justification for Continued Inpatient Stay: Impairment in reality construction. High risk for decompensation in less restrictive environment. Discharge Planning: Pending psychiatric stabilization. Request Healthcare Surrogate/Guardian Advocate?: Yes
[2018-02-18] MEDS: Senna/Docusate Sodium 8.6/50 MG Tablet PO SCH (10:53)
[2018-02-18] MEDS: QUEtiapine 25 MG Tablet PO SCH ×2 (10:53→20:12)
[2018-02-18] MEDS: Divalproex 500 MG DR Tablet PO SCH ×2 (10:53→20:12)
[2018-02-18] MEDS ORDERED: Acetaminophen 325 MG Tablet PO PRN (10:59)
[2018-02-18] MEDS ORDERED: Benztropine Inj 2 MG/2 ML Ampul IM PRN (10:59)
[2018-02-18 17:29] LABS: Hemoglobin A1c 4.7 % (4.3-6.0)
[2018-02-19] MEDS: Divalproex 500 MG DR Tablet PO SCH ×2 (08:09→21:41)
[2018-02-19] MEDS: valACYclovir 500 MG Tab PO SCH (08:10)
[2018-02-19] MEDS: QUEtiapine 25 MG Tablet PO SCH ×2 (08:10→21:44)
--- NOTE | 2018-02-19 11:17 | P.PNPSY ---
Subjective Remarks: Patient seen and examined with nurse. Chart reviewed. Case discussed with nursing staff who has confirmed that last administration of Abilify Maintena was on 12/16/17. Patient is noted to be calmer by nursing staff. On my examination today, the patient is in her room. She is somewhat soft spoken and withdrawn. She endorses ongoing auditory hallucinations of demons. She denies any suicidal or homicidal ideation. She remains fairly childlike. She says that she feels upset "because I'm trying to save y'all," apparently from the demon. No side effects from medications. No physical complaints. I did endeavor to reach out the patient's healthcare surrogate today to obtain consent for Abilify Maintena. I left a generic voicemail requesting a call back. Vital Signs Temp Pulse Resp BP Pulse Ox 02/19/18 06:07 97.5 F L 99 H 17 114/70 100 Intake and Output 02/19/18 02/19/18 02/19/18 06:59 14:59 22:59 Other: Weight 102.5 kg Laboratory Results - last 24 hr 02/18/18 06:59 Hemoglobin A1c 4.7 Labs reviewed. Review of Systems All other systems reviewed negative except as stated in HPI Mental Status Examination Appearance: Appropriate Consciousness: Alert Orientation: Person, Place (At least) Motor Activity: Other (No motor abnormalities noted) Speech: Unremarkable Language: Adequate Fund of Knowledge: Adequate Attention and Concentration: Adequate Memory: Unremarkable Mood: Other (Somewhat dysphoric) Affect: Blunt Thought Process & Associations: Circumstantial Thought Content: Bizarre thinking, Hallucinations, Thought blocking Hallucination Type: Auditory Delusion Type: Bizarre, Paranoid Suicidal Ideation: No Suicidal Plan: No Suicidal Intention: No Homicidal Ideation: No Homicidal Plan: No Homicidal Intention: No Insight: Poor Judgment: Poor Assessment and Plan - Assessment (1) Unspecified psychosis Code(s): F29 - Unspecified psychosis not due to a substance or known physiological condition Status: Acute (2) Cannabis abuse Code(s): F12.10 - Cannabis abuse, uncomplicated Status: Chronic (3) Borderline personality disorder Code(s): F60.3 - Borderline personality disorder Status: Chronic (4) Intellectual disability Code(s): F79 - Unspecified intellectual disabilities Status: Suspected - Plan Plan: Titrate Seroquel to 75 mg twice daily to target reported ongoing psychotic symptoms. Continue Depakote and other medications as ordered. Given period of nonadherence from Roxy Mcneil, patient would likely require oral supplementation following resumption of this medication, although we could consider supplementing with the Seroquel. Continue to monitor on the inpatient unit. Continue other medications and care as ordered. Justification for Continued Inpatient Stay: Medication changes. Impairment in reality construction. High risk for decompensation in less restrictive environment. Discharge Planning: Pending psychiatric stabilization. Request Healthcare Surrogate/Guardian Advocate?: Yes
[2018-02-20] MEDS: Divalproex 500 MG DR Tablet PO SCH ×2 (08:06→21:43)
[2018-02-20] MEDS: QUEtiapine 25 MG Tablet PO SCH (08:06)
[2018-02-20] MEDS: valACYclovir 500 MG Tab PO SCH (08:06)
--- NOTE | 2018-02-20 11:26 | P.PNPSY ---
Subjective Remarks: Patient seen and examined with nurse. Chart reviewed. Case discussed with nursing staff who reports patient is reluctant to take medications although ultimately does comply. Patient also reportedly remains somewhat bizarre. Case discussed in treatment team. On my examination today, the patient is somewhat perseverative on discharge. She remains childlike. She says that she is still hearing the voice of the demon Hektor although she is trying to ignore him. She denies any SI or HI. No reported side effects from medications. No physical complaints. Once again endeavored to reach out to patient's healthcare surrogate to obtain consent for Abilify Maintena. I left a generic voicemail requesting a call back. Vital Signs Temp Resp BP 02/20/18 05:44 97.4 F L 18 118/61 Labs reviewed. Review of Systems All other systems reviewed negative except as stated in HPI Mental Status Examination Appearance: Appropriate Consciousness: Alert Orientation: Person, Place (At least) Motor Activity: Other (No abnormal motor movements noted) Speech: Unremarkable Language: Adequate Fund of Knowledge: Inadequate Attention and Concentration: Adequate Memory: Unremarkable Mood: Oppositional (Mild) Affect: Other (Childlike) Thought Process & Associations: Circumstantial Thought Content: Hallucinations, Preoccupations Hallucination Type: Auditory Delusion Type: None Suicidal Ideation: No Suicidal Plan: No Suicidal Intention: No Homicidal Ideation: No Homicidal Plan: No Homicidal Intention: No Insight: Poor Judgment: Poor Assessment and Plan - Assessment (1) Unspecified psychosis Code(s): F29 - Unspecified psychosis not due to a substance or known physiological condition Status: Acute (2) Cannabis abuse Code(s): F12.10 - Cannabis abuse, uncomplicated Status: Chronic (3) Borderline personality disorder Code(s): F60.3 - Borderline personality disorder Status: Chronic (4) Intellectual disability Code(s): F79 - Unspecified intellectual disabilities Status: Suspected - Plan Plan: Titrate Seroquel to 100 mg twice daily to target psychotic symptoms. Abilify Maintena cannot be resumed as I have been unable to obtain consent for this medication. Continue to monitor on the high acuity unit. Plan to check a Depakote level after the weekend. Continue other medications and care as ordered. Justification for Continued Inpatient Stay: Medication changes. Impairment in reality construction. High risk for decompensation in less restrictive environment. Discharge Planning: Pending psychiatric stabilization. Request Healthcare Surrogate/Guardian Advocate?: Yes
[2018-02-20] MEDS: Melatonin 5 MG Tablet PO PRN (21:43)
[2018-02-20] MEDS: QUEtiapine 100 MG Tablet PO SCH (21:43)
[2018-02-21] MEDS: QUEtiapine 100 MG Tablet PO SCH ×2 (09:05→20:28)
[2018-02-21] MEDS: Divalproex 500 MG DR Tablet PO SCH ×2 (09:05→20:28)
[2018-02-21] MEDS: valACYclovir 500 MG Tab PO SCH (09:05)
--- NOTE | 2018-02-21 16:04 | P.PNPSY ---
Subjective Remarks: Pt seen and discussed with staff. Chart reviewed. She is compliant with medications and care. She continues to c/o of a demon named Dung talking to her, but states that she has been able to keep it under control. She has been less agitated and in better behavioral control today and interacting more on unit. NO SI/HI Mental Status Examination Appearance: Appropriate Consciousness: Alert Orientation: Person, Place (At least) Motor Activity: Other (No abnormal motor movements noted) Speech: Unremarkable Language: Adequate Fund of Knowledge: Inadequate Attention and Concentration: Adequate Memory: Unremarkable Mood: Oppositional (Mild) Affect: Other (Childlike) Thought Process & Associations: Circumstantial Thought Content: Hallucinations, Preoccupations Hallucination Type: Auditory Delusion Type: None Suicidal Ideation: No Suicidal Plan: No Suicidal Intention: No Homicidal Ideation: No Homicidal Plan: No Homicidal Intention: No Insight: Poor Judgment: Poor Assessment and Plan - Assessment (1) Unspecified psychosis Code(s): F29 - Unspecified psychosis not due to a substance or known physiological condition Status: Acute (2) Cannabis abuse Code(s): F12.10 - Cannabis abuse, uncomplicated Status: Chronic (3) Borderline personality disorder Code(s): F60.3 - Borderline personality disorder Status: Chronic (4) Intellectual disability Code(s): F79 - Unspecified intellectual disabilities Status: Suspected - Plan Plan: Continue current tx plan Justification for Continued Inpatient Stay: impairments in reality testing Request Healthcare Surrogate/Guardian Advocate?: Yes
[2018-02-22] MEDS: LORazepam 1 MG Tablet PO PRN (05:38)
[2018-02-22] MEDS ORDERED: Haloperidol Inj 5 MG/ML Ampul ONE (08:23)
[2018-02-22] MEDS: QUEtiapine 100 MG Tablet PO SCH ×2 (08:36→20:06)
[2018-02-22] MEDS: Divalproex 500 MG DR Tablet PO SCH ×2 (08:36→20:06)
[2018-02-22] MEDS: valACYclovir 500 MG Tab PO SCH (08:36)
[2018-02-22] MEDS ORDERED: Haloperidol Inj 5 MG/ML Ampul IM ONE ×2 (08:45→16:00)
--- NOTE | 2018-02-22 11:35 | P.PNPSY ---
Subjective Remarks: Chart reviewed and discussed with nursing staff. Earlier a Andrew morales was called because patient was punching the wall across from the nurse's station. Dr. Rosenberg was called and an ETO was ordered. Nursing staff report that she has been irritable and difficult to redirect. Patient is currently awake and getting ready for lunch. She appears to have regrouped and following directions. Review of Systems All other systems reviewed negative except as stated in HPI Mental Status Examination Appearance: Appropriate Consciousness: Alert Orientation: Person, Place (At least) Motor Activity: Other (No abnormal motor movements noted) Speech: Unremarkable Language: Adequate Fund of Knowledge: Inadequate Attention and Concentration: Adequate Memory: Unremarkable Mood: Angry, Oppositional (Mild) Affect: Irritable, Other (Childlike) Thought Process & Associations: Circumstantial Thought Content: Hallucinations, Preoccupations Hallucination Type: Auditory Delusion Type: None Suicidal Ideation: No Suicidal Plan: No Suicidal Intention: No Homicidal Ideation: No Homicidal Plan: No Homicidal Intention: No Insight: Poor Judgment: Poor Assessment and Plan - Assessment (1) Adjustment disorder with mixed disturbance of emotions and conduct Code(s): F43.25 - Adjustment disorder with mixed disturbance of emotions and conduct Status: Acute (2) Borderline personality disorder Code(s): F60.3 - Borderline personality disorder Status: Chronic - Plan Plan: Continue current tx plan Justification for Continued Inpatient Stay: Moving patient to a less restrictive environment may result in her decompensation. Request Healthcare Surrogate/Guardian Advocate?: Yes
[2018-02-22] MEDS ORDERED: Chlorpromazine Inj 50 MG/2 ML Ampule IM ONE (17:45)
--- NOTE | 2018-02-23 08:37 | P.PNPSY ---
Subjective Remarks: Patient seen and examined with nurse. Chart reviewed. Case discussed with nursing staff who reports patient was psychotic and agitated yesterday, requiring multiple ETO's in seclusion. She was reportedly seeing people outside of her window. Case discussed with counselor. On my examination today , the patient continues to endorse auditory hallucinations but denies command auditory hallucinations to hurt herself or others. She feels that people are "messing with my brain. They are taking advantage of my brain." She says that she is trying to save people because "I know there are demons after them." She denies any suicidal or homicidal ideation initially but becomes increasingly threatening during the course of the interview, finally telling this provider "you'll get killed. You'll lose out on your family. The stronger [the] meds you give me, the stronger I get. You won't have a family when I am done." Denies side effects from medications. No physical complaints. I was called by the nurse following my departure from the unit. Nurse indicated that patient was growing increasingly agitated in the setting of her psychosis and had to be sequestered into the short connolly. I have ordered the patient medicated with Thorazine 100mg IM ETO. I endeavored to reach patient's HCS, Ms. William on two separate occasions this morning to discuss med changes, leaving generic requesting a call back. Vital Signs Temp Pulse Resp BP Pulse Ox 02/22/18 15:12 98.6 F 103 H 18 110/69 100 Labs reviewed. No new labs. EKG reveals normal sinus rhythm with a QTc 434ms, not prolonged. Review of Systems All other systems reviewed negative except as stated in HPI (Limitation: Psychosis) Mental Status Examination Appearance: Appropriate Consciousness: Alert Orientation: Person, Place (At least) Motor Activity: Other (No motoric abnormalities noted) Speech: Unremarkable Language: Adequate Fund of Knowledge: Inadequate Attention and Concentration: Adequate Memory: Unremarkable Mood: Oppositional, Irritable Affect: Irritable, Other (Remains childlike) Thought Process & Associations: Circumstantial Thought Content: Hallucinations, Preoccupations, Delusional Hallucination Type: Auditory Delusion Type: Other (Thought manipulation) Suicidal Ideation: No Suicidal Plan: No Suicidal Intention: No Homicidal Ideation: No (Denies but see above) Homicidal Plan: No Homicidal Intention: No Insight: Poor Judgment: Poor Assessment and Plan - Assessment (1) Unspecified psychosis Code(s): F29 - Unspecified psychosis not due to a substance or known physiological condition Status: Acute (2) Cannabis abuse Code(s): F12.10 - Cannabis abuse, uncomplicated Status: Chronic (3) Borderline personality disorder Code(s): F60.3 - Borderline personality disorder Status: Chronic (4) Intellectual disability Code(s): F79 - Unspecified intellectual disabilities Status: Suspected - Plan Plan: Titrate Seroquel to 200 mg twice daily to manage psychotic symptoms. I have still been unable to reach healthcare surrogate to obtain proper consent for Roxy Mcneil; I will continue to try to do so. Continue Depakote as ordered. Obtain a Depakote level in the morning. Continue to monitor on the high acuity unit. Continue other medications and care as ordered. Justification for Continued Inpatient Stay: Impairment in reality construction. Medication changes. High risk for decompensation in less restrictive environment. Discharge Planning: Pending psychiatric stabilization. Request Healthcare Surrogate/Guardian Advocate?: Yes
[2018-02-23] MEDS: Divalproex 500 MG DR Tablet PO SCH ×2 (09:07→20:30)
[2018-02-23] MEDS: valACYclovir 500 MG Tab PO SCH (09:07)
[2018-02-23] MEDS ORDERED: Chlorpromazine Inj 50 MG/2 ML Ampule IM STA (10:35)
[2018-02-23] MEDS ORDERED: ABILIFY MAINTENA 400 MG IM ONE (15:00)
[2018-02-24] MEDS: Melatonin 5 MG Tablet PO PRN ×2 (02:41→20:54)
[2018-02-24] MEDS: valACYclovir 500 MG Tab PO SCH (08:32)
[2018-02-24] MEDS: Divalproex 500 MG DR Tablet PO SCH ×2 (08:32→20:54)
--- NOTE | 2018-02-24 10:37 | P.TTN ---
- Patient Problems Problems: 1. Discharge planning 2. Medication compliance 3. Knowledge deficit 4. Lack of coping skills - Progress Toward Goals Provider Present: Dr. Monica Spangler (Patient presents as genuinely psychotic, disorganized, Dr. Spangler is titrating medications, patient remains for further stabilization.) Psychiatric Counselors Present: Samuel Beasley Jr., [facility] (Counselor will be in contact with the [employer] injection moulding machine operator regarding a safe discharge plan. At this time, it appears the patient will return to her previous residence where she is cared for by [employer] injection moulding machine operator.) Group Spec/RT/OT/JOYCE Present: ISIAH Sorenson (Patient attends select groups and typically needs redirection.) - Documentation Teaching Recipient: Patient
--- NOTE | 2018-02-24 12:29 | P.PNPSY ---
Subjective Remarks: Patient seen and examined with nurse. Chart reviewed. Case discussed with nursing staff. Patient received Abilify Maintena injection yesterday and is noted to be doing somewhat better today. She has had no outbursts so far today. Case discussed in treatment team. On my examination today, the patient is sleeping in her room. She appears to be sleeping quite soundly and can be awakened only for a brief interview. She tells me "I know what you guys are doing." Regarding the medications she says "it makes me stronger." She rambles about "Donnie and God the son." Besides some possible sedation, no evident side effects from medications. No physical complaints. Vital Signs Temp Pulse Resp BP Pulse Ox 02/24/18 05:55 97.9 F 106 H 18 132/92 H 97 Labs reviewed. Patient refused Depakote level and associated laboratories this morning. I will reorder these for tomorrow morning and have emphasized to patient the importance of allowing these laboratories to be drawn. Mental Status Examination Appearance: Appropriate Consciousness: Asleep (Able to be awakened) Orientation: Person, Place (At least) Motor Activity: Other (No abnormal motor movements noted) Speech: Unremarkable Language: Adequate Fund of Knowledge: Inadequate Attention and Concentration: Adequate Memory: Unremarkable Mood: Other (Calm) Affect: Blunt, Other (Remains childlike) Thought Process & Associations: Circumstantial Thought Content: Preoccupations, Delusional Hallucination Type: None Delusion Type: Bizarre Suicidal Ideation: No Homicidal Ideation: No Insight: Poor Judgment: Poor Assessment and Plan - Assessment (1) Unspecified psychosis Code(s): F29 - Unspecified psychosis not due to a substance or known physiological condition Status: Acute (2) Cannabis abuse Code(s): F12.10 - Cannabis abuse, uncomplicated Status: Chronic (3) Borderline personality disorder Code(s): F60.3 - Borderline personality disorder Status: Chronic (4) Intellectual disability Code(s): F79 - Unspecified intellectual disabilities Status: Suspected - Plan Plan: Patient is possibly experiencing some mild sedation from medications. I will hold off on further titration of medications for today. I will continue current medications as ordered. I will reorder Depakote level and associated laboratories for tomorrow morning. Continue to monitor on inpatient unit. Continue other medications and care as ordered. Justification for Continued Inpatient Stay: Risk for decompensation in less restrictive environment. Discharge Planning: Pending psychiatric stabilization. Request Healthcare Surrogate/Guardian Advocate?: Yes
[2018-02-25 07:46] LABS: Albumin 3.1 g/dL (3.4-5.0)
[2018-02-25 07:48] LABS: Total Protein 6.7 g/dL (6.4-8.2)
[2018-02-25] MEDS: Divalproex 500 MG DR Tablet PO SCH ×2 (08:29→20:52)
[2018-02-25] MEDS: valACYclovir 500 MG Tab PO SCH (08:30)
--- NOTE | 2018-02-25 11:53 | P.PNPSY ---
Subjective Remarks: Patient seen and examined with nurse. Chart reviewed. Case discussed with nursing staff. Nursing reports that the delivery of [place] papers triggered a temper tantrum and the patient today. She was also noted to be banging on the window of the nursing station. On my examination to day, the patient is perseverative on discharge. She remains quite childlike and her affect is quite labile. She is unable to tolerate an interview of even modest duration and engages in catastrophizing and black/white thinking. She denies any SI or HI. Denies any AVH. No side effects from medications besides some mild tiredness. No physical complaints. Vital Signs Temp Pulse Resp BP Pulse Ox 02/24/18 16:20 98.6 F 118 H 18 130/68 98 Laboratory Results - last 24 hr 02/25/18 02/25/18 06:54 06:54 Total Bilirubin 0.3 Direct Bilirubin 0.1 Indirect Bilirubin 0.2 AST 8 L ALT 20 Alkaline Phosphatase 51 Ammonia 44 H Total Protein 6.7 Albumin 3.1 L Valproic Acid 101 H* Labs reviewed. Depakote level within the therapeutic range for psychiatric indication. Ammonia level mildly elevated with no signs or symptoms of hyperammonemic encephalopathy. Review of Systems All other systems reviewed negative except as stated in HPI Mental Status Examination Appearance: Appropriate Consciousness: Alert Orientation: Person, Place (At least) Motor Activity: Other (No motoric abnormalities noted) Speech: Unremarkable Language: Adequate Fund of Knowledge: Inadequate Attention and Concentration: Adequate Memory: Unremarkable Mood: Oppositional Affect: Labile Thought Process & Associations: Circumstantial Thought Content: Preoccupations Hallucination Type: None Delusion Type: None Suicidal Ideation: No Suicidal Plan: No Suicidal Intention: No Homicidal Ideation: No Homicidal Plan: No Homicidal Intention: No Insight: Poor Judgment: Poor Assessment and Plan - Assessment (1) Unspecified psychosis Code(s): F29 - Unspecified psychosis not due to a substance or known physiological condition Status: Acute (2) Cannabis abuse Code(s): F12.10 - Cannabis abuse, uncomplicated Status: Chronic (3) Borderline personality disorder Code(s): F60.3 - Borderline personality disorder Status: Chronic (4) Intellectual disability Code(s): F79 - Unspecified intellectual disabilities Status: Suspected - Plan Plan: Titrate Seroquel to 200 mg in the morning and 300 mg at bedtime for mood stabilization. This is supplementing long-acting injectable Abilify Maintena. Continue other psychotropics as ordered. Continue to monitor on the inpatient unit. Continue other medications and care as ordered. Justification for Continued Inpatient Stay: Medication changes. Risk for decompensation in less restrictive setting. Discharge Planning: Pending psychiatric stabilization. [place] tomorrow. Request Healthcare Surrogate/Guardian Advocate?: Yes
[2018-02-25] MEDS: Melatonin 5 MG Tablet PO PRN (20:53)
--- NOTE | 2018-02-26 02:09 | ECG ---
Date Performed: 02/22/2018 Time Performed: 20:54:23 PTAGE: 22 years EKG: Sinus rhythm NORMAL ECG PREVIOUS TRACING : 12/27/2017 20.08 Since the previous tracing, no significant change noted DOCTOR: Keaton Bradford Interpretating Date/Time 02/26/2018 02:07:29
[2018-02-26] MEDS: valACYclovir 500 MG Tab PO SCH (08:05)
[2018-02-26] MEDS: Divalproex 500 MG DR Tablet PO SCH ×2 (08:05→20:09)
--- NOTE | 2018-02-26 09:25 | P.PNPSY ---
Subjective Remarks: Patient seen and examined. Chart reviewed. Case discussed with nursing staff. On my examination today, the patient denies SI or HI. She reports hearing the voice of Donnie saying that he will "protect everyone." She denies any command auditory hallucinations to hurt her self or others. Affect is somewhat blunted today. No side effects from medications. No physical complaints. Patient did visit with healthcare surrogate/friend Ms. William prior to court today. Ms. William does not yet feel that patient is psychiatrically stable enough for discharge back to her home. She is willing to have the patient home once stable. Brand Specialist in [place] [address] noted patient seemed a little sedated; I do not perceive sedation so much as affective blunting as noted above. During court, Ms. William observed that this blunting occurs when patient is on Seroquel. I did try to reach out to Ms. William to see if she might consent for a different antipsychotic and left a generic VM requesting a call back. Vital Signs Temp Pulse Resp BP Pulse Ox 02/26/18 05:22 97.6 F 106 H 18 108/68 98 Intake and Output 02/26/18 02/26/18 02/26/18 06:59 14:59 22:59 Other: Date of Last Bowel Movement 02/26/18 Weight 104.2 kg Labs reviewed. No new labs. Review of Systems All other systems reviewed negative except as stated in HPI Mental Status Examination Appearance: Appropriate Consciousness: Alert Orientation: Person, Place (At least) Motor Activity: Other (No motoric abnormalities appreciated) Speech: Unremarkable Language: Adequate Fund of Knowledge: Inadequate Attention and Concentration: Adequate Memory: Unremarkable Mood: Other (Calm) Affect: Blunt Thought Process & Associations: Circumstantial Thought Content: Hallucinations, Preoccupations Hallucination Type: Auditory (Donnie) Delusion Type: None Suicidal Ideation: No Suicidal Plan: No Suicidal Intention: No Homicidal Ideation: No Homicidal Plan: No Homicidal Intention: No Insight: Poor Judgment: Poor Assessment and Plan - Assessment (1) Unspecified psychosis Code(s): F29 - Unspecified psychosis not due to a substance or known physiological condition Status: Acute (2) Cannabis abuse Code(s): F12.10 - Cannabis abuse, uncomplicated Status: Chronic (3) Borderline personality disorder Code(s): F60.3 - Borderline personality disorder Status: Chronic (4) Intellectual disability Code(s): F79 - Unspecified intellectual disabilities Status: Suspected - Plan Plan: Continue current psychotropic medications as ordered pending further discussion with healthcare surrogate. Continue to monitor on the inpatient unit. Continue other medications and care as ordered. Patient's case was presented to the [place] and placed in continuance for 1 week with a friend, Ms. William to serve as health care surrogate. Justification for Continued Inpatient Stay: Risk for decompensation in less restrictive environment. Discharge Planning: Pending stabilization Request Healthcare Surrogate/Guardian Advocate?: Yes
[2018-02-27] MEDS: Melatonin 5 MG Tablet PO PRN (04:59)
--- NOTE | 2018-02-27 08:46 | P.TTN ---
- Patient Problems Problems: 1. Discharge planning 2. Medication compliance 3. Knowledge deficit 4. Lack of coping skills - Progress Toward Goals Provider Present: Dr. Monica Spangler (Patient presents as genuinely psychotic, disorganized, Dr. Spangler is titrating medications, patient remains for further stabilization. 06/[address] Spangler will be adjusting medications over the weekend. Patient is in need of further stabilization) Psychiatric Counselors Present: Samuel Beasley Jr., [facility] (Counselor will be in contact with the [facility] byproducts extractor regarding a safe discharge plan. At this time, it appears the patient will return to her previous residence where she is cared for by [facility] byproducts extractor. 02/27 2018 patient will return to [facility] upon discharge. ) Group Spec/RT/OT/JOYCE Present: CHE Keene (Attends select groups.), ISIAH Sorenson (Patient attends select groups and typically needs redirection.) - Documentation Teaching Recipient: Patient
[2018-02-27] MEDS: valACYclovir 500 MG Tab PO SCH (08:47)
[2018-02-27] MEDS: Divalproex 500 MG DR Tablet PO SCH ×2 (08:48→20:50)
--- NOTE | 2018-02-27 09:57 | P.PNPSY ---
Subjective Remarks: Patient seen and examined with counselor. Chart reviewed. Case discussed with nursing staff. Case discussed in treatment team. Patient noted to be attending groups and her behavior is reportedly in better control with medication adjustments. On my examination today, the patient is awake and alert with no evidence of sedation. She is quite discharged focused, and there is some mild delusion regarding discharge. She also makes ongoing bizarre statements at times, for example saying that she has been "told to stay away from aces and [place]." Denies side effects from medications. No physical complaints. I did endeavor to reach patient's healthcare surrogate, Ms. William by phone. I left a generic voicemail with callback number. Vital Signs Temp Pulse Resp BP Pulse Ox 02/27/18 06:28 98.0 F 99 H 16 110/67 98 02/26/18 17:21 98.2 F 103 H 18 124/76 98 Intake and Output 02/27/18 02/27/18 02/27/18 06:59 14:59 22:59 Other: Date of Last Bowel Movement 02/26/18 Labs reviewed. No new labs. Review of Systems All other systems reviewed negative except as stated in HPI Mental Status Examination Appearance: Appropriate Consciousness: Alert Orientation: Person, Place (At least) Motor Activity: Other (No abnormal motor movements noted) Speech: Unremarkable Language: Adequate Fund of Knowledge: Inadequate Attention and Concentration: Adequate Memory: Unremarkable Mood: Other (Calm) Affect: Blunt, Other (Childlike) Thought Process & Associations: Circumstantial Thought Content: Bizarre thinking, Hallucinations, Preoccupations Hallucination Type: None Delusion Type: Paranoid (Mild) Suicidal Ideation: No Homicidal Ideation: No Insight: Poor Judgment: Poor Assessment and Plan - Assessment (1) Unspecified psychosis Code(s): F29 - Unspecified psychosis not due to a substance or known physiological condition Status: Acute (2) Cannabis abuse Code(s): F12.10 - Cannabis abuse, uncomplicated Status: Chronic (3) Borderline personality disorder Code(s): F60.3 - Borderline personality disorder Status: Chronic (4) Intellectual disability Code(s): F79 - Unspecified intellectual disabilities Status: Suspected - Plan Plan: Titrate Seroquel to 200mg qAM and 400mg qHS to target residual psychiatric symptoms. Continue Depakote as ordered. Plan to obtain follow-up Depakote and ammonia level after the weekend to ensure that these are stable and not increasing. Continue to monitor on the inpatient unit. Continue other medications and care as ordered. Justification for Continued Inpatient Stay: Medication changes. Risk for decompensation in less restrictive environment. Discharge Planning: Pending psychiatric stabilization. Possible discharge after the weekend. Request Healthcare Surrogate/Guardian Advocate?: Yes
[2018-02-28] MEDS: valACYclovir 500 MG Tab PO SCH (08:07)
[2018-02-28] MEDS: Divalproex 500 MG DR Tablet PO SCH ×2 (08:08→20:40)
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
[2018-02-28] MEDS: LORazepam 1 MG Tablet PO PRN (20:39)
[2018-03-01] MEDS: LORazepam 1 MG Tablet PO PRN (04:21)
[2018-03-01] MEDS: Divalproex 500 MG DR Tablet PO SCH ×3 (08:17→21:48)
[2018-03-01] MEDS: valACYclovir 500 MG Tab PO SCH (08:17)
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
[2018-03-01 15:59] VITALS: O2SAT 99
[2018-03-02 06:00] VITALS: BP 106/53; PULSE 66; RESP 16; TEMP 98.4
[2018-03-02] MEDS: valACYclovir 500 MG Tab PO SCH (08:52)
[2018-03-02] MEDS: Divalproex 500 MG DR Tablet PO SCH (08:52)
--- NOTE | 2018-03-02 12:45 | P.DSPSY ---
Psychiatry Discharge Summary Inpatient Psychiatric care?: Yes Advance Directives: Unknown Reason for Unknown:: Due to Patient Condition Mental Health Advance Directive: No Health Care Proxy: No - Admission Admission Date: February 17, 2018 16:22 - Admission Diagnosis (1) Unspecified psychosis Code(s): F29 - Unspecified psychosis not due to a substance or known physiological condition Brief History: The patient is a 22-year-old woman, well known by department, she was DC this morning form ER, domiciled with friends, unemployed, supported by [facility], with a psychiatric history of intellectual disability, bipolar disorder, borderline personality disorder, multiple psychiatric hospitalizations, multiple suicidal attempts, self-cutting behavior, outpatient care in [facility], well known by the service, with a medical history of seizures, she is on Seroquel, BuSpar, benztropine(unknown doses), who presents now again today under BA by [employer] due to paranoia and erratic behavior in the streets. Apparently she was reporting to the police that people were following her. She was seen by me in the main ED, now uncooperative, stating she does not trust me and she wont Answer my questions. She seems to be internally stimulated and paranoid. As per nurses in the ER she has been talking to self and accusing staff of hiding information form her. PPHx: psychiatric history of intellectual disability, bipolar disorder, borderline personality disorder, multiple psychiatric hospitalizations, multiple suicidal attempts, self-cutting behavior, outpatient care in [facility], well known by the service, with a medical history of seizures, who presents under Snyder act. she is on Seroquel, BuSpar, benztropine PMHx: Seizures, and Depakote 500 mg twice daily Substance Hx : Occasional use of marijuana Social Hx: Patient was born and raised in [place], she lives in [facility] with friends, unemployed, supported by [facility], highest level of education is high risk Tobacco Use In Past 30 Days: Yes How Often Do You Have a Drink Containing Alcohol: Unable to Obtain Hospital Course: Patient was admitted to a locked, inpatient psychiatric unit. Appropriate precautions were in place throughout patient's hospital stay. Patient was seen and examined on the unit by psychiatry and also visited by counselor. Psychotropic medications were adjusted. Patient was restarted on long-acting injectable Abilify Maintena. Patient had improvement in presenting psychiatric symptomatology during the course of her hospital stay. Patient's behavior improved with the benefit of psychopharmacologic treatment, although some impulsivity persisted throughout patient's hospital stay, and this is attributed in part to her underlying intellectual disability and in part to her underlying borderline personality disorder, neither of which diagnoses would be further ameliorated by a longer inpatient psychiatric hospital stay. There was no evidence of any suicidality or homicidality on the inpatient unit. Collateral information was obtained from patient's friend/caregiver, Ms. William. On the day of discharge: Patient seen and examined with nurse Emilia and counselor Samuel. Chart reviewed. Depakote level 77, within the therapeutic range. Ammonia level improved at 41. No evidence of hyperammonemic encephalopathy on exam. Case discussed with nursing staff. Patient has been in good behavioral control today. She did become somewhat behaviorally dysregulated yesterday but was more easily redirectable versus earlier in the hospital stay according to nurse Joana, who cared for the patient yesterday. Case discussed with counselor who has been in contact with patient's friend/ caregiver who is reportedly comfortable with having the patient return home today. On my examination today, the patient is calm and cooperative. She voices readiness and desire to return home today. She denies any suicidal or homicidal ideation, intent or plan. Affect is euthymic if somewhat childlike, and I can elicit no depressive or hypomanic/manic symptoms. She denies any audiovisual hallucinations. I can elicit no delusional material. There is no evidence of ongoing impairment in reality construction. She denies side effects from medications. I have reviewed discharge medication regimen with the patient. She has no physical complaints. Suicide and violence risk assessment on day of discharge both suggest lower imminent risk from mental illness as defined under the Snyder act and level of function is adequate for outpatient care. She has no acute risk factors: No current suicidal or homicidal ideation, no severe depressive illness, no substance intoxication, no ongoing impairment in reality construction. As noted above, the patient's behavior is likely somewhat chronically unpredictable as a consequence of her intellectual disability and borderline personality style, but these would not be improved by retaining the patient longer on the inpatient unit. Based on my previous treatment history with the patient, I feel that the patient is at her psychiatric baseline and has maximized benefit from this inpatient psychiatric hospitalization. Patient will be discharged today with psychiatric follow-up as arranged by counselor. Patient is also to follow up with primary care. I have counseled the patient to return to the psychiatric emergency room for any concerning symptoms as part of a general safety plan. - Discharge Discharge Date: 03/02/18 - Discharge Diagnosis (1) Unspecified psychosis Diagnosis: Principal (Resolved) Code(s): F29 - Unspecified psychosis not due to a substance or known physiological condition Status: Resolved (2) Cannabis abuse Diagnosis: Secondary Code(s): F12.10 - Cannabis abuse, uncomplicated Status: Chronic (3) Borderline personality disorder Diagnosis: Secondary Code(s): F60.3 - Borderline personality disorder Status: Chronic (4) Intellectual disability Diagnosis: Secondary Code(s): F79 - Unspecified intellectual disabilities Status: Suspected Discharge Disposition: Home - Discharge Instructions Discharge Diet: Regular Diet Activities You Can Perform: Weight Bearing As Tolerat - Discharge Time <= 30 minutes Mental Status Examination Appearance: Appropriate Consciousness: Alert Orientation: Person, Place (At least) Motor Activity: Other (No abnormal motor movements noted) Speech: Unremarkable Language: Adequate Fund of Knowledge: Inadequate Attention and Concentration: Adequate Memory: Unremarkable Mood: Appropriate Affect: Euthymic, Other (Somewhat childlike) Thought Process & Associations: Intact, Logical, Linear Thought Content: Appropriate Hallucination Type: None Delusion Type: None Suicidal Ideation: No Suicidal Plan: No Suicidal Intention: No Homicidal Ideation: No Homicidal Plan: No Homicidal Intention: No Insight: Poor Judgment: Poor Mental Status Exam Remarks: Insight and judgment are chronically poor Discharge/Advance Care Plan - Results Vital Signs: Last Vital Signs Temp 98.4 F 03/02/18 06:00 Pulse 66 03/02/18 06:00 Resp 16 03/02/18 06:00 BP 106/53 L 03/02/18 06:00 Pulse Ox 99 03/01/18 15:57 Lab Results: Abnormal Lab Results 03/02/18 03/02/18 06:28 06:28 Ammonia 41 H Valproic Acid 77 Laboratory Results Hemoglobin A1c 4.7 % (4.3-6.0) 02/18/18 06:59 Triglycerides 126 mg/dL (42-150) 02/18/18 06:59 Cholesterol 152 mg/dL (120-200) 02/18/18 06:59 LDL Cholesterol, Calc 97 mg/dL (0-99) 10/17/18 06:59 HDL Cholesterol 29.5 mg/dL (40.0-60.0) L 02/18/18 06:59 Valproic Acid 77 mcg/mL (50-100) 03/02/18 06:28 Summary of Procedures: None done. Pending Results: None - Medications Number of antipsychotic medications at discharge: 2 (Seroquel and Abilify Maintena) Appropriate use of more than 1 antipsychotic med: Justification other than those in allowable values 1-3, document here: (Required multiple antipsychotics for stabilization) - Discharge Care Plan Goals to Promote Your Health: * To prevent worsening of your condition and complications * To maintain your health at the optimal level Directions to Meet Your Goals: Take your medications as prescribed Follow your dietary instruction Follow activity as directed Keep your appointments as scheduled Take your immunizations and boosters as scheduled If your symptoms worsen call your PCP, if no PCP go to Urgent Care Center or Emergency Room For 25/11 questions related to your inpatient stay or results of tests pending at discharge, please contact Dr. Ricky Spangler MD at Smoking is Dangerous to Your Health. Avoid second hand smoking
== END 2018-03-02 14:10 | disposition home or self-care (01) ==
LOC: NEDAMB 15:07 → NEDA 16:22 → H270 16:59
PROVIDERS: ADMIT Psychiatry & Neurology Psychiatry; ATTEND Psychiatry & Neurology Psychiatry